=== PATIENT | female | born 1980 | race Caucasian/White ===

== ENCOUNTER 2019-08-21 19:01 | Inpatient (IN) | payer MEDICARE, MEDICAID, SELFPAY | END 2019-08-23 15:27 | disposition home or self-care (01) | DRG 682 | PROVIDERS: Admitting Provider Internal Medicine; Emergency Provider Emergency Medicine; Family Provider Family Medicine; Visit Provider Student in an Organized Health Care Education/Training Program | DX: I12.0 Hypertensive chronic kidney disease with stage 5 chronic kidney disease or end stage renal disease (principal); N18.6 End stage renal disease; E87.2 Acidosis; Q61.3 Polycystic kidney, unspecified; Z99.2 Dependence on renal dialysis; B19.20 Unspecified viral hepatitis C without hepatic coma; F41.8 Other specified anxiety disorders; Z91.15 Patient's noncompliance with renal dialysis; F17.210 Nicotine dependence, cigarettes, uncomplicated ==

== ENCOUNTER → 2019-08-28 10:57 | Outpatient (BNVA) | payer MEDICARE, MEDICAID, SELFPAY | PROVIDERS: Family Provider Family Medicine; PCP Family Medicine; Visit Provider Internal Medicine | DX: B18.2 Chronic viral hepatitis C (principal); N18.6 End stage renal disease; Z99.2 Dependence on renal dialysis | CPT/HCPCS: 82105 ==

== ENCOUNTER 2019-08-29 22:51 | Observation (INO) | payer MEDICARE, MEDICAID, SELFPAY ==
[2019-08-29 22:54] VITALS: BP 155/107; PULSE 88; RESP 16; TEMP 37; O2SAT 97; BMI 14.1
--- NOTE | 2019-08-29 23:06 | XRR_ITS ---
PROCEDURE INFORMATION: Exam: XR Chest, 1 View Exam date and time: 08/29/2019 11:08 PM Age: 39 years old Clinical indication: Cough and shortness of breath; Chest pain; Type not specified; Prior surgery; Surgery date: 6+ months; Surgery type: Dialysis port; Additional info: Cp TECHNIQUE: Imaging protocol: XR of the chest Views: 1 view. COMPARISON: CR Chest 1 [place] [id number] 08/21/2019 7:30 PM FINDINGS: Lungs: Unremarkable. No consolidation. Pleural space: Unremarkable. No pleural effusion. No pneumothorax. Heart/Mediastinum: The heart remains mildly enlarged. Vasculature: Chronic vascular stent in the left axilla. Bones/joints: No acute infiltrate or effusion. XR/XR chest 1V portable [id number] IMPRESSION: No acute findings
--- NOTE | 2019-08-29 23:07 | ECG_ITS ---
Measurements Intervals [place] Rate: 93 P: 56 WA: 144 QRS: 65 QRSD: 86 T: 77 QT: 377 QTc: 470 SINUS RHYTHM POSSIBLE LEFT ATRIAL ENLARGEMENT [-0.1mV P WAVE IN V1/V2] INDETERMINATE AXIS Compared to ECG 08/21/2019 20:22:46 Indeterminate axis now present Electronically Signed On 08-30-2019 14:57:51 RAIL CAR MAINTENANCE MECHANIC by Abby Durán M.D. [id number]
[2019-08-29 23:15] VITALS: BP 155/107; PULSE 95; RESP 18; O2SAT 96
[2019-08-29 23:16] LABS: Basophils % 0.6 %; Eosinophils # 0.2 10^3/uL (0.0-0.8); Eosinophils % 3.4 %; Hematocrit 27.5 % (37.0-47.0); Hemoglobin 8.5 g/dL (11.5-15.3); Lymphocytes # 1.2 10^3/uL (0.8-4.8); Lymphocytes % 23.7 %; Mean Corpuscular HGB Conc 30.9 g/dL (30.0-36.0); Mean Corpuscular Hemoglobin 30.4 pg (28.0-34.0); Mean Corpuscular Volume 98.2 fL (81-99); Mean Platelet Volume 13.1 fL (7.4-10.4); Monocytes # 0.4 10^3/uL (0.2-0.9); Monocytes % 8.3 %; Neutrophils # 3.1 10^3/uL (1.8-7.7); Neutrophils % 63.8 %; Nucleated Red Blood Cells % 0 %; Platelet Count 111 10^3/cmm (130-400); Red Cell Distribution Width 13.6 % (12.1-15.1); White Blood Count 4.9 10^3/uL (4.0-10.0)
--- NOTE | 2019-08-29 23:25 | ED_ITS ---
Entered by Carissa Hawley, acting as scribe for Aug 29, 2019 22:51 HPI - Chest Pain General: Chief Complaint: Chest Pain Stated Complaint: CHEST PRESSURE, SOB AND DIZZY Time Seen by Provider: 08/29/19 23:06 Source: patient Mode of arrival: ambulatory Limitations: no limitations History of Present Illness: HPI narrative: 39 yo f came to the er pov for chest pain, sob and dizzy. Onset was 5-6 hours ago. PT states that she was laying down when this started. Pt states that she also has been coughing and it is productive, she states that she is coughing up blood. Pt states that it hurts to breath most of the time. complaint: chest pain Onset (ago): hour(s) (5-6 hours ago) Timing of current episode: still present Prior episodes: No Onset: during rest Pain radiation: none Severity: mild Associated symptoms: Reports dyspnea; Deny abdominal pain or fever(s) Risk Factors: Thoracic aortic dissection risk factors: none Related Data: On Oral Contraceptives: No Review of Systems General: Reports: 10 or more systems reviewed and unremarkable except in HPI and below Const: Denies: fever Eyes: Denies: change in vision ENMT: Denies: throat pain Card: Reports: chest pain, shortness of breath on exertion and shortness of breath when lying down Resp: Reports: shortness of breath, productive cough and coughing up blood GI: Denies: abdominal pain : Reports: flank pain Musc: Denies: neck pain Skin/Breast: Reports: rash Neuro: Denies: headache Psych: Denies: anxiety Endo: Denies: excessive urination Kevan/Lymph: Denies: easy bruising All/Imm: Denies: hives PFSH ED PFSH: Statuses (acute, chronic, etc) shown below reflect problem list status as previously entered and may not be historically accurate Medical History (Updated 08/30/19 @ 02:35 by Acosta eB MD) Chronic hepatitis C (Acute) Depression (Acute) Hemodialysis access, AV graft (Acute) Hypertension (Acute) Methamphetamine use (Acute) Polycystic kidney disease (Acute) Polysubstance abuse (Acute) Staphylococcus aureus bacteremia (Acute) Family History (Updated 08/30/19 @ 02:32 by Acosta Be MD) Other Diabetes Hypertension Polycystic kidney disease Social History (Updated 08/30/19 @ 02:33 by Acosta Be MD) Smoking and tobacco status: current every day smoker Alcohol intake: never Substance/Drug Use: current Desire information about substance/drug rehabilitation?: No Counseling given: Yes Caregiver/support person: Yes Household members: family Marital status: Single Physical Exam Const: COMMON NORMALS: no apparent distress GENERAL APPEARANCE: cooperative and comfortable Eye: COMMON NORMALS: PERRL VISUAL ACUITY: Yes acuity normal PUPIL: Yes PERRL Neck/C-Spine: COMMON NORMALS: full ROM Resp: COMMON NORMALS: normal respiratory effort GI: INSPECTION: Yes normal to inspection : COMMON NORMALS: Yes no CVA tenderness BLADDER/KIDNEY EXAM: Yes no CVA tenderness Back/Pelvis: COMMON NORMALS: no CVA tenderness Extremity: COMMON NORMALS: normal to inspection Psych: COMMON NORMALS: mental status grossly normal Skin: COMMON NORMALS: no rashes or lesions noted GENERAL SKIN EXAM: no rashes or lesions noted Course Vital Signs: Vital signs: Vital Signs Temperature 98 F 08/30/19 03:32 Pulse Rate 75 08/30/19 03:32 Respiratory Rate 18 08/30/19 03:32 Blood Pressure 164/99 08/30/19 03:32 Pulse Oximetry 97 08/30/19 03:32 MDM - Chest Pain MDM Narrative: Medical decision making narrative: 39-year-old renal failure patient on dialysis. She presents with chest discomfort. Her troponin did not change. Her EKGs showed no acute ST changes. She rested comfortably in the room. Her d-dimer is elevated, but it was elevated much less than it was in April. Her potassium is elevated. Her creatinine is significant elevated. The patient maintains that she went to dialysis on Sunday, but I am not sure of this given these numbers. We will place the patient in observation, and try to ensure she gets dialyzed appropriately. Lab Data: Attestation: I reviewed the patient's lab results. Labs: Lab Results 08/29/19 08/29/19 08/29/19 Range/Units 22:26 22:26 22:26 WBC 4.9 (4.0-10.0) 10^3/ uL RBC 2.80 L (4.1-5.3) 10^6/u L Hgb 8.5 L (11.5-15.3) g/dL Hct 27.5 L (37.0-47.0) % MCV 98.2 (81-99) fL MCH 30.4 (28.0-34.0) pg MCHC 30.9 (30.0-36.0) g/dL RDW 13.6 (12.1-15.1) % Plt Count 111 L (130-400) 10^3/c mm MPV 13.1 H (7.4-10.4) fL Neut % (Auto) 63.8 % Lymph % (Auto) 23.7 % [place] % (Auto) 8.3 % Eos % (Auto) 3.4 % Baso % (Auto) 0.6 % Neut # (Auto) 3.1 (1.8-7.7) 10^3/u L Lymph # (Auto) 1.2 (0.8-4.8) 10^3/u L [place] # (Auto) 0.4 (0.2-0.9) 10^3/u L Eos # (Auto) 0.2 (0.0-0.8) 10^3/u L Baso # (Auto) 0.0 (0.0-0.1) 10^3/u L Nucleated RBC % (a uto) 0 % Nucleated RBCs # 0.0 /100WBC D-Dimer 1.99 H (0-0.59) ug/mIFE U Sodium 135 L (136-145) mmol/L Potassium 6.3 H (3.5-5.1) mmol/L Chloride 92 L (98-107) mmol/L Carbon Dioxide 18 L (22-29) mmol/L Anion Gap 31.3 H (5-19) BUN 87 H* (6-20) mg/dL Creatinine 15.8 H* (0.5-0.9) mg/dL GFR Calculation 2.6 L (90-130) mL/min Glucose 106 (74-109) mg/dL POC Glucose (70-110) mg/dL Calcium 8.5 L (8.6-10.0) mg/Dl Total Bilirubin 0.3 (0.15-1.2) mg/dL AST 25 (0-32) U/L ALT 18 (0-33) U/L Alkaline Phosphata se 41 (35-105) IU/L Troponin T Baselin e (0-10) ng/mL Troponin T 120 Min [place] (0-10) ng/mL Delta Troponin T (0-10) ABS# NT-Pro-B Natriuret Pep [id number] H (0-125) pg/mL Total Protein 7.9 (6.6-8.7) g/dL Albumin 4.7 (3.5-5.2) g/dL Globulin 3.2 (1.3-4.6) g/dL Urine Color (Yellow) Urine Appearance (CLEAR) Urine pH (5-7) Ur Specific Gravit y (1.005-1.030) Urine Protein (Negative) Urine Glucose (UA) (Normal) Urine Ketones (Negative) Urine Occult Blood (Negative) Urine Nitrate (Negative) Urine Bilirubin (NEGATIVE) Prot Sulfosalicyli c Acd Urine Urobilinogen (Negative) mg/dL Ur Leukocyte Stacy ase (Negative) Urine RBC (0-2) /hpf Urine WBC (0-5) /hpf Ur Squamous Epith Cells (0-5) Urine Bacteria (NONE) 08/29/19 08/29/19 08/29/19 Range/Units 22:26 23:24 23:25 WBC (4.0-10.0) 10^3/ uL RBC (4.1-5.3) 10^6/u L Hgb (11.5-15.3) g/dL Hct (37.0-47.0) % MCV (81-99) fL MCH (28.0-34.0) pg MCHC (30.0-36.0) g/dL RDW (12.1-15.1) % Plt Count (130-400) 10^3/c mm MPV (7.4-10.4) fL Neut % (Auto) % Lymph % (Auto) % [place] % (Auto) % Eos % (Auto) % Baso % (Auto) % Neut # (Auto) (1.8-7.7) 10^3/u L Lymph # (Auto) (0.8-4.8) 10^3/u L [place] # (Auto) (0.2-0.9) 10^3/u L Eos # (Auto) (0.0-0.8) 10^3/u L Baso # (Auto) (0.0-0.1) 10^3/u L Nucleated RBC % (a uto) % Nucleated RBCs # /100WBC D-Dimer (0-0.59) ug/mIFE U Sodium (136-145) mmol/L Potassium (3.5-5.1) mmol/L Chloride (98-107) mmol/L Carbon Dioxide (22-29) mmol/L Anion Gap (5-19) BUN (6-20) mg/dL Creatinine (0.5-0.9) mg/dL GFR Calculation (90-130) mL/min Glucose (74-109) mg/dL POC Glucose 100 (70-110) mg/dL Calcium (8.6-10.0) mg/Dl Total Bilirubin (0.15-1.2) mg/dL AST (0-32) U/L ALT (0-33) U/L Alkaline Phosphata se (35-105) IU/L Troponin T Baselin e 50 H (0-10) ng/mL Troponin T 120 Min [place] (0-10) ng/mL Delta Troponin T (0-10) ABS# NT-Pro-B Natriuret Pep (0-125) pg/mL Total Protein (6.6-8.7) g/dL Albumin (3.5-5.2) g/dL Globulin (1.3-4.6) g/dL Urine Color Yellow (Yellow) Urine Appearance Sl cloudy A (CLEAR) Urine pH 8 H (5-7) Ur Specific Gravit y 1.010 (1.005-1.030) Urine Protein 3+ H (Negative) Urine Glucose (UA) 1+ (Normal) Urine Ketones Negative (Negative) Urine Occult Blood 2+ H (Negative) Urine Nitrate Negative (Negative) Urine Bilirubin Neg (NEGATIVE) Prot Sulfosalicyli c Acd Negative Urine Urobilinogen Norm (Negative) mg/dL Ur Leukocyte Stacy ase 2+ H (Negative) Urine RBC 5-10 H (0-2) /hpf Urine WBC 25-40 H (0-5) /hpf Ur Squamous Epith Cells 0-4 H (0-5) Urine Bacteria 1+ H (NONE) 08/30/19 Range/Units 00:11 WBC (4.0-10.0) 10^3/ uL RBC (4.1-5.3) 10^6/u L Hgb (11.5-15.3) g/dL Hct (37.0-47.0) % MCV (81-99) fL MCH (28.0-34.0) pg MCHC (30.0-36.0) g/dL RDW (12.1-15.1) % Plt Count (130-400) 10^3/c mm MPV (7.4-10.4) fL Neut % (Auto) % Lymph % (Auto) % [place] % (Auto) % Eos % (Auto) % Baso % (Auto) % Neut # (Auto) (1.8-7.7) 10^3/u L Lymph # (Auto) (0.8-4.8) 10^3/u L [place] # (Auto) (0.2-0.9) 10^3/u L Eos # (Auto) (0.0-0.8) 10^3/u L Baso # (Auto) (0.0-0.1) 10^3/u L Nucleated RBC % (a uto) % Nucleated RBCs # /100WBC D-Dimer (0-0.59) ug/mIFE U Sodium (136-145) mmol/L Potassium (3.5-5.1) mmol/L Chloride (98-107) mmol/L Carbon Dioxide (22-29) mmol/L Anion Gap (5-19) BUN (6-20) mg/dL Creatinine (0.5-0.9) mg/dL GFR Calculation (90-130) mL/min Glucose (74-109) mg/dL POC Glucose (70-110) mg/dL Calcium (8.6-10.0) mg/Dl Total Bilirubin (0.15-1.2) mg/dL AST (0-32) U/L ALT (0-33) U/L Alkaline Phosphata se (35-105) IU/L Troponin T Baselin e (0-10) ng/mL Troponin T 120 Min [place] 51.63 H (0-10) ng/mL Delta Troponin T 1.63 (0-10) ABS# NT-Pro-B Natriuret Pep (0-125) pg/mL Total Protein (6.6-8.7) g/dL Albumin (3.5-5.2) g/dL Globulin (1.3-4.6) g/dL Urine Color (Yellow) Urine Appearance (CLEAR) Urine pH (5-7) Ur Specific Gravit y (1.005-1.030) Urine Protein (Negative) Urine Glucose (UA) (Normal) Urine Ketones (Negative) Urine Occult Blood (Negative) Urine Nitrate (Negative) Urine Bilirubin (NEGATIVE) Prot Sulfosalicyli c Acd Urine Urobilinogen (Negative) mg/dL Ur Leukocyte Stacy ase (Negative) Urine RBC (0-2) /hpf Urine WBC (0-5) /hpf Ur Squamous Epith Cells (0-5) Urine Bacteria (NONE) Discharge Plan Discharge Patient Disposition: Placed in Observation Admit Provider: Acosta Be Condition: Stable Interventions: ED Discharge Assessment Last Done: 08/30/19 03:06 Discharge Date/Time: 08/30/19 03:12 Coding Level of Care Code ED Balloon Seller for Chg Fwd Exam Problem Focused The documentation recorded by the Chandan martinez Stephanie Lyn, accurately reflects the service I personally performed and the decisions made by Darius michael Jeremy John, DO Aug 29, 2019 22:51
[2019-08-29 23:28] LABS: Glucose Point of Care 100 mg/dL (70-110)
[2019-08-29 23:35] LABS: Troponin(5th) Baseline 50 ng/mL (0-10)
[2019-08-29 23:42] LABS: D Dimer 1.99 ug/mIFEU (0-0.59)
[2019-08-29 23:59] LABS: Alanine Aminotransferase 18 U/L (0-33); Albumin Level 4.7 g/dL (3.5-5.2); Alkaline Phosphatase 41 IU/L (35-105); Anion Gap 31.3 (5-19); Aspartate Amino Transferase 25 U/L (0-32); Calcium 8.5 mg/Dl (8.6-10.0); Carbon Dioxide 18 mmol/L (22-29); Chloride 92 mmol/L (98-107); Globulin 3.2 g/dL (1.3-4.6); Glomerular Filtration Rate 2.6 mL/min (90-130); Glucose 106 mg/dL (74-109); Potassium 6.3 mmol/L (3.5-5.1); Sodium 135 mmol/L (136-145); Total Bilirubin 0.3 mg/dL (0.15-1.2); Total Protein 7.9 g/dL (6.6-8.7)
[2019-08-30] VITALS (17 sets, daily range): BP systolic 102–164; BP diastolic 68–109; PULSE 68–112; RESP 14–19; TEMP 36.6–36.8; O2SAT 80–100
[2019-08-30 00:05] LABS: Blood Urea Nitrogen 87 mg/dL (6-20)
[2019-08-30 00:36] LABS: Troponin 5 2HR 51.63 ng/mL (0-10)
[2019-08-30 00:37] LABS: Troponin 5 2HR Delta 1.63 ABS# (0-10)
[2019-08-30] MEDS: ondansetron 2 mg/ML SDV 2 mL 4 MG IVP (00:45)
[2019-08-30] MEDS: morphine 4 mg/mL SDV 1 mL 2 MG IVP (00:45)
[2019-08-30 00:57] LABS: Bilirubin Urine Neg (NEGATIVE); Blood Urine 2+ (Negative); Glucose Urine UA 1+ (Normal); Ketones Urine Negative (Negative); Nitrate Urine Negative (Negative); Protein Urine 3+ (Negative); Urine Color Yellow (Yellow); Urobilinogen Urine Norm (Negative); pH Urine 8 (5-7)
[2019-08-30 00:58] LABS: Add Urine Microscopic? YES; Leukocyte Esterase Urine 2+ (Negative); Sulfosalicylic Acid Urine Negative
[2019-08-30 00:59] LABS: Add Urine Culture? Yes; Bacteria Urine 1+; Squamous Epithelial Cell Urine 0-4 (0-5); WBC Urine 25-40 /hpf (0-5)
--- NOTE | 2019-08-30 02:29 | PM.HP ---
Providers/Chief Complaint Primary Care Provider: Carie Man Chief Complaint: CHEST PRESSURE History of Present Illness Ruby Cortés is a 39 year old female who is well-known to our hospitalist service for her noncompliance multiple admissions because of missing dialysis sessions, hyperkalemia polysubstance abuse came in after experiencing chest pressure. Patient is stating that she was watching television when she experienced pressure-like sensation substernally which lasted for 2 hours and got relieved on its own without any medications. She is endorsing that she has undergone dialysis Sunday and Sunday and they have taken 1 L out on Sunday. She is currently smoking 3 to 4 cigarettes a day she is denying methamphetamine or cocaine use. Currently she is living alone, she has multiple skin eruption secondary to high phosphate and she is not taking phosphate binders at home. She is saying that she forgets to take her medications. She is currently on IV cefazolin regimen she still has 10 more doses to be completed for MSSA bacteremia. In ER she is not endorsing such symptoms, systolic blood pressure is 200, diastolic 100 mmHg, high d-dimer was seen in ER, VQ scan has been requested, troponin reviewed, She did not have any clonidine patch on on my evaluation I have added calcium gluconate, dextrose, albuterol high-dose with insulin Repeat potassium Review of Systems Narrative: Patient is not endorsing any chest pain Denies shortness of breath Denies nausea Denies dizziness Denies extremity pain or myalgia Positive for skin eruptions, pruritic rash Anorexia positive Anxiety positive No dysuria No nausea or vomiting No orthopnea or PND, no shortness of breath No active chest pain Positive for recurrent sneezing and allergies Medications/Allergies Home Medications Medication Instructions Recorded Confirmed Last Taken Type clonidine 08/29/19 08/29/19 Unknown History ferric citrate [Auryxia] 2,000 mg PO TID 08/29/19 08/29/19 08/29/19 History nifedipine PO 08/29/19 Unknown History Allergies Allergy/AdvReac Type Severity Reaction Status Date / Time clindamycin Allergy Unknown Unknown Verified 08/28/19 11:12 codeine Allergy Unknown Unknown Verified 08/28/19 11:12 erythromycin base Allergy Unknown Unknown Verified 08/28/19 11:12 ketorolac [From Toradol] Allergy Unknown Unknown Verified 08/28/19 11:12 levofloxacin [From Levaquin] Allergy Unknown Unknown Verified 08/28/19 11:12 ondansetron [From Zofran] Allergy Unknown Unknown Verified 08/28/19 11:12 Penicillins Allergy Unknown Unknown Verified 08/28/19 11:12 tramadol [From Ultram] Allergy Unknown Unknown Verified 08/28/19 11:12 PFSH Acute PFSH: Statuses (acute, chronic, etc) shown below reflect problem list status as previously entered and may not be historically accurate Medical History (Updated 08/30/19 @ 02:35 by Acosta Be MD) Chronic hepatitis C (Acute) Depression (Acute) Hemodialysis access, AV graft (Acute) Hypertension (Acute) Methamphetamine use (Acute) Polycystic kidney disease (Acute) Polysubstance abuse (Acute) Staphylococcus aureus bacteremia (Acute) Family History (Updated 08/30/19 @ 02:32 by Acosta Be MD) Other Diabetes Hypertension Polycystic kidney disease Social History (Updated 08/30/19 @ 02:33 by Acosta Be MD) Smoking and tobacco status: current every day smoker Alcohol intake: never Substance/Drug Use: current Desire information about substance/drug rehabilitation?: No Counseling given: Yes Caregiver/support person: Yes Household members: family Marital status: Single Vitals/I&O/Wt Last Vital Signs Temp 98.6 F 08/29/19 22:54 Pulse 107 H 08/30/19 00:48 Resp 18 08/30/19 00:48 BP 128/88 08/30/19 00:48 Pulse Ox 98 08/30/19 00:48 Weight last 48 hrs Weight 36.287 kg Physical Exam Narrative: EXAM NARRATIVE: Appears more than stated age, frail and cachectic Has multiple papular skin eruptions, pruritic No signs of cellulitis Mild hyperemia of conjunctivo-bilaterally without any active discharge Lungs sound clear to auscultation no adventitial sounds Abdomen soft nontender nondistended bowel sounds present Neurologically nonfocal exam Anxiety positive Muscle wasting positive No signs of active fluid overload A&P Assessment and plan (1) Hyperkalemia: Status: Acute Code(s): E87.5 - Hyperkalemia (2) Metabolic acidosis: Status: Acute Code(s): E87.2 - Acidosis (3) ESRD (end stage renal disease): Status: Acute Code(s): N18.6 - End stage renal disease Additional A&P Information Additional A&P Information: Hyperkalemia with metabolic acidosis with underlying end-stage renal disease I will give her calcium gluconate, 10 units of insulin along D50 and 4 puffs of albuterol I would not use Kayexalate because of her end-stage renal disease for now Repeat potassium in the morning and if it stays consistently high will consult her studio operations engineer in charge for dialysis No active hyperkalemic EKG changes, currently patient is chest pain-free, no symptoms, I highly doubt if she is eating renal dialysis diet because of her noncompliance We will check drug screen End-stage renal disease: Dialysis Sunday via left-sided AV graft She is noncompliant with phosphate binders Has multiple skin eruptions Atypical chest pain with high d-dimer We will check VQ scan to rule out pulmonary embolism For now I will give her heparin DVT prophylaxis Currently chest pain-free, no EKG changes for ischemia, troponin 50, 2-hour delta less than 2 Patient is stating previously she had similar complaints when she was diagnosed with panic attack Refractory hypertension: I will give her nifedipine extended release 90 mg, clonidine patch 0.3 mg, hydralazine for as needed use and keep her on metoprolol tartrate 50 mg twice a day Full code DVT prophylaxis: Heparin Attestations Medical Necessity Statement*: Anticipating her stay to be less than 48 hours, currently giving medical treatment for hyperkalemia if needed will get dialyzed in the morning Time Spent in Patient Care: 16 - 35 minutes 45 Coding Level of Care Code 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
--- NOTE | 2019-08-30 03:32 | NMR_ITS ---
PROCEDURE INFORMATION: Exam: NV Lung Ventilation and Perfusion Imaging Exam date and time: 08/30/2019 10:07 AM Age: 39 years old Clinical indication: Chest pain; Type not specified; Additional info: High d dimer and chest pain TECHNIQUE: Imaging protocol: Nuclear pulmonary ventilation with aerosol or gas was performed followed by perfusion. Views: Ventilation acquired with multiple projections. Perfusion acquired with multiple projections. Radiopharmaceutical: 30.1 mCi of Tc-99m DTPA, inhaled. 4.8 mCi of Tc-99m MAA, IV. COMPARISON: CR (CHEST, ) 08/29/2019 11:35 PM FINDINGS: Ventilation: Normal. No ventilation defects. Perfusion: Normal. No perfusion defects. NV/NV pul vent and perfus* [id number] IMPRESSION: Normal perfusion. No evidence of pulmonary embolism.
[2019-08-30] MEDS: ceFAZolin 1,000 mg SDV 1000 MG IVP (04:35)
[2019-08-30] MEDS: NIFEdipine ER (24 hr) 30 mg Tablet 90 MG PO (04:36)
[2019-08-30] MEDS: insulin regular-human 10 UNIT in SYRINGE 1 EACH IVP (04:42)
[2019-08-30] MEDS: dextrose 50% syringe 50 mL 25 ML IVP (04:53)
[2019-08-30 04:56] LABS: Basophils % 0.6 %; Eosinophils # 0.2 10^3/uL (0.0-0.8); Eosinophils % 3.2 %; Hemoglobin 8.8 g/dL (11.5-15.3); Lymphocytes # 1.4 10^3/uL (0.8-4.8); Lymphocytes % 27.1 %; Mean Corpuscular HGB Conc 30.3 g/dL (30.0-36.0); Mean Corpuscular Hemoglobin 30.9 pg (28.0-34.0); Mean Corpuscular Volume 101.8 fL (81-99); Mean Platelet Volume 12.7 fL (7.4-10.4); Monocytes # 0.5 10^3/uL (0.2-0.9); Monocytes % 8.7 %; Neutrophils # 3.2 10^3/uL (1.8-7.7); Neutrophils % 60.2 %; Nucleated Red Blood Cells % 0 %; Platelet Count 117 10^3/cmm (130-400); Red Blood Count 2.85 10^6/uL (4.1-5.3); Red Cell Distribution Width 13.4 % (12.1-15.1); White Blood Count 5.3 10^3/uL (4.0-10.0)
--- NOTE | 2019-08-30 05:07 | ECG_ITS ---
Measurements Intervals [place] Rate: 80 P: 45 GA: 149 QRS: 57 QRSD: 93 T: 70 QT: 405 QTc: 470 SINUS RHYTHM POSSIBLE LEFT ATRIAL ENLARGEMENT [-0.1mV P WAVE IN V1/V2] Compared to ECG 08/21/2019 20:22:46 No significant changes Electronically Signed On 08-30-2019 15:02:08 BUILDING CARPENTER by Abby Durán M.D. [id number]
[2019-08-30] MEDS: calcium gluconate 0.1 gm/mL 10% SDV 10mL 1 GM IVP (05:12)
[2019-08-30] MEDS: cloNIDine 0.3 mg/24 hr Patch 1 PATCH TRANSDERMA (05:12)
[2019-08-30 05:16] LABS: Glucose Point of Care 94 mg/dL (70-110)
[2019-08-30 05:18] LABS: ABG PCO2 34.7 mmHg (35-45); ABG PH Result 7.34 (7.35-7.45); Arterial Blood Gas Hematocrit 27.3 % (37-47); Base Excess ABG -6.4 mmol/L (-2.0-2.0); Blood Gas Allen Test Pos; Blood Gas Sample Site Radial, right; Blood Gas Sample Type Arterial; HCO3 ABG 18.7 mmol/L (22-26); PO2 ABG 84.6 mmHg (80.0-100.0)
[2019-08-30 05:41] LABS: Anion Gap 29.2 (5-19); Blood Urea Nitrogen 78 mg/dL (6-20); Calcium 8.4 mg/Dl (8.6-10.0); Carbon Dioxide 18 mmol/L (22-29); Chloride 97 mmol/L (98-107); Glomerular Filtration Rate 2.4 mL/min (90-130); Glucose 90 mg/dL (74-109); Sodium 137 mmol/L (136-145); Troponin 5 6HR 47.89 ng/L (0-10)
[2019-08-30 05:42] LABS: Phosphorus 10.9 mg/dL (2.5-4.5)
[2019-08-30 05:56] LABS: Potassium 7.2 mmol/L (3.5-5.1)
[2019-08-30 05:59] LABS: Troponin 5 6HR Delta -2.11 ng/L (0-12)
[2019-08-30 06:52] LABS: Amphetamines Screen Urine Negative (Negative); Barbiturates Screen Urine Negative (Negative); Benzodiazepines Screen Urine Negative (Negative); Cocaine Screen Urine Negative (Negative); Opiate Screen Urine Negative (Negative); PCP Screen Urine Negative (Negative); THC Screen Urine Negative (Negative)
[2019-08-30 07:51] LABS: Glucose Point of Care 67 mg/dL (70-110)
[2019-08-30] MEDS: morphine 4 mg/mL SDV 1 mL IVP ×3 (09:12→20:09)
[2019-08-30] MEDS: sevelamer 800 mg Tablet PO ×3 (09:12→20:11)
[2019-08-30] MEDS: metoprolol tartrate 25 mg Tablet PO (09:12)
--- NOTE | 2019-08-30 09:39 | PM.CONSULT ---
Providers/Reason For Consult Consulting Physican/Specialty*: [place]/Telenephrology Reason for Consult*: ESRD Management and dialysis need Requesting Physcian: Hospitalist Attending Physician: Usama Bowser Primary Care Provider: Carie Man History of Present Illness History of Present Illness Ruby Cortés is a 39 year old female who presented with chest pain which started yesterday. Telenephrology was consulted for ESRD management and dialysis needs as potassium level was 7.2, last dialysis was on . No fever, chills ,nausea, vomiting or diarrhea. No shortness of breath. No pnd,orthopnea,cough,headache or dizziness Review of Systems Const: Denies: fever, chills, body aches or diaphoresis Card: Reports: chest pain; Denies: palpitations, irregular heart rhythm, edema, swelling of feet/ankles, syncope or shortness of breath on exertion Resp: Denies: shortness of breath or productive cough GI: Denies: abdominal pain, nausea, vomiting, vomiting blood, heartburn/indigestion, diarrhea or constipation Musc: Denies: back pain or extremity swelling Skin/Breast: Denies: rash Neuro: Denies: headache or weakness in extremities Psych: Denies: anxiety or depression Kevan/Lymph: Denies: easy bruising or easy bleeding All/Imm: Denies: hives Meds/Allergies Home Medications and Allergies Home Medications Medication Instructions Recorded Confirmed Type metoprolol succinate 25 mg 50 mg PO BID tab 08/21/19 08/29/19 History tablet,extended release 24 hr clonidine 08/29/19 08/29/19 History ferric citrate [Auryxia] 2,000 mg PO TID 08/29/19 08/29/19 History nifedipine PO 08/29/19 History Allergies Allergy/AdvReac Type Severity Reaction Status Date / Time clindamycin Allergy Unknown Unknown Verified 08/28/19 11:12 codeine Allergy Unknown Unknown Verified 08/28/19 11:12 erythromycin base Allergy Unknown Unknown Verified 08/28/19 11:12 ketorolac [From Toradol] Allergy Unknown Unknown Verified 08/28/19 11:12 levofloxacin [From Levaquin] Allergy Unknown Unknown Verified 08/28/19 11:12 ondansetron [From Zofran] Allergy Unknown Unknown Verified 08/28/19 11:12 Penicillins Allergy Unknown Unknown Verified 08/28/19 11:12 tramadol [From Ultram] Allergy Unknown Unknown Verified 08/28/19 11:12 Current Medications Current Medications Generic Name Dose Route Start Last Admin Trade Name Freq PRN Reason Stop Dose Admin Clonidine HCl 1 patch 08/30/19 06:00 08/30/19 05:12 Catapres-Tts 3 TRANSDERMA 1 patch Q7D LANDY Administration Heparin Sodium (Beef Lung) 5,000 unit 08/30/19 03:32 08/30/19 04:53 Heparin SUBCUT Not Given Q8H LANDY Metoprolol Tartrate 25 mg 08/30/19 09:00 08/30/19 09:12 Lopressor PO 25 mg BID LANDY Administration Morphine Sulfate 4 mg 08/30/19 03:32 08/30/19 09:12 Morphine IVP 4 mg Q4H PRN Administration SEVERE PAIN Sevelamer Carbonate 800 mg 08/30/19 09:00 08/30/19 09:12 Renvela PO 800 mg TID LANDY Administration PFSH Acute PFSH: Statuses (acute, chronic, etc) shown below reflect problem list status as previously entered and may not be historically accurate Medical History (Updated 08/30/19 @ 12:02 by [place]) Anemia (Acute) Anemia (Chronic) Chronic hepatitis C (Acute) Depression (Acute) ESRD (end stage renal disease) (Acute) Hemodialysis access, AV graft (Acute) Hypertension (Acute) Methamphetamine use (Acute) Polycystic kidney disease (Acute) Polysubstance abuse (Acute) Renal osteodystrophy (Acute) Staphylococcus aureus bacteremia (Acute) Family History Other Diabetes Hypertension Polycystic kidney disease Social History Smoking and tobacco status: current every day smoker Alcohol intake: never Substance/Drug Use: current Desire information about substance/drug rehabilitation?: No Counseling given: Yes Caregiver/support person: Yes Household members: family Marital status: Single Vitals/I&O/Wt Last Vital Signs Temp 98.1 F 08/30/19 07:31 Pulse 112 H 08/30/19 08:01 Resp 16 08/30/19 09:12 BP 143/87 01/04/20 07:31 Pulse Ox 98 08/30/19 08:01 Weight last 48 hrs Weight 36.287 kg Physical Exam Const: COMMON NORMALS: no apparent distress, oriented x3 and alert GENERAL APPEARANCE: cooperative Extremity: GENERAL: Yes AV fistula (AV graft present) OTHER: no pedal edema Neuro: COMMON NORMALS: oriented x3 SENSORIUM/ORIENTATION: Yes alert Skin: COMMON NORMALS: negative for no rashes or lesions noted GENERAL SKIN EXAM: rashes and/or lesions noted Data Labs: Other Labs: Labs Reviewed A&P Assessment and plan (1) ESRD (end stage renal disease): Will plan hemodialysis today for 3hrs, 2k, 2.5 Ca, Status: Acute Code(s): N18.6 - End stage renal disease (2) Hyperkalemia: Will correct with dialysis Status: Acute Code(s): E87.5 - Hyperkalemia (3) Hypertension: Will monitor BP closely Status: Acute Code(s): I10 - Essential (primary) hypertension (4) Metabolic acidosis: Will correct with dialysis Status: Acute Code(s): E87.2 - Acidosis (5) Anemia: Will consider erythropoietin as needed Status: Chronic Code(s): D64.9 - Anemia, unspecified Consult Attestations Medical Necessity Statement: high k Coding Level of Care Code Acute 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
--- NOTE | 2019-08-30 09:57 | P.PN_ITS ---
Subjective Subjective: Interval history: No further chest pain. When asked if she needs anything request for pain medication for her chronic kidney pain. States that at home she takes morphine for it. Says that it is given to her by Dr. Man. Says that she takes liquid formulation. Vitals/I&O/Wt Last Vital Signs Temp 98.1 F 08/30/19 07:31 Pulse 112 H 08/30/19 08:01 Resp 16 08/30/19 09:12 BP 143/87 08/30/19 07:31 Pulse Ox 98 08/30/19 08:01 Weight last 48 hrs Weight 36.287 kg Physical Exam Const: COMMON NORMALS: no apparent distress and oriented x3 HENMT: COMMON NORMALS: oropharynx normal Neck/C-Spine: COMMON NORMALS: no JVD Resp: COMMON NORMALS: normal respiratory effort and clear to auscultation bilaterally AUSCULTATION: clear to auscultation bilaterally Cardio: COMMON NORMALS: no JVD, regular rhythm, S1 normal heart sound, S2 normal heart sound and no murmurs RHYTHM: regular rhythm HEART SOUNDS: S1 normal and S2 normal GI: COMMON NORMALS: normal to inspection, nondistended, normoactive bowel sounds, soft to palpation and non-tender PALPATION: Yes soft Extremity: COMMON NORMALS: no joint enlargement and no pedal edema Neuro: COMMON NORMALS: oriented x3 and moves all extremities Skin: COMMON NORMALS: no rashes or lesions noted GENERAL SKIN EXAM: no rashes or lesions noted and excoriation(s) (Noted on lower extremities) A&P Assessment and plan (1) Hyperkalemia: Nephrology organizing HD Status: Acute Code(s): E87.5 - Hyperkalemia (2) Metabolic acidosis: Status: Acute Code(s): E87.2 - Acidosis (3) ESRD (end stage renal disease): Status: Acute Code(s): N18.6 - End stage renal disease (4) Chest pain: Resolved. Troponin with mild elevation, without significant delta. Even though she is denying chest pain, when I am about to leave the room she is request for pain medication. When asked where her pain is reports chronic pain in her kidneys. When asked what she takes at home states morphine which she says given to her by Dr. Man. Status: Acute Code(s): R07.9 - Chest pain, unspecified Additional A&P Information Additional A&P Information: Possible UTI: There is 25-40 WBC in urine. 5-10 RBC. Negative nitrite. She just had a renal CT 08/21/2019 without any finding of stone or hydronephrosis. She is polycystic kidneys. Back in August 2017 UTI with E. coli resistant to ampicillin, otherwise sensitive. She is on ceftezolin reportedly to bacteremia. Follow urine culture. Attestations Medical Necessity Statement*: Continue admission for assessment of management of severe hyperkalemia. Coding Level of Care Code Acute Transliterator for [facility] Fwd Diagnoses Hyperkalemia E87.5 Metabolic acidosis E87.2 ESRD (end stage renal disease) N18.6 Chest pain R07.9
--- NOTE | 2019-08-30 13:01 | PC.CHAP ---
The patient was asleep at this time, will revisit tomorrow. Marlee Gonzalez.
[2019-08-30] MEDS: ALPRAZolam 0.5 mg Tablet PO (18:10)
[2019-08-30 21:05] LABS: Potassium 3.6 mmol/L (3.5-5.1)
[2019-08-31] VITALS: BP 107/56; PULSE 99; RESP 16; TEMP 36.3; O2SAT 98
[2019-08-31 04:00] VITALS: BP 100/68; RESP 16; TEMP 36.8; O2SAT 98
[2019-08-31 05:28] LABS: Basophils % 0.6 %; Eosinophils # 0.1 10^3/uL (0.0-0.8); Eosinophils % 2.6 %; Hematocrit 27.1 % (37.0-47.0); Hemoglobin 8.2 g/dL (11.5-15.3); Lymphocytes # 1.1 10^3/uL (0.8-4.8); Mean Corpuscular HGB Conc 30.3 g/dL (30.0-36.0); Mean Corpuscular Hemoglobin 30.7 pg (28.0-34.0); Mean Corpuscular Volume 101.5 fL (81-99); Mean Platelet Volume 12.2 fL (7.4-10.4); Monocytes # 0.4 10^3/uL (0.2-0.9); Monocytes % 11.1 %; Neutrophils # 1.9 10^3/uL (1.8-7.7); Neutrophils % 53.4 %; Nucleated Red Blood Cells % 0 %; Platelet Count 110 10^3/cmm (130-400); Red Blood Count 2.67 10^6/uL (4.1-5.3); Red Cell Distribution Width 13.7 % (12.1-15.1); White Blood Count 3.5 10^3/uL (4.0-10.0)
[2019-08-31 05:52] LABS: Alanine Aminotransferase 14 U/L (0-33); Albumin Level 4.3 g/dL (3.5-5.2); Alkaline Phosphatase 37 IU/L (35-105); Anion Gap 16.7 (5-19); Aspartate Amino Transferase 25 U/L (0-32); Blood Urea Nitrogen 23 mg/dL (6-20); Calcium 8.9 mg/Dl (8.6-10.0); Carbon Dioxide 28 mmol/L (22-29); Chloride 100 mmol/L (98-107); Globulin 2.6 g/dL (1.3-4.6); Glomerular Filtration Rate 6.7 mL/min (90-130); Glucose 90 mg/dL (74-109); Potassium 5.7 mmol/L (3.5-5.1); Sodium 139 mmol/L (136-145); Total Bilirubin 0.2 mg/dL (0.15-1.2); Total Protein 6.9 g/dL (6.6-8.7)
[2019-08-31 08:00] VITALS: BP 130/92; PULSE 90; RESP 17
[2019-08-31] MEDS: metoprolol tartrate 25 mg Tablet PO (08:52)
[2019-08-31] MEDS: sevelamer 800 mg Tablet PO (08:52)
[2019-08-31 08:55] VITALS: RESP 14
[2019-08-31] MEDS: morphine 4 mg/mL SDV 1 mL IVP (08:55)
--- NOTE | 2019-08-31 10:03 | PM.DCS ---
Discharge Providers Date of Admission: 08/30/19 02:29 Date of Discharge: 08/31/19 Attending Provider at Admission: Acosta Be MD Attending Provider at Discharge: Usama Bowser Consults: Sim Mills MD Primary Care Provider: Carie Man Diagnoses at Discharge Discharge Diagnosis (1) ESRD (end stage renal disease): Status: Acute (2) Hyperkalemia: Status: Acute (3) Hypertension: Status: Acute (4) Metabolic acidosis: Status: Acute (5) Anemia: Status: Chronic Reason for Visit Reason for Visit: Reason For Visit: CHEST PRESSURE Hospital Course Discharge Summary: 39-year-old lady with history of ESRD, on hemodialysis MWF, HTN, polycystic kidney disease history of substance abuse, methamphetamine use, chronic otitis C, currently undergoing treatment for MSSA with ceftezole and. She presented to the hospital with complaint of chest pressure. Her last hemodialysis was on Sunday with reported 1 L taken out. On presentation she was found with hyperkalemia, acidosis, fluid overload. Her chest discomfort was atypical. D-dimer was abnormal, and VQ scan was ordered, and was without any defect suggestive of PE. Her chest discomfort resolved. EKG was not suggestive of acute ischemia. Troponin was mildly elevated, but in the setting of fluid overload, with ESRD, with insignificant delta. She has had a recent stress test in April as well which was not suggestive of ischemia. Blood pressure was elevated on presentation. She will need continued monitoring and optimization of medical therapy. Please continue to encourage compliance with medications. As blood pressure has normalized while not on nifedipine. For now dose will be decreased to 30mg, please adjust as appropriate. For hyperkalemia she initially received calcium gluconate, 10 units of insulin, D50, as well as albuterol nebulization. Her potassium was still elevated, as high as 7.2. Due to this she underwent extra hemodialysis on 08/30. She remains without any chest discomfort, saturating well on room air. Potassium has improved initially to 3.6, this morning at 5.7. She was cleared for discharge by nephrology with reinforcement of low potassium diet, and Kayexalate 30 mg twice daily for 2 days, with hemodialysis as regularly scheduled tomorrow. Physical Exam Const: COMMON NORMALS: no apparent distress and oriented x3 HENMT: COMMON NORMALS: oropharynx normal Neck/C-Spine: COMMON NORMALS: no JVD Resp: COMMON NORMALS: normal respiratory effort and clear to auscultation bilaterally AUSCULTATION: clear to auscultation bilaterally Cardio: COMMON NORMALS: no JVD, regular rhythm, S1 normal heart sound, S2 normal heart sound and no murmurs RHYTHM: regular rhythm HEART SOUNDS: S1 normal and S2 normal GI: COMMON NORMALS: normal to inspection, nondistended, normoactive bowel sounds, soft to palpation and non-tender PALPATION: Yes soft Extremity: COMMON NORMALS: no joint enlargement and no pedal edema Neuro: COMMON NORMALS: oriented x3 and moves all extremities Skin: COMMON NORMALS: no rashes or lesions noted GENERAL SKIN EXAM: no rashes or lesions noted Discharge Data Data Completed and Pending: Completed Studies During Hospitalization Category Date Time Status XR chest 1V kael ble [id number] Stat Exams 08/29/19 23:06 Completed NM pul vent and p erfus* [id number] Urgen t Nuc Med 08/30/19 03:32 Completed Pending at discharge Category Date Time Status ABG ONLY [Arteria l Blood Gas W/O Co ox] Routine Lab 08/30/19 05:07 Results Urine Culture Sta t Lab 08/29/19 23:25 Results Labs from last 24 hours 08/31/19 08/31/19 08/30/19 04:46 04:46 20:39 WBC 3.5 L RBC 2.67 L Hgb 8.2 L Hct 27.1 L MCV 101.5 H MCH 30.7 MCHC 30.3 RDW 13.7 Plt Count 110 L MPV 12.2 H Neut % (Auto) 53.4 Lymph % (Auto) 32.0 [place] % (Auto) 11.1 Eos % (Auto) 2.6 Baso % (Auto) 0.6 Neut # (Auto) 1.9 Lymph # (Auto) 1.1 [place] # (Auto) 0.4 Eos # (Auto) 0.1 Baso # (Auto) 0.0 Nucleated RBC % (a uto) 0 Nucleated RBCs # 0.0 Sodium 139 Potassium 5.7 H 3.6 Chloride 100 Carbon Dioxide 28 Anion Gap 16.7 BUN 23 H Creatinine 6.9 H* GFR Calculation 6.7 L Glucose 90 Calcium 8.9 Total Bilirubin 0.2 AST 25 ALT 14 Alkaline Phosphata se 37 Total Protein 6.9 Albumin 4.3 Globulin 2.6 Vitals: Last Vital Signs Temp 98.3 F 08/31/19 04:00 Pulse 90 08/31/19 08:00 Resp 14 08/31/19 08:55 BP 130/92 08/31/19 08:00 Pulse Ox 98 08/31/19 04:00 Discharge Plan Discharge Patient Disposition: Home, Self-Care Condition: Stable Prescriptions: New nifedipine 30 mg tablet extended release 30 mg PO DAILY Qty: 30 RF: 0 sodium polystyrene sulfonate 15 gram/60 mL suspension 120 ml PO BID 2 Days Qty: 480 RF: 0 Continued metoprolol succinate 25 mg tablet extended release 24 hr 50 mg PO BID RF: 0 Auryxia 210 mg iron tablet 2,000 mg PO TID RF: 0 clonidine 0.3 mg/24 hr patch weekly RF: 0 Discontinued nifedipine 60 mg tablet extended release 24hr PO RF: 0 Discharge Orders: Discharge Order (Routine); Ordered 08/31/19 Ordered By: Usama Bowser Referrals: Continue, hemodialysis [Other] (Tomorrow) 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 Please make sure to attend hemodialysis tomorrow. Please stop smoking. Please avoid any recreational drug use due to risk of severe reaction/life-threatening adverse effects. Please monitor your blood pressures 3 times daily. If your blood pressure is persistently high,/100, please seek medical attention. above 190 Discharge Attestations Time Spent in Discharge Care*: greater than 30 min Quality Metrics Clinical Quality Measures During this hospital stay, did patient experience: None Coding Level of Care Code Acute Chucking And Boring Machine Operator for [facility] Fwd Diagnoses ESRD (end stage renal disease) N18.6 Hyperkalemia E87.5 Hypertension I10 Metabolic acidosis E87.2 Anemia D64.9
[2019-08-31] MEDS: sodium polystyrene sulfonate 15 gm/60 mL Btl 30 GM PO (11:30)
--- NOTE | 2019-08-31 11:33 | PM.PN ---
Subjective Subjective: Interval history: Pt feeling fine. Got dialysis yesterday.Tolerated it well. No chest pain or shortness of breath Vitals/I&O/Wt Last Vital Signs Temp 98.3 F 08/31/19 04:00 Pulse 90 08/31/19 08:00 Resp 14 08/31/19 08:55 BP 130/92 08/31/19 08:00 Pulse Ox 98 08/31/19 04:00 08/30/19 08/31/19 08/31/19 22:59 06:59 14:59 Intake Total 360 / 360 Output Total 1660 / 1660 Balance -1300 / -1300 Weight last 48 hrs Weight 36.287 kg Physical Exam Const: COMMON NORMALS: no apparent distress, oriented x3 and alert GENERAL APPEARANCE: cooperative Chest: OTHER: No crackles Cardio: COMMON NORMALS: regular rate, S1 normal heart sound and S2 normal heart sound RATE: regular rate HEART SOUNDS: S1 normal and S2 normal GI: AUSCULTATION: Yes normoactive bowel sounds Extremity: GENERAL: Yes AV fistula (AV graft present) OTHER: no pedal edema Neuro: COMMON NORMALS: oriented x3 SENSORIUM/ORIENTATION: Yes alert Skin: COMMON NORMALS: negative for no rashes or lesions noted GENERAL SKIN EXAM: rashes and/or lesions noted Data Micro: Micro: Microbiology 08/29/19 23:25 Urine Culture - Pr eliminary Urine,Clean Catch A&P Assessment and plan (1) ESRD (end stage renal disease): Got hemodialysis yesterday. Pt was advised to be compliant with her dialysis treatments Status: Acute Code(s): N18.6 - End stage renal disease (2) Hyperkalemia: Corrected with dialysis. She needs to follow low k diet. ok to send her on kayexalate 30gm po bid for 2-3 days. D/w hospitalist Status: Acute Code(s): E87.5 - Hyperkalemia (3) Hypertension: BP under control Status: Acute Code(s): I10 - Essential (primary) hypertension (4) Metabolic acidosis: Corrected with dialysis Status: Acute Code(s): E87.2 - Acidosis (5) Anemia: Erythropoietin can be dosed in dialysis unit Status: Chronic Code(s): D64.9 - Anemia, unspecified Attestations Medical Necessity Statement*: chest pain Coding Level of Care Code Acute Backend Developer for [facility] Fwd Diagnoses ESRD (end stage renal disease) N18.6 Hyperkalemia E87.5 Hypertension I10 Metabolic acidosis E87.2 Anemia D64.9
[2019-08-31 11:38] VITALS: BP 130/92; PULSE 98; RESP 17; TEMP 36.6; O2SAT 94
[2019-09-03 08:33] LABS: Oxygen Device NC
== END 2019-08-31 11:55 | disposition home or self-care (01) ==
LOC: ER 23:14 → MEDSURG 08-30 03:05 → ICU 08-30 08:23
PROVIDERS: Internal Medicine; Admitting Provider Internal Medicine; Emergency Provider Emergency Medicine; Family Provider Family Medicine; PCP Family Medicine; Visit Provider Internal Medicine
DX: E87.5 Hyperkalemia (principal); E87.2 Acidosis; I12.0 Hypertensive chronic kidney disease with stage 5 chronic kidney disease or end stage renal disease; N18.6 End stage renal disease; R07.89 Other chest pain; D63.1 Anemia in chronic kidney disease; B18.2 Chronic viral hepatitis C; F32.9 Major depressive disorder, single episode, unspecified; Z82.49 Family history of ischemic heart disease and other diseases of the circulatory system; Z83.3 Family history of diabetes mellitus; Z84.1 Family history of disorders of kidney and ureter; F17.210 Nicotine dependence, cigarettes, uncomplicated; Z91.19 Patient's noncompliance with other medical treatment and regimen; F15.10 Other stimulant abuse, uncomplicated
CPT/HCPCS: 36415; 36416; 36600; 71045; 78014; 80048; 80053; 80307; 81003; 82803; 82962; 83880; 84100; 84132; 84484; 85025; 85378; 87086; 90935; 93005; 94640; 96374; 96375; 96376; 99282; 99285; A9540; A9567; G0378; J0610; J0690; J1815; J2270; J2405; J7611

== ENCOUNTER 2019-09-02 16:04 | Emergency (ER) | payer MEDICARE, MEDICAID, SELFPAY ==
[2019-09-02] VITALS (7 sets, daily range): BP systolic 135–157; BP diastolic 90–105; PULSE 91–102; RESP 14–18; TEMP 36.9; O2SAT 91–99; BMI 15.0
--- NOTE | 2019-09-02 16:23 | ED_ITS ---
Entered by Yolanda Hernandez, acting as scribe for HPI - SOB/Dyspnea General: Chief Complaint: Shortness of Breath/Dyspnea Stated Complaint: RESPIRATORY DISTRESS/ COUGHING UP BLOOD Time Seen by Provider: 09/02/19 16:17 Source: EMS Mode of arrival: EMS Limitations: no limitations History of Present Illness: HPI Narrative: 39 yo female presents with shortness of breath and cough. pt states she received dialysis and had increased shortness of breath. pt states she has cut back on smoking. pt has had fatigue and weakness. pt has had vomiting blood and productive cough with green sputum. pt denies any other symptoms at this time. MD elicited complaint: shortness of breath and cough (productive with green sputum) Pertinent past history: other (renal failure) Onset (ago): day(s) (today) Context: recent illness (pt was discharged Sunday for kidney issues) Timing: constant Severity: moderate Exacerbating factors: coughing Relieving factors: nothing Associated symptoms: Reports abdominal pain, cough, nausea and vomiting (blood); Deny chest pain, fever(s) or polyuria Treatment prior to arrival: none Review of Systems General: Reports: 10 or more systems reviewed and unremarkable except in HPI and below Const: Denies: fever or chills Eyes: Denies: change in vision ENMT: Denies: throat pain or mouth pain Card: Denies: chest pain Resp: Denies: shortness of breath GI: Reports: abdominal pain, nausea and vomiting (blood) : Denies: difficulty urinating Musc: Denies: back pain or joint pain Skin/Breast: Denies: rash Neuro: Denies: headache or behavioral changes Psych: Denies: sleeping more Endo: Denies: excessive urination [place]/Lymph: Denies: easy bruising All/Imm: Denies: hives PFSH ED PFSH: Statuses (acute, chronic, etc) shown below reflect problem list status as previously entered and may not be historically accurate Medical History Anemia (Acute) Anemia (Chronic) Chronic hepatitis C (Acute) Depression (Acute) ESRD (end stage renal disease) (Acute) Hemodialysis access, AV graft (Acute) Hypertension (Acute) Methamphetamine use (Acute) Polycystic kidney disease (Acute) Polysubstance abuse (Acute) Renal osteodystrophy (Acute) Staphylococcus aureus bacteremia (Acute) Family History Other Diabetes Hypertension Polycystic kidney disease Social History Smoking and tobacco status: current every day smoker Alcohol intake: never Desire information about substance/drug rehabilitation?: No Counseling given: Yes Caregiver/support person: Yes Household members: family Marital status: Single Physical Exam Const: COMMON NORMALS: no apparent distress and healthy appearing HENMT: COMMON NORMALS: normocephalic and external nose normal HEAD & SCALP: normocephalic NOSE: external nose normal and no nasal discharge (nasal dischage) Eye: COMMON NORMALS: PERRL PUPIL: Yes PERRL Neck/C-Spine: COMMON NORMALS: full ROM and no lymphadenopathy Chest: COMMONS NORMALS: inspection of chest normal Resp: COMMON NORMALS: normal respiratory effort and clear to auscultation bilaterally AUSCULTATION: clear to auscultation bilaterally Cardio: COMMON NORMALS: regular rate and regular rhythm RATE: regular rate RHYTHM: regular rhythm GI: COMMON NORMALS: soft to palpation PALPATION: Yes soft Extremity: COMMON NORMALS: normal to inspection, full ROM and normal capillary refill Psych: COMMON NORMALS: mental status grossly normal and cooperative Skin: COMMON NORMALS: no rashes or lesions noted GENERAL SKIN EXAM: no rashes or lesions noted Course Vital Signs: Vital signs: Vital Signs Temperature 98.5 F 09/02/19 16:14 Pulse Rate 104 H 09/03/19 02:46 Respiratory Rate 16 09/03/19 02:46 Blood Pressure 130/92 09/03/19 02:46 Pulse Oximetry 96 09/03/19 02:46 MDM - SOB/Dyspnea MDM Narrative: Medical decision making narrative: Original plan was to transfer to [facility] due to hyper kalemia and not having any bed availability. While patient was here after insulin her potassium is improved greatly and she is scheduled for dialysis in the morning and she would like to go home. I feel she is stable for discharge and does not need emergent dialysis and is to receive dialysis today at noon as scheduled. Lab Data: Labs: Lab Results 09/02/19 09/02/19 09/02/19 Range/Units 17:00 17:00 18:27 WBC 5.2 (4.0-10.0) 10^3/ uL RBC 2.70 L (4.1-5.3) 10^6/u L Hgb 8.4 L (11.5-15.3) g/dL Hct 28.1 L (37.0-47.0) % MCV 104.1 H (81-99) fL MCH 31.1 (28.0-34.0) pg MCHC 29.9 L (30.0-36.0) g/dL RDW 13.5 (12.1-15.1) % Plt Count 103 L (130-400) 10^3/c mm MPV 12.5 H (7.4-10.4) fL Neut % (Auto) 69.4 % Lymph % (Auto) 17.9 % [place] % (Auto) 8.8 % Eos % (Auto) 2.9 % Baso % (Auto) 0.4 % Neut # (Auto) 3.6 (1.8-7.7) 10^3/u L Lymph # (Auto) 0.9 (0.8-4.8) 10^3/u L [place] # (Auto) 0.5 (0.2-0.9) 10^3/u L Eos # (Auto) 0.2 (0.0-0.8) 10^3/u L Baso # (Auto) 0.0 (0.0-0.1) 10^3/u L Nucleated RBC % (a uto) 0 % Nucleated RBCs # 0.0 /100WBC Sodium (136-145) mmol/L Potassium (3.5-5.1) mmol/L Chloride (98-107) mmol/L Carbon Dioxide (22-29) mmol/L Anion Gap (5-19) BUN (6-20) mg/dL Creatinine (0.5-0.9) mg/dL GFR Calculation (90-130) mL/min Glucose (74-109) mg/dL Calcium (8.6-10.0) mg/Dl Urine Color Yellow (Yellow) Urine Appearance Sl hazy (CLEAR) Urine pH 9 H (5-7) Ur Specific Gravit y 1.010 (1.005-1.030) Urine Protein 2+ H (Negative) Urine Glucose (UA) 2+ (Normal) Urine Ketones Negative (Negative) Urine Occult Blood 2+ H (Negative) Urine Nitrate Negative (Negative) Urine Bilirubin Neg (NEGATIVE) Prot Sulfosalicyli c Acd Positive Urine Urobilinogen Norm (Negative) mg/dL Ur Leukocyte Stacy ase 2+ H (Negative) Urine RBC 5-10 H (0-2) /hpf Urine WBC Too numerous to c nt H (0-5) /hpf Ur Squamous Epith Cells 5-10 H (0-5) Urine Bacteria 3+ H (NONE) Urine Trichomonas 1+ H Influenza Type A A g Negative (Negative) POC Influenza B Ag Negative (Negative) 09/02/19 09/03/19 Range/Units 18:27 00:58 WBC (4.0-10.0) 10^3/ uL RBC (4.1-5.3) 10^6/u L Hgb (11.5-15.3) g/dL Hct (37.0-47.0) % MCV (81-99) fL MCH (28.0-34.0) pg MCHC (30.0-36.0) g/dL RDW (12.1-15.1) % Plt Count (130-400) 10^3/c mm MPV (7.4-10.4) fL Neut % (Auto) % Lymph % (Auto) % [place] % (Auto) % Eos % (Auto) % Baso % (Auto) % Neut # (Auto) (1.8-7.7) 10^3/u L Lymph # (Auto) (0.8-4.8) 10^3/u L [place] # (Auto) (0.2-0.9) 10^3/u L Eos # (Auto) (0.0-0.8) 10^3/u L Baso # (Auto) (0.0-0.1) 10^3/u L Nucleated RBC % (a uto) % Nucleated RBCs # /100WBC Sodium 134 L 137 (136-145) mmol/L Potassium 6.5 H 4.8 (3.5-5.1) mmol/L Chloride 92 L 95 L (98-107) mmol/L Carbon Dioxide 20 L 22 (22-29) mmol/L Anion Gap 28.5 H 24.8 H (5-19) BUN 41 H 44 H (6-20) mg/dL Creatinine 11.2 H* 12.1 H* (0.5-0.9) mg/dL GFR Calculation 3.8 L 3.5 L (90-130) mL/min Glucose 82 81 (74-109) mg/dL Calcium 8.0 L 8.2 L (8.6-10.0) mg/Dl Urine Color (Yellow) Urine Appearance (CLEAR) Urine pH (5-7) Ur Specific Gravit y (1.005-1.030) Urine Protein (Negative) Urine Glucose (UA) (Normal) Urine Ketones (Negative) Urine Occult Blood (Negative) Urine Nitrate (Negative) Urine Bilirubin (NEGATIVE) Prot Sulfosalicyli c Acd Urine Urobilinogen (Negative) mg/dL Ur Leukocyte Stacy ase (Negative) Urine RBC (0-2) /hpf Urine WBC (0-5) /hpf Ur Squamous Epith Cells (0-5) Urine Bacteria (NONE) Urine Trichomonas Influenza Type A A g (Negative) POC Influenza B Ag (Negative) EKG Data^: EKG 1: Attestation: I personally reviewed and interpreted this EKG as follows: EKG Interpretation Date: 09/02/19 EKG interpretation time: 19:15 Interpretation: sinus tach hr [address] or t wave abnormalities qrs 90 qtc 429 Discharge Plan Discharge Patient Disposition: Home, Self-Care Clinical Impression: ESRD (end stage renal disease), Acute dyspnea, Acute hyperkalemia Condition: Stable Prescriptions: No Action metoprolol succinate 25 mg tablet extended release 24 hr 50 mg PO BID PRN (Reason: Blood Pressure) RF: 0 Auryxia 210 mg iron tablet 2,000 mg PO TID RF: 0 clonidine 0.3 mg/24 hr patch weekly See Rx Instructions .ROUTE .COMPLEX RF: 0 nifedipine 30 mg tablet extended release 30 mg PO DAILY Qty: 30 RF: 0 metoprolol succinate 100 mg Tablet Extended Release 24 Hr 100 mg PO BEDTIME RF: 0 minoxidil 2.5 mg Tablet 2.5 mg PO DAILY RF: 0 losartan 100 mg Tablet 100 mg PO DAILY RF: 0 Epclusa 400-100 mg Tablet 1 tab PO DAILY RF: 0 RenaPlex 800 mcg- 12.5 mg Tablet 1 tab PO DAILY RF: 0 Discharge Orders: Discharge Order (Routine); Ordered 09/03/19 Ordered By: Karlee Jha Transfer Out of Facility (Order); Ordered 09/02/19 Ordered By: Karlee Jha Referrals: Carie Man DO [Primary Care Provider] - 1-3 days Discharge Diet: Advance as tolerated Discharge Activity: Resume usual activity Patient Instructions: Hyperkalemia (ED) Coding Level of Care Code ED Party Plan Demonstrator for [facility] Fwd Exam Problem Focused The documentation recorded by the David martinez Bridget Annette, accurately reflects the service I personally performed and the decisions made by Yudelka michael Korby, MD Sep 02, 2019 16:04
--- NOTE | 2019-09-02 16:30 | XR_ITS ---
WS: [id number] CHEST XRAY TECHNIQUE: Portable chest. CLINICAL INFORMATION: dysp adin COMPARISON: August 29, 2019 FINDINGS: Heart: Cardiomegaly. Lungs: Lungs are clear. No consolidation or pleural effusion. Bones: Normal visualized bony structures. Left axillary vascular stent. XR/XR chest 1V portable [id number] IMPRESSION: No acute chest findings
[2019-09-02] MEDS: diphenhydrAMINE 50 mg/mL SDV 1mL IM (18:09)
[2019-09-02] MEDS: metoclopramide 5 mg/mL SDV 2 mL IM (18:11)
[2019-09-02 18:44] LABS: Basophils % 0.4 %; Eosinophils # 0.2 10^3/uL (0.0-0.8); Eosinophils % 2.9 %; Hematocrit 28.1 % (37.0-47.0); Hemoglobin 8.4 g/dL (11.5-15.3); Lymphocytes # 0.9 10^3/uL (0.8-4.8); Lymphocytes % 17.9 %; Mean Corpuscular HGB Conc 29.9 g/dL (30.0-36.0); Mean Corpuscular Hemoglobin 31.1 pg (28.0-34.0); Mean Corpuscular Volume 104.1 fL (81-99); Mean Platelet Volume 12.5 fL (7.4-10.4); Monocytes # 0.5 10^3/uL (0.2-0.9); Monocytes % 8.8 %; Neutrophils # 3.6 10^3/uL (1.8-7.7); Neutrophils % 69.4 %; Nucleated Red Blood Cells % 0 %; Platelet Count 103 10^3/cmm (130-400); Red Cell Distribution Width 13.5 % (12.1-15.1); White Blood Count 5.2 10^3/uL (4.0-10.0)
[2019-09-02 18:54] LABS: Anion Gap 28.5 (5-19); Blood Urea Nitrogen 41 mg/dL (6-20); Carbon Dioxide 20 mmol/L (22-29); Chloride 92 mmol/L (98-107); Glomerular Filtration Rate 3.8 mL/min (90-130); Glucose 82 mg/dL (74-109); Potassium 6.5 mmol/L (3.5-5.1); Sodium 134 mmol/L (136-145)
--- NOTE | 2019-09-02 19:02 | ECG_ITS ---
Measurements Intervals [place] Rate: 105 P: 61 MT: 148 QRS: 104 QRSD: 90 T: 52 QT: 368 QTc: 487 SINUS TACHYCARDIA POSSIBLE LEFT ATRIAL ENLARGEMENT [-0.1mV P WAVE IN V1/V2] RIGHT AXIS DEVIATION [QRS AXIS > 100] Compared to ECG 08/30/2019 01:15:13 Right-axis deviation now present Sinus rhythm no longer present Electronically Signed On 09-03-2019 8:07:35 WAITER by Mukul Cardenas M.D. [email or web address]
[2019-09-02 19:07] LABS: Urine Appearance SL Hazy (CLEAR); Urine Color Yellow (Yellow); pH Urine 9 (5-7)
[2019-09-02 19:08] LABS: Blood Urine 2+ (Negative); Glucose Urine UA 2+ (Normal); Ketones Urine Negative (Negative); Nitrate Urine Negative (Negative); Protein Urine 2+ (Negative)
[2019-09-02 19:09] LABS: Add Urine Culture? Yes; Bacteria Urine 3+; Bilirubin Urine Neg (NEGATIVE); Leukocyte Esterase Urine 2+ (Negative); Sulfosalicylic Acid Urine Positive; Trichomonas Urine 1+; Urobilinogen Urine Norm (Negative); WBC Urine TOO NUMEROUS TO CNT /hpf (0-5)
--- NOTE | 2019-09-02 19:10 | PC.NURSE ---
REPORT RECEIVED FROM AMANDA BLAND AND CARE TRANSFERRED TO AMANDA SHARMA
[2019-09-02 19:12] LABS: Influenza A by IFA Negative (Negative); Influenza B by IFA Negative (Negative)
[2019-09-02] MEDS: insulin regular-human 100 units/1 mL 10 UNIT IVP (21:31)
[2019-09-02] MEDS: metoclopramide 5 mg/mL SDV 2 mL 10 MG IV (21:41)
[2019-09-03] VITALS (7 sets, daily range): BP systolic 130–160; BP diastolic 90–102; PULSE 95–116; RESP 14–16; O2SAT 92–96
[2019-09-03 01:37] LABS: Anion Gap 24.8 (5-19); Blood Urea Nitrogen 44 mg/dL (6-20); Calcium 8.2 mg/Dl (8.6-10.0); Carbon Dioxide 22 mmol/L (22-29); Chloride 95 mmol/L (98-107); Glomerular Filtration Rate 3.5 mL/min (90-130); Glucose 81 mg/dL (74-109); Potassium 4.8 mmol/L (3.5-5.1); Sodium 137 mmol/L (136-145)
== END 2019-09-03 07:26 | disposition home or self-care (01) ==
PROVIDERS: Family Medicine; Emergency Provider Emergency Medicine; Family Provider Family Medicine; PCP Family Medicine
DX: I12.0 Hypertensive chronic kidney disease with stage 5 chronic kidney disease or end stage renal disease (principal); N18.6 End stage renal disease; E87.5 Hyperkalemia; R06.00 Dyspnea, unspecified; Z86.19 Personal history of other infectious and parasitic diseases; F17.210 Nicotine dependence, cigarettes, uncomplicated
CPT/HCPCS: 36415; 71045; 80048; 81001; 85025; 87086; 87804; 93005; 96365; 96372; 96374; 99283; A9270; J0610; J1200; J1815; J2765; J7799

== ENCOUNTER 2019-09-03 22:22 | Observation (INO) | payer MEDICARE, MEDICAID, SELFPAY ==
--- NOTE | 2019-09-03 22:23 | XR_ITS ---
WS: [id number] CHEST XRAY TECHNIQUE: Portable chest. CLINICAL INFORMATION: sob COMPARISON: 020 FINDINGS: Left axillary vascular stent. Heart: Cardiomegaly. Lungs: Diffuse interstitial thickening within both lungs likely due to edema versus interstitial pneu monia. No focal consolidation. Bones: Normal visualized bony structures. XR/XR chest 1V portable [id number] IMPRESSION: 1. Cardiomegaly with diffuse interstitial thickening likely due to edema versu s interstitial pneumonitis. This is progressed from yesterday. 2. No pleural fluid or focal pneumonia.
--- NOTE | 2019-09-03 22:23 | ECG_ITS ---
Measurements Intervals [place] Rate: 101 P: 54 [place]: 137 QRS: 88 QRSD: 82 T: 66 QT: 382 QTc: 497 SINUS TACHYCARDIA POSSIBLE LEFT ATRIAL ENLARGEMENT [-0.1mV P WAVE IN V1/V2] ABNORMAL RHYTHM ECG WARNING: DATA QUALITY MAY AFFECT INTERPRETATION Compared to ECG 09/02/2019 19:15:43 Right-axis deviation no longer present Electronically Signed On 09-04-2019 13:51:33 SUBCONTRACTS MANAGER by Abby Durán M.D. [id number]
--- NOTE | 2019-09-03 22:27 | PC.NURSE ---
STATES SHE WENT TO DIALYSIS TODAY. PATIENT STATES SHE FEELS LIKE SHE CANNOT BREATHE AND THAT SHE IS DYING WITHOUT BEING ON OXYGEN.
[2019-09-03 22:31] VITALS: TEMP 36.7
[2019-09-03 22:32] VITALS: PULSE 103; RESP 19; O2SAT 98
--- NOTE | 2019-09-03 22:34 | ED_ITS ---
Entered by Estela Saldivar, acting as scribe for HPI - SOB/Dyspnea General: Chief Complaint: Shortness of Breath/Dyspnea Stated Complaint: SOB Time Seen by Provider: 09/03/19 22:24 Source: patient Mode of arrival: EMS History of Present Illness: HPI Narrative: 39 y/o female presents to the ED with complaint of SOB and chest pain. Pt was seen here yesterday for similar syptoms. She states she had dialysis today. This evening she had sudden onset of SOB and states she was satting at 89% when EMS arrived. MD elicited complaint: shortness of breath and chest pain Onset (ago): minute(s) Timing: intermittent Severity: mild Relieving factors: nothing Associated symptoms: Reports chest pain; Deny abdominal pain, fever(s), nausea, polyuria or vomiting Review of Systems Const: Denies: fever or chills Eyes: Denies: change in vision ENMT: Denies: throat pain or mouth pain Card: Reports: chest pain Resp: Reports: shortness of breath GI: Denies: abdominal pain, nausea, vomiting or diarrhea : Denies: difficulty urinating Musc: Denies: back pain or joint pain Skin/Breast: Denies: rash Neuro: Denies: headache or behavioral changes Psych: Denies: sleeping more Endo: Denies: excessive urination Kevan/Lymph: Denies: easy bruising All/Imm: Denies: hives PFSH ED PFSH: Statuses (acute, chronic, etc) shown below reflect problem list status as previously entered and may not be historically accurate Medical History (Updated 09/04/19 @ 00:58 by Janet Gutierrez MD) Anemia (Chronic) 2nd to CKD Chronic hepatitis C (Acute) sees Conte Depression (Acute) ESRD (end stage renal disease) on dialysis (Acute) MWF Hemodialysis access, AV graft (Acute) Hypertension (Acute) Can be difficult to control Polycystic kidney disease (Acute) Polysubstance abuse (Acute) meth Renal osteodystrophy (Acute) Staphylococcus aureus bacteremia (Acute) MSSA bacteremia 08/14-09/15 Surgical History (Updated 09/04/19 @ 00:48 by Janet Gutierrez MD) S/P dialysis catheter insertion (Acute Unknown) S/P tooth extraction (Acute) Family History Other Diabetes Hypertension Polycystic kidney disease Social History Smoking and tobacco status: current every day smoker Alcohol intake: never Desire information about substance/drug rehabilitation?: No Counseling given: Yes Caregiver/support person: Yes Household members: family Marital status: Single Physical Exam Const: COMMON NORMALS: no apparent distress, oriented x3 and healthy appearing HENMT: COMMON NORMALS: normocephalic and external nose normal HEAD & SCALP: normocephalic NOSE: external nose normal Eye: COMMON NORMALS: PERRL PUPIL: Yes PERRL Neck/C-Spine: COMMON NORMALS: full ROM and no lymphadenopathy Chest: COMMONS NORMALS: inspection of chest normal Resp: COMMON NORMALS: normal respiratory effort and no use of accessory muscles OTHER: rales bilaterall Cardio: COMMON NORMALS: regular rate and regular rhythm RATE: regular rate RHYTHM: regular rhythm GI: COMMON NORMALS: normal to inspection, nondistended, normoactive bowel sounds, soft to palpation, non-tender and no masses PALPATION: Yes soft Back/Pelvis: THORACIC SPINE/UPPER BACK: Yes normal to inspection Extremity: COMMON NORMALS: normal to inspection, full ROM and normal capillary refill Neuro: COMMON NORMALS: oriented x3 Psych: COMMON NORMALS: mental status grossly normal and cooperative Skin: COMMON NORMALS: no rashes or lesions noted GENERAL SKIN EXAM: no rashes or lesions noted Course Vital Signs: Vital signs: Vital Signs Temperature 98.0 F 09/03/19 22:36 Pulse Rate 106 H 09/04/19 01:05 Respiratory Rate 16 09/04/19 01:05 Blood Pressure 143/92 09/04/19 01:05 Pulse Oximetry 98 09/04/19 01:05 MDM - SOB/Dyspnea MDM Narrative: Medical decision making narrative: Patient presents here with shortness of breath and has a long history of end-stage renal disease. Patient is requiring oxygen here and does have pulmonary edema on x-ray. Patient is not hyperkalemic and has no EKG changes. I spoke to hospitalist and will admit to the cardiac stepdown. Lab Data: Labs: Lab Results 09/03/19 09/03/19 09/04/19 Range/Units 22:50 22:50 00:29 WBC 5.3 (4.0-10.0) 10^3/ uL RBC 2.41 L (4.1-5.3) 10^6/u L Hgb 7.2 L (11.5-15.3) g/dL Hct 23.6 L (37.0-47.0) % MCV 97.9 (81-99) fL MCH 29.9 (28.0-34.0) pg MCHC 30.5 (30.0-36.0) g/dL RDW 13.4 (12.1-15.1) % Plt Count 95 L (130-400) 10^3/c mm MPV 12.6 H (7.4-10.4) fL Neut % (Auto) 71.5 % Lymph % (Auto) 16.4 % Lynn % (Auto) 9.2 % Eos % (Auto) 2.3 % Baso % (Auto) 0.4 % Neut # (Auto) 3.8 (1.8-7.7) 10^3/u L Lymph # (Auto) 0.9 (0.8-4.8) 10^3/u L Lynn # (Auto) 0.5 (0.2-0.9) 10^3/u L Eos # (Auto) 0.1 (0.0-0.8) 10^3/u L Baso # (Auto) 0.0 (0.0-0.1) 10^3/u L Nucleated RBC % (a uto) 0 % Nucleated RBCs # 0.0 /100WBC Sodium 135 L (136-145) mmol/L Potassium 6.1 H (3.5-5.1) mmol/L Chloride 93 L (98-107) mmol/L Carbon Dioxide 19 L (22-29) mmol/L Anion Gap 29.1 H (5-19) BUN 51 H (6-20) mg/dL Creatinine 13.4 H* (0.5-0.9) mg/dL GFR Calculation 3.1 L (90-130) mL/min Glucose 96 (74-109) mg/dL Calcium 7.6 L (8.6-10.0) mg/Dl Urine Color Yellow (Yellow) Urine Appearance Cloudy (CLEAR) Urine pH 8 H (5-7) Ur Specific Gravit y 1.015 (1.005-1.030) Urine Protein 1+ H (Negative) Urine Glucose (UA) 4+ H (Normal) Urine Ketones Negative (Negative) Urine Occult Blood 2+ H (Negative) Urine Nitrate Negative (Negative) Urine Bilirubin Neg (NEGATIVE) Prot Sulfosalicyli c Acd Positive Urine Urobilinogen Norm (Negative) mg/dL Ur Leukocyte Stacy ase 2+ H (Negative) Urine RBC 10-15 H (0-2) /hpf Urine WBC 55-80 H (0-5) /hpf Ur Squamous Epith Cells 10-15 H (0-5) Urine Bacteria 1+ H (NONE) Imaging Data^: CXR: Attestation: I personally reviewed and interpreted this imaging study as follows: My impression: pulmonary edema EKG Data^: EKG 1: Attestation: I personally reviewed and interpreted this EKG as follows: EKG Interpretation Date: 09/03/19 EKG interpretation time: 22:32 Interpretation: sinus tach hr [address] or t wave abnormalities qrs 82 qtc 440 EKG 2: Attestation: I personally reviewed and interpreted this EKG as follows: EKG Interpretation Date: 09/04/19 EKG interpretation time: 00:21 Interpretation: Sinus tachycardia heart rate [address] or T wave abnormalities. Discharge Plan Discharge Admit Provider: Janet Gutierrez Coding Level of Care Code ED Rough Rounder for Chg Fwd Exam Problem Focused The documentation recorded by the Yariel martinez Ashley, accurately reflects the service I personally performed and the decisions made by me, Karlee Jha MD Sep 03, 2019 22:22
[2019-09-03 22:36] VITALS: BP 142/97; PULSE 111; RESP 18; TEMP 36.7; O2SAT 91; BMI 14.8
[2019-09-03] MEDS: LORazepam 1 mg Tablet PO (22:51)
[2019-09-03 22:52] VITALS: BP 155/101; PULSE 105; PULSE 108; RESP 18; O2SAT 94
--- NOTE | 2019-09-03 22:57 | PC.NURSE ---
PATIENT STATES THEY HAVE HEP C AND ARE IN TREATMENT FOR IT
[2019-09-03 22:59] LABS: Basophils % 0.4 %; Eosinophils # 0.1 10^3/uL (0.0-0.8); Eosinophils % 2.3 %; Hematocrit 23.6 % (37.0-47.0); Hemoglobin 7.2 g/dL (11.5-15.3); Lymphocytes # 0.9 10^3/uL (0.8-4.8); Lymphocytes % 16.4 %; Mean Corpuscular HGB Conc 30.5 g/dL (30.0-36.0); Mean Corpuscular Hemoglobin 29.9 pg (28.0-34.0); Mean Corpuscular Volume 97.9 fL (81-99); Mean Platelet Volume 12.6 fL (7.4-10.4); Monocytes # 0.5 10^3/uL (0.2-0.9); Monocytes % 9.2 %; Neutrophils # 3.8 10^3/uL (1.8-7.7); Neutrophils % 71.5 %; Nucleated Red Blood Cells % 0 %; Platelet Count 95 10^3/cmm (130-400); Red Blood Count 2.41 10^6/uL (4.1-5.3); Red Cell Distribution Width 13.4 % (12.1-15.1); White Blood Count 5.3 10^3/uL (4.0-10.0)
[2019-09-04] VITALS (33 sets, daily range): BP systolic 85–158; BP diastolic 60–113; PULSE 81–111; RESP 14–29; TEMP 36.2–37.1; O2SAT 88–99; BMI 17.4
[2019-09-04 00:15] LABS: Anion Gap 29.1 (5-19); Blood Urea Nitrogen 51 mg/dL (6-20); Calcium 7.6 mg/Dl (8.6-10.0); Carbon Dioxide 19 mmol/L (22-29); Chloride 93 mmol/L (98-107); Glomerular Filtration Rate 3.1 mL/min (90-130); Glucose 96 mg/dL (74-109); Potassium 6.1 mmol/L (3.5-5.1); Sodium 135 mmol/L (136-145)
[2019-09-04] MEDS: ipratropium-albuterol 3 mL Neb INHALATION (00:33)
--- NOTE | 2019-09-04 00:52 | PM.HP ---
Providers/Chief Complaint Admitting Physician: Janet Gutierrez Primary Care Provider: Carie Man Chief Complaint: SOB History of Present Illness Ruby Cortés is a 39 year old female with a history of polycystic kidney disease on hemodialysis Wednesdays and Fridays. She reports that she had dialysis yesterday but began to get short of breath this evening and came into the emergency room. She was also complaining of chest pain. Oxygen saturations were 89% when EMS arrived. She was put on some oxygen and brought in. On arrival here attempts to wean oxygen were unsuccessful. Chest x-ray showed bilateral pulmonary edema. Potassium was 6.1. Patient received a breathing treatment in the emergency room as well as some Ativan due to distress associated with respiratory difficulties. At the time of my evaluation she is quite sleepy and I am not able to get much in the way of any kind of history from her. Review of Systems General: Reports: ROS unobtainable due to mental status (Sedated from medications administered in the emergency room) Narrative: ED reported no nausea, vomiting, diarrhea, fevers. Reportedly does not make urine. Medications/Allergies Allergies Allergy/AdvReac Type Severity Reaction Status Date / Time clindamycin Allergy Unknown Unknown Verified 09/02/19 16:17 codeine Allergy Unknown Unknown Verified 09/02/19 16:17 erythromycin base Allergy Unknown Unknown Verified 09/02/19 16:17 ketorolac [From Toradol] Allergy Unknown Unknown Verified 09/02/19 16:17 levofloxacin [From Levaquin] Allergy Unknown Unknown Verified 09/02/19 16:17 ondansetron [From Zofran] Allergy Unknown Unknown Verified 09/02/19 16:17 Penicillins Allergy Unknown Unknown Verified 09/02/19 16:17 tramadol [From Ultram] Allergy Unknown Unknown Verified 09/02/19 16:17 Additional Medication Information Additional Medication Information: Reviewed recent discharge medications but I am not able to confirm what she is or is not taking with her currently. PFSH Acute PFSH: Statuses (acute, chronic, etc) shown below reflect problem list status as previously entered and may not be historically accurate Medical History (Updated 09/04/19 @ 02:06 by Janet Gutierrez MD) Anemia (Chronic) Chronic hepatitis C (Acute) sees Dg Depression (Acute) ESRD (end stage renal disease) on dialysis (Acute) MWF Hemodialysis access, AV graft (Acute) Left upper extremity Hypertension (Acute) Can be difficult to control Polycystic kidney disease (Acute) Polysubstance abuse (Acute) Renal osteodystrophy (Acute) Staphylococcus aureus bacteremia (Acute) MSSA bacteremia 08/14-09/15 Thrombocytopenia (Acute) Surgical History S/P dialysis catheter insertion (Acute Unknown) S/P tooth extraction (Acute) Family History Other Diabetes Hypertension Polycystic kidney disease Social History Smoking and tobacco status: current every day smoker Alcohol intake: never Desire information about substance/drug rehabilitation?: No Counseling given: Yes Caregiver/support person: Yes Household members: family Marital status: Single Vitals/I&O/Wt Last Vital Signs Temp 98.0 F 09/03/19 22:36 Pulse 106 H 09/04/19 00:36 Resp 21 H 09/04/19 00:36 BP 158/113 09/04/19 00:00 Pulse Ox 91 09/04/19 00:36 Weight last 48 hrs Weight 38.102 kg Physical Exam Const: EXAM LIMITATIONS: other limitations (Sedated from medications) NUTRITIONAL APPEARANCE: thin HENMT: COMMON NORMALS: normocephalic, head/scalp atraumatic and moist oral mucous membranes TEETH & GINGIVA: Yes fair dentition Eye: COMMON NORMALS: PERRL (Not pinpoint), EOMs intact bilaterally and no scleral icterus Neck/C-Spine: COMMON NORMALS: supple Resp: COMMON NORMALS: clear to auscultation bilaterally AUSCULTATION: diminished lung sounds bilateral in the lower lung neal Cardio: COMMON NORMALS: no JVD and no murmurs RATE: tachycardic RHYTHM: regular rhythm OTHER: Positive thrill to left upper extremity AV fistula GI: COMMON NORMALS: normal to inspection, nondistended, normoactive bowel sounds and soft to palpation : COMMON NORMALS: Yes external appearance normal Extremity: COMMON NORMALS: normal to inspection and no pedal edema GENERAL: Yes other findings (Muscle wasting) Neuro: OTHER: Not able to adequately assess at present but no gross abnormalities Skin: NARRATIVE SKIN EXAM: Multiple sores in different stages of healing noted. A few tattoos noted. Data Labs: Other Labs: Short CBC 09/03/19 Range/Units 22:50 WBC 5.3 (4.0-10.0) 10^3/ uL Hgb 7.2 L (11.5-15.3) g/dL Hct 23.6 L (37.0-47.0) % Plt Count 95 L (130-400) 10^3/c mm BMP 09/03/19 22:50 Sodium 135 L Potassium 6.1 H Chloride 93 L Carbon Dioxide 19 L BUN 51 H Creatinine 13.4 H* Glucose 96 Calcium 7.6 L Urine 09/04/19 Range/Units 00:29 Urine Color Yellow (Yellow) Urine Appearance Cloudy (CLEAR) Urine pH 8 H (5-7) Ur Specific Gravit y 1.015 (1.005-1.030) Urine Protein 1+ H (Negative) Urine Glucose (UA) 4+ H (Normal) LE +, WBC + but 10-15 epithelial cells >> contaminated A&P Assessment and plan (1) Acute dyspnea: Due to volume overload/pulmonary edema. Currently requiring oxygen therapy Status: Acute Code(s): R06.00 - Dyspnea, unspecified (2) Acute hyperkalemia: No acute EKG changes associated with this currently Status: Acute Code(s): E87.5 - Hyperkalemia (3) ESRD (end stage renal disease) on dialysis: Reported compliance with dialysis yesterday to the ED Status: Acute Code(s): N18.6 - End stage renal disease; Z99.2 - Dependence on renal dialysis (4) Anemia: Suspect patient may have some dilutional effect now given edema. Last iron was 34 with percent saturation of around 17% in June. Status: Chronic Qualifiers: Anemia type: due to chronic kidney disease Chronic kidney disease stage: on chronic dialysis Qualified Code(s): N18.6 - End stage renal disease; D63.1 - Anemia in chronic kidney disease; Z99.2 - Dependence on renal dialysis Code(s): D64.9 - Anemia, unspecified Additional A&P Information Additional A&P Information: Additional diagnoses: Currently sedated from Ativan received in the emergency room to help when she was having significant difficulty breathing Chronic diagnosis as noted above Plan: Observation admission Nephrology consultation later this morning, anticipate she will need dialysis We will give 1 dose of IV Lasix Wean oxygen as able Try to avoid any further Ativan Need to fully clarify her medications when she is awake and alert but for now I am going to continue at least some beta-blockade, minoxidil, nifedipine and ensure she has clonidine patch on Will need outpatient follow-up for her anemia as per nephrology. No evidence of gross bleeding. Reviewing old records it looks like she has had a steady trend downward since April. Supportive care otherwise IPCs for DVT prophylaxis; no pharm due to low plts Full code Attestations Medical Necessity Statement*: Anticipate stay less than 2 midnights in patient with shortness of breath and volume overload who is a dialysis patient. Currently requiring oxygen. Coding Level of Care Code Acute Public Transportation Inspector for Rosalio Kaur Diagnoses Acute dyspnea R06.00 Acute hyperkalemia E87.5 ESRD (end stage renal disease) on dialysis N18.6; Z99.2 Anemia N18.6; D63.1; Z99.2 Anemia type: due to chronic kidney disease Chronic kidney disease stage: on chronic dialysis
[2019-09-04 00:54] LABS: Glucose Urine UA 4+ (Normal); Protein Urine 1+ (Negative); Specific Gravity, Urine 1.015 (1.005-1.030); Urine Appearance Cloudy (CLEAR); Urine Color Yellow (Yellow); pH Urine 8 (5-7)
[2019-09-04 00:55] LABS: Add Urine Microscopic? YES; Bilirubin Urine Neg (NEGATIVE); Blood Urine 2+ (Negative); Ketones Urine Negative (Negative); Leukocyte Esterase Urine 2+ (Negative); Nitrate Urine Negative (Negative); Sulfosalicylic Acid Urine Positive; Urobilinogen Urine Norm (Negative)
[2019-09-04 00:57] LABS: WBC Urine 55-80 /hpf (0-5)
[2019-09-04 00:58] LABS: Add Urine Culture? No; Bacteria Urine 1+
[2019-09-04 01:51] LABS: NT Pro B Type Natriuretic Pept 35000 pg/mL (0-125)
[2019-09-04] MEDS: FUROsemide 10 mg/mL SDV 10mL 80 MG IVP (02:54)
[2019-09-04 05:25] LABS: Basophils % 0.3 %; Eosinophils # 0.2 10^3/uL (0.0-0.8); Hematocrit 26.1 % (37.0-47.0); Hemoglobin 8.1 g/dL (11.5-15.3); Lymphocytes # 1.5 10^3/uL (0.8-4.8); Lymphocytes % 23.5 %; Mean Corpuscular Hemoglobin 31.2 pg (28.0-34.0); Mean Corpuscular Volume 100.4 fL (81-99); Mean Platelet Volume 12.9 fL (7.4-10.4); Monocytes # 0.6 10^3/uL (0.2-0.9); Monocytes % 9.4 %; Neutrophils % 63.5 %; Nucleated Red Blood Cells % 0 %; Platelet Count 113 10^3/cmm (130-400); Red Cell Distribution Width 13.6 % (12.1-15.1); White Blood Count 6.3 10^3/uL (4.0-10.0)
[2019-09-04 05:39] LABS: Anion Gap 27.3 (5-19); Blood Urea Nitrogen 53 mg/dL (6-20); Calcium 7.9 mg/Dl (8.6-10.0); Carbon Dioxide 21 mmol/L (22-29); Chloride 94 mmol/L (98-107); Glomerular Filtration Rate 3.1 mL/min (90-130); Glucose 95 mg/dL (74-109); Iron 65 ug/dL (37-145); Magnesium 2.4 mg/dL (1.7-2.3); Percent Saturation 40.3 % (20-50); Phosphorus 10.2 mg/dL (2.5-4.5); Potassium 6.3 mmol/L (3.5-5.1); Sodium 136 mmol/L (136-145); Total Iron Binding Capacity 161 mg/dL; Unsaturated Iron Binding 96 ug/dL (112-347)
--- NOTE | 2019-09-04 06:13 | PC.NURSE ---
Patient pulled all telemetry leads off. Patient refusing to wear telemetry at this time.
--- NOTE | 2019-09-04 06:59 | ECG_ITS ---
Measurements Intervals [place] Rate: 106 P: 68 AL: 153 QRS: 99 QRSD: 85 T: 68 QT: 358 QTc: 477 SINUS TACHYCARDIA POSSIBLE LEFT ATRIAL ENLARGEMENT [-0.1mV P WAVE IN V1/V2] BORDERLINE RIGHT AXIS DEVIATION [QRS AXIS > 90] ABNORMAL RHYTHM ECG Compared to ECG 09/02/2019 19:15:43 No significant changes Electronically Signed On 09-04-2019 14:00:15 [employer] ADMINISTRATOR by Abby Durán M.D. [email or web address]
[2019-09-04] MEDS: promethazine 25 mg Tablet PO ×3 (07:12→21:44)
--- NOTE | 2019-09-04 08:18 | P.PN_ITS ---
Subjective Subjective: Interval history: Patient known to me from previous admission, chart reviewed. UA indicative of infection and patient has hx of recurrent UTIs. Given altered mental status, will start on empric Ceftriaxone. Patient seen and examined, resting in bed, easily arousable, significant other at bedside, has already been seen by Dr. Pelayo and has declined HD today as it makes me sicker than a dog. She states that her last HD session was yesterday and she admits to missing session about a week ago due to the holidays when she was out of town. Mental status is at baseline. Will be getting HD tomorrow, likely longer than usual session. She declined to take kayexelate this AM. Medications: Reviewed: Yes Medication Review Details: Active Medications Generic Name Dose Route Start Last Admin Trade Name Freq PRN Reason Stop Dose Admin Acetaminophen 650 mg 09/04/19 02:06 Tylenol PO Q6H PRN Mild/Mod Pain Or Temp >/= 101 Clonidine HCl 1 patch 09/04/19 09:00 Catapres-Tts 3 TRANSDERMA Q7D [facility] Ceftriaxone Sodium 1,000 mg/ 50 mls @ 100 mls/ hr 09/04/19 08:30 Sodium Chloride IV Q24H [facility] Protocol Metoprolol Succina te 50 mg 09/04/19 09:00 Toprol Xl PO BID [facility] Minoxidil 2.5 mg 09/04/19 09:00 Minoxidil PO DAILY [facility] Nifedipine 30 mg 09/04/19 09:00 Procardia Xl PO DAILY [facility] Non-Formulary Medi cation 15 gram 09/04/19 08:16 Kayexylate PO 09/04/19 08:17 ONCE STA Promethazine HCl 25 mg 09/04/19 03:23 09/04/19 07:12 Phenergan PO 25 mg Q6H PRN Administration NAUSEA clindamycin Allergy (Unknown, Verified 09/02/19 16:17) Unknown codeine Allergy (Unknown, Verified 09/02/19 16:17) Unknown erythromycin base Allergy (Unknown, Verified 09/02/19 16:17) Unknown ketorolac [From Toradol] Allergy (Unknown, Verified 09/02/19 16:17) Unknown levofloxacin [From Levaquin] Allergy (Unknown, Verified 09/02/19 16:17) Unknown ondansetron [From Zofran] Allergy (Unknown, Verified 09/02/19 16:17) Unknown Penicillins Allergy (Unknown, Verified 09/02/19 16:17) Unknown tramadol [From Ultram] Allergy (Unknown, Verified 09/02/19 16:17) Unknown Vitals/I&O/Wt Last Vital Signs Temp 98.6 F 09/04/19 07:29 Pulse 97 09/04/19 07:29 Resp 21 H 09/04/19 07:29 BP 128/87 09/04/19 07:29 Pulse Ox 91 09/04/19 07:29 Weight last 48 hrs Weight 44.633 kg Weight 44.588 kg Weight 38.102 kg Physical Exam Const: COMMON NORMALS: no apparent distress and oriented x3 GENERAL APPEARANCE: cooperative and comfortable NUTRITIONAL APPEARANCE: cachectic ORIENTATION/CONSCIOUSNESS: Yes awake HENMT: COMMON NORMALS: normocephalic, head/scalp atraumatic, hearing grossly normal bilaterally and moist oral mucous membranes HEAD & SCALP: normocephalic and atraumatic Eye: COMMON NORMALS: PERRL, EOMs intact bilaterally and conjunctivae normal CONJUNCTIVA: Yes conjunctivae normal PUPIL: Yes PERRL Neck/C-Spine: COMMON NORMALS: full ROM GENERAL: Yes normal visual inspection and Yes trachea midline Resp: COMMON NORMALS: normal respiratory effort, no retractions, no use of accessory muscles and clear to auscultation bilaterally EFFORT & INSPECTION: Yes able to speak in complete sentences, Yes symmetric chest movement and No tachypneic AUSCULTATION: clear to auscultation bilaterally Cardio: COMMON NORMALS: regular rate, regular rhythm, S1 normal heart sound, S2 normal heart sound and no murmurs RATE: regular rate RHYTHM: regular rhythm HEART SOUNDS: S1 normal and S2 normal GI: COMMON NORMALS: normal to inspection, nondistended, normoactive bowel sounds, soft to palpation and non-tender PALPATION: Yes soft Extremity: COMMON NORMALS: normal to inspection, full ROM and no clubbing, cyanosis or edema; negative for no pedal edema NARRATIVE EXTREMITY EXAM: -patient has AV fistula access GENERAL: Yes AV fistula (on L; palpable thrum, +bruit) Neuro: COMMON NORMALS: oriented x3, moves all extremities, no focal motor deficits, no sensory deficits noted and gait normal Psych: COMMON NORMALS: mental status grossly normal, thought process normal, cooperative, affect normal and speech normal SPEECH: Yes normal speech THOUGHT PROCESS: normal thought process Skin: COMMON NORMALS: no rashes or lesions noted, no jaundice, no petechiae and no mottling GENERAL SKIN EXAM: no rashes or lesions noted A&P Assessment and plan (1) ESRD (end stage renal disease) on dialysis: -patient has hx of ESRD secondary to PCKD, is dialysis-dependent (HD on MWF); access is AV fistula -has hx of non-compliance with dialysis sessions -Nephrology consulted as will likely need HD due to noted hyperkalemia, evidence of fluid overload on imaging, dyspnea, higher than baseline oxygen requirement. Patient declined HD today, will be scheduled for tomorrow. -continue to monitor renal function and electrolytes -avoid nephrotoxins and renally dose meds -renal diet as tolerated Status: Acute Code(s): N18.6 - End stage renal disease; Z99.2 - Dependence on renal dialysis (2) Acute hyperkalemia: -noted K this AM 6.3 -telemetry monitoring -no noted ECG changes; received kayexelate as well as Neb treatment in ED Status: Acute Code(s): E87.5 - Hyperkalemia (3) Acute dyspnea: -likely secondary to fluid overload as evidenced by imaging findings, BNP- 35,000 -received 80 mg dose of IV Lasix in ED -seems to be anuric at baseline -continue to monitor respiratory status -supplemental oxygen as needed, not oxygen dependent at baseline -will likely need HD Status: Acute Code(s): R06.00 - Dyspnea, unspecified (4) Hypertension: -had hypertensive urgency in ED; BP now improved -continue to monitor vital signs Status: Acute Qualifiers: Hypertension type: essential hypertension Qualified Code(s): I10 - Essential (primary) hypertension Code(s): I10 - Essential (primary) hypertension Additional A&P Information Additional A&P Information: -Underweight: BMI-17 kg/m2 -Acute metabolic encephalopathy: noted increased anion gap metabolic acidosis, abnormal UA with hx of recurrent UTIs. Will start on empiric Ceftriaxone, continue to monitor mental status, fall precautions, has multiple prior urine cx which were contaminated. -Chronic normocytic anemia; baseline Hg is around 9; iron panel noted; Hg slightly below baseline -Chronic smoker; hx of substance abuse (methamphetamines) -Chronic hepatitis C -Chronic thrombocytopenia; baseline platelet count 80-120 -DVT ppx with SCDs, no AC due to anemia and bleeding risk -Dispo: home -Code status: FULL code Attestations Medical Necessity Statement*: Patient requires hospitalization for continued management of acute dyspnea, hyperkalemia, pending HD. Time Spent in Patient Care: 16 - 35 minutes Coding Level of Care Code Acute Shop Firer/Fireman for Chg Fwd Exam Problem Focused Diagnoses ESRD (end stage renal disease) on dialysis N18.6; Z99.2 Acute hyperkalemia E87.5 Acute dyspnea R06.00 Hypertension I10 Hypertension type: essential hypertension
--- NOTE | 2019-09-04 09:30 | PC.NURSE ---
patient refusing to take medications to lower potassium levels at this time despite expressing verbal understanding of purpose for medications patient educated and continue to refuse stating it makes me sick.
[2019-09-04] MEDS: metoprolol succinate ER (24 HR) 50 mg Tablet PO ×2 (09:34→18:26)
[2019-09-04] MEDS: NIFEdipine ER (24 hr) 30 mg Tablet PO (09:34)
[2019-09-04] MEDS: cefTRIAXone 1,000 MG in sodium chloride 0.9% (plus) 50 ML 100 MG IV (09:35)
[2019-09-04] MEDS: insulin regular-human 10 UNIT in SYRINGE 1 EACH IVP (11:27)
[2019-09-04] MEDS: dextrose 50% syringe 50 mL IVP (11:27)
[2019-09-04] MEDS: calcium gluconate 0.1 gm/mL 10% SDV 10mL 1 GM IVP (11:28)
--- NOTE | 2019-09-04 13:00 | PC.NURSE ---
reproached patient about taking some iv medications to help with potassium levels patient is agreeable and tolerated well could only get patient patient to wear rn cardiac cath for a couple hours.
[2019-09-04] MEDS: cloNIDine 0.3 mg/24 hr Patch 1 PATCH TRANSDERMA (13:16)
--- NOTE | 2019-09-04 13:45 | P.CONIM_ITS ---
Providers/Reason For Consult Consulting Physican/Specialty*: Danyelle Pelayo DO, telenephrology Reason for Consult*: ESRD Attending Physician: Allyson Mak MD Primary Care Provider: Carie Man History of Present Illness History of Present Illness Ruby Cortés is a 39 year old female who reports having dialysis yesterday. At home after she became short of breath and called 911. HD sessions are only 2.5 hours. Review of Systems General: Reports: other (weakness) Card: Denies: chest pain Resp: Reports: shortness of breath Meds/Allergies Home Medications and Allergies Home Medications Medication Instructions Recorded Confirmed Type metoprolol succinate 25 mg 50 mg PO BID PRN tab 08/21/19 09/03/19 History tablet,extended release 24 hr Auryxia 2,000 mg PO TID 08/29/19 09/03/19 History clonidine 0.3 mg TRANSDERMAL Q7D 08/29/19 09/04/19 History losartan 100 mg PO DAILY 09/02/19 09/03/19 History metoprolol succinate 100 mg PO BEDTIME 09/02/19 09/03/19 History minoxidil 2.5 mg PO DAILY 09/02/19 09/03/19 History sofosbuvir-velpatasvir [Epclusa] 1 tab PO DAILY 09/02/19 09/03/19 History vit B drkwfmz-H-curbl ac-zinc 1 tab PO DAILY 09/02/19 09/02/19 History [RenaPlex] Allergies Allergy/AdvReac Type Severity Reaction Status Date / Time clindamycin Allergy Unknown Unknown Verified 09/02/19 16:17 codeine Allergy Unknown Unknown Verified 09/02/19 16:17 erythromycin base Allergy Unknown Unknown Verified 09/02/19 16:17 ketorolac [From Toradol] Allergy Unknown Unknown Verified 09/02/19 16:17 levofloxacin [From Levaquin] Allergy Unknown Unknown Verified 09/02/19 16:17 ondansetron [From Zofran] Allergy Unknown Unknown Verified 09/02/19 16:17 Penicillins Allergy Unknown Unknown Verified 09/02/19 16:17 tramadol [From Ultram] Allergy Unknown Unknown Verified 09/02/19 16:17 Current Medications Current Medications Generic Name Dose Route Start Last Admin Trade Name Freq PRN Reason Stop Dose Admin Clonidine HCl 1 patch 09/04/19 09:00 09/04/19 13:16 Catapres-Tts 3 TRANSDERMA 1 patch Q7D LANDY Administration Ceftriaxone Sodium 1,000 mg/ 50 mls @ 100 mls/hr 09/04/19 08:30 09/04/19 10:07 Sodium Chloride IV Infused Q24H LANDY Infusion Protocol Metoprolol Succinate 50 mg 09/04/19 09:00 09/04/19 09:34 Toprol Xl PO 50 mg BID LANDY Administration Nifedipine 30 mg 09/04/19 09:00 09/04/19 09:34 Procardia Xl PO 30 mg DAILY LANDY Administration Promethazine HCl 25 mg 09/04/19 03:23 09/04/19 07:12 Phenergan PO 25 mg Q6H PRN Administration NAUSEA PFSH Acute PFSH: Statuses (acute, chronic, etc) shown below reflect problem list status as previously entered and may not be historically accurate Medical History Anemia (Chronic) Chronic hepatitis C (Acute) sees Dg Depression (Acute) ESRD (end stage renal disease) on dialysis (Acute) MWF Hemodialysis access, AV graft (Acute) Left upper extremity Hypertension (Acute) Can be difficult to control Polycystic kidney disease (Acute) Polysubstance abuse (Acute) Renal osteodystrophy (Acute) Staphylococcus aureus bacteremia (Acute) MSSA bacteremia 08/14-09/15 Thrombocytopenia (Acute) Surgical History S/P dialysis catheter insertion (Acute Unknown) S/P tooth extraction (Acute) Family History Other Diabetes Hypertension Polycystic kidney disease Social History Smoking and tobacco status: current every day smoker Alcohol intake: never Desire information about substance/drug rehabilitation?: No Counseling given: Yes Caregiver/support person: Yes Household members: family Marital status: Single Vitals/I&O/Wt Last Vital Signs Temp 97.8 F 09/04/19 11:51 Pulse 97 09/04/19 11:51 Resp 17 09/04/19 11:51 BP 118/84 09/04/19 13:16 Pulse Ox 97 09/04/19 11:51 09/03/19 09/04/19 09/04/19 22:59 06:59 14:59 Intake Total 410.1 / 410.1 Balance 410.1 / 410.1 Weight last 48 hrs Weight 44.633 kg Weight 44.588 kg Weight 38.102 kg Physical Exam Const: COMMON NORMALS: no apparent distress GENERAL APPEARANCE: anxious Resp: COMMON NORMALS: normal respiratory effort and clear to auscultation bilaterally AUSCULTATION: clear to auscultation bilaterally Cardio: COMMON NORMALS: regular rate RATE: regular rate OTHER: LUE AVG + bruit No edema A&P Additional A&P Information Additional A&P Information: 1. ESRD on hemodialysis MWF. 2. Hyperkalemia 3. Anemia 4. Dyspnea I spoke with Ruby about the need for dialysis today to treat hyperkalemia and remove fluid. She refused, states she does not tolerate dialysis two days in a row. Agreed to take kayexylate. Plan for dialysis tomorrow. The length of her outpatient dialysis treatments should be increased. Coding Level of Care Code Acute Engineer Rf Deployment for Rosalio Kaur
[2019-09-04 14:46] LABS: Blood Urea Nitrogen 57 mg/dL (6-20); Carbon Dioxide 20 mmol/L (22-29); Chloride 94 mmol/L (98-107); Glomerular Filtration Rate 2.9 mL/min (90-130); Glucose 125 mg/dL (74-109); Sodium 136 mmol/L (136-145)
--- NOTE | 2019-09-04 15:45 | PC.CHAP ---
Pastoral Care Encounter/Spiritual Assessment Type of Contact [] Declined santa's helper visit [] Patient/Family/Request visit [] Outpatient visit [] Follow-up visit [] Physician referral [] Code/Alert [x] Routine visit [] Staff referral [] Actively dying [] Patient sleeping [] Family support [] [] Out of room [] Palliative care [] [] Receiving care in room [] Pre-surgical visit [] Trauma [] Long length of stay [] ICU visit [] Other: Relational/Emotional Strength [] Patient feels connected with others/family/visitors/staff [] Distress [] Loneliness/isolation [] Abandonment Spirituality of Patient [x] Person of Trupti [] Attends Christianity of their Trupti [] Believes in Prayer [] Reads Bible or Taoism materials [] There are Spiritual issues to be addressed Dethistler Operator Interventions [x] Prayer [x] Active listening [x] Non-anxious presence [x] Spiritual/emotional support [] Crisis/trauma care [x] Spiritual counseling [] Bereavement support [] Provided bereavement packet [] Provided Bible/devotional materials [] Provided toy/stuffed animal, coloring book to patient or family member [x] Completed spiritual assessment [] Provided Communion [] Anointing/Russell [] Salvation [] Other: Impact on Illness or Injury [] Angry [] Fearful [] Anxious [] Often cries [] Exhaustion [] Unable to work [] Unable to attend jain [] Unable to walk/stand [] Unable to read [] Unable to drive [] Unable to eat/drink [] Unable to sleep [] Unable to be with family [] Other: Summary Patient not going to yarsanism at this time. Time spent with patient
--- NOTE | 2019-09-04 19:30 | PC.NURSE ---
This nurse answered patient's call light. Patient requesting something for nausea and pain. States, The Tylenol doesn't work...I've already tried that. This nurse explained to patient that she couldn't have the Phenergan until 2200. Voices understanding. Extra blanket given per patient request. Will monitor.
[2019-09-04] MEDS: acetaminophen 325 mg Tablet 650 MG PO (20:22)
--- NOTE | 2019-09-04 20:29 | PC.NURSE ---
Patient agreed to take Tylenol after being informed that the physician environmental protection geologist didn't feel comfortable giving her something stronger for pain. Complaining of headache, lower back and flank pain. Patient states, they gave me Morphine in the ER....I can't understand why I can't get it now. This nurse explained to patient to speak with her physician in regard to something stronger for pain. Stated that she would. Will monitor.
--- NOTE | 2019-09-04 21:56 | PC.NURSE ---
Phenergan PO given as requested by patient. Will monitor. Did state, headache is a little better.
[2019-09-05 03:30] LABS: Basophils % 0.2 %; Eosinophils # 0.2 10^3/uL (0.0-0.8); Hematocrit 24.9 % (37.0-47.0); Hemoglobin 7.7 g/dL (11.5-15.3); Lymphocytes # 0.8 10^3/uL (0.8-4.8); Lymphocytes % 18.5 %; Mean Corpuscular HGB Conc 30.9 g/dL (30.0-36.0); Mean Corpuscular Volume 100.4 fL (81-99); Monocytes # 0.4 10^3/uL (0.2-0.9); Monocytes % 9.5 %; Neutrophils # 2.9 10^3/uL (1.8-7.7); Neutrophils % 67.6 %; Nucleated Red Blood Cells % 0 %; Platelet Count 107 10^3/cmm (130-400); Red Blood Count 2.48 10^6/uL (4.1-5.3); Red Cell Distribution Width 13.6 % (12.1-15.1); White Blood Count 4.2 10^3/uL (4.0-10.0)
[2019-09-05 04:00] VITALS: BP 99/65; PULSE 68; RESP 16; TEMP 36.6; O2SAT 96
[2019-09-05 04:07] LABS: Iron 85 ug/dL (37-145); Percent Saturation 45.4 % (20-50); Total Iron Binding Capacity 187 mg/dL; Unsaturated Iron Binding 102 ug/dL (112-347)
[2019-09-05 08:00] VITALS: BP 92/56; PULSE 75; RESP 18; TEMP 36.6; O2SAT 91
[2019-09-05] MEDS: cefTRIAXone 1,000 MG in sodium chloride 0.9% (plus) 50 ML 100 MG IV (08:21)
[2019-09-05] MEDS: promethazine 25 mg Tablet PO (08:22)
--- NOTE | 2019-09-05 08:30 | PC.NURSE ---
Refusing dialysis Patient refusing dialysis. States that she feels horrible. Pt educated regarding risk of not having dialysis, pt states that she understands that not having dialysis is detrimental to her care. Pt continues to refuse in spite of danger to her life.
--- NOTE | 2019-09-05 11:10 | PM.DCS ---
Discharge Providers Date of Admission: 09/04/19 00:42 Date of Discharge: 09/05/19 Attending Provider at Admission: Janet Gutierrez MD Attending Provider at Discharge: Allyson Mak MD Primary Care Provider: Carie Man Diagnoses at Discharge Discharge Diagnosis (1) ESRD (end stage renal disease) on dialysis: Status: Acute Problem details: -patient has hx of ESRD secondary to PCKD, is dialysis-dependent (HD on MWF); access is AV fistula (LUE) -has hx of non-compliance with dialysis sessions -Nephrology consulted as will likely need HD due to noted hyperkalemia, evidence of fluid overload on imaging, dyspnea, higher than baseline oxygen requirement. Patient declined HD yesterday, scheduled for today which she has again declined. -continue to monitor renal function and electrolytes -avoid nephrotoxins and renally dose meds -renal diet as tolerated -Anuric at baseline (2) Acute hyperkalemia: Status: Acute Problem details: -noted K this AM 6.3 -telemetry monitoring -no noted ECG changes; received kayexelate as well as Neb treatment in ED (3) Acute dyspnea: Status: Acute Problem details: -likely secondary to fluid overload as evidenced by imaging findings, BNP-35,000 -received 80 mg dose of IV Lasix in ED -seems to be anuric at baseline -continue to monitor respiratory status -supplemental oxygen as needed, not oxygen dependent at baseline -will likely need HD (4) Hypertension: Status: Acute Problem details: -had hypertensive urgency in ED; BP now improved -continue to monitor vital signs Qualifiers: Hypertension type: essential hypertension Qualified Code(s): I10 - Essential (primary) hypertension Other Information Additional DC diagnoses/information: -Underweight: BMI-17 kg/m2 -Acute metabolic encephalopathy: noted increased anion gap metabolic acidosis, abnormal UA with hx of recurrent UTIs. Will start on empiric Ceftriaxone, continue to monitor mental status, fall precautions, has multiple prior urine cx which were contaminated. -Chronic normocytic anemia; baseline Hg is around 9; iron panel noted; Hg slightly below baseline -Chronic smoker; hx of substance abuse (methamphetamines) -Chronic hepatitis C -Chronic thrombocytopenia; baseline platelet count 80-120 Reason for Visit Reason for Visit: Reason For Visit: SOB Hospital Course Hospital Course: Patient was admitted to the cardiac stepdown unit and Nephrology consulted due to need for hemodialysis given clinical findings of fluid overload, altered mental status and electrolyte impairments. Patient has a history of noncompliance with hemodialysis. Per dialysis center ([facility]) she has not received dialysis there since 08/03/2019. Last dialysis was at our facility on 08/30 prior to this admission. Multiple discussions were had with the patient about need for hemodialysis which she continuously declined. We then discussed option of hospice if she is declining her life saving treatment of dialysis at which point patient opted to leave AGAINST MEDICAL ADVICE. She is very high risk for readmission particularly given that she has now declined her scheduled dialysis for today. Patient is very nonchalant about her decision. Patient does have a history of difficult to control hypertension which may also be related to noncompliance with her medications. She was quite hypertensive on her admission to the hospital but blood pressure has since improved. Physical Exam Const: COMMON NORMALS: no apparent distress and oriented x3 GENERAL APPEARANCE: cooperative and comfortable NUTRITIONAL APPEARANCE: cachectic ORIENTATION/CONSCIOUSNESS: Yes awake HENMT: COMMON NORMALS: normocephalic, head/scalp atraumatic, hearing grossly normal bilaterally and moist oral mucous membranes HEAD & SCALP: normocephalic and atraumatic Eye: COMMON NORMALS: PERRL, EOMs intact bilaterally and conjunctivae normal CONJUNCTIVA: Yes conjunctivae normal PUPIL: Yes PERRL Neck/C-Spine: COMMON NORMALS: full ROM GENERAL: Yes normal visual inspection and Yes trachea midline Resp: COMMON NORMALS: normal respiratory effort, no retractions, no use of accessory muscles and clear to auscultation bilaterally EFFORT & INSPECTION: Yes able to speak in complete sentences, Yes symmetric chest movement and No tachypneic AUSCULTATION: clear to auscultation bilaterally Cardio: COMMON NORMALS: regular rate, regular rhythm, S1 normal heart sound, S2 normal heart sound and no murmurs RATE: regular rate RHYTHM: regular rhythm HEART SOUNDS: S1 normal and S2 normal GI: COMMON NORMALS: normal to inspection, nondistended, normoactive bowel sounds, soft to palpation and non-tender PALPATION: Yes soft Extremity: COMMON NORMALS: normal to inspection, full ROM and no clubbing, cyanosis or edema; negative for no pedal edema NARRATIVE EXTREMITY EXAM: -patient has AV fistula access GENERAL: Yes AV fistula (on L; palpable thrum, +bruit) Neuro: COMMON NORMALS: oriented x3, moves all extremities, no focal motor deficits, no sensory deficits noted and gait normal Psych: COMMON NORMALS: mental status grossly normal, thought process normal, cooperative, affect normal and speech normal SPEECH: Yes normal speech THOUGHT PROCESS: normal thought process Skin: COMMON NORMALS: no rashes or lesions noted, no jaundice, no petechiae and no mottling GENERAL SKIN EXAM: no rashes or lesions noted Discharge Data Data Completed and Pending: Completed Studies During Hospitalization Category Date Time Status XR chest 1V kael ble [id number] Urgent Exams 09/03/19 22:23 Completed Labs from last 24 hours 09/05/19 09/05/19 09/04/19 02:35 02:35 14:15 WBC 4.2 RBC 2.48 L Hgb 7.7 L Hct 24.9 L MCV 100.4 H MCH 31.0 MCHC 30.9 RDW 13.6 Plt Count 107 L MPV 13.0 H Neut % (Auto) 67.6 Lymph % (Auto) 18.5 [place] % (Auto) 9.5 Eos % (Auto) 4.0 Baso % (Auto) 0.2 Neut # (Auto) 2.9 Lymph # (Auto) 0.8 [place] # (Auto) 0.4 Eos # (Auto) 0.2 Baso # (Auto) 0.0 Nucleated RBC % (a uto) 0 Nucleated RBCs # 0.0 Sodium 136 Potassium 6.0 H Chloride 94 L Carbon Dioxide 20 L Anion Gap 28.0 H BUN 57 H Creatinine 14.3 H* GFR Calculation 2.9 L Glucose 125 H Calcium 8.0 L Iron 85 TIBC 187 % Saturation 45.4 Unsat Iron Binding 102 L Vitals: Last Vital Signs Temp 97.8 F 09/05/19 08:00 Pulse 75 09/05/19 08:00 Resp 18 09/05/19 08:00 BP 92/56 09/05/19 08:00 Pulse Ox 91 09/05/19 08:00 Discharge Plan Discharge Patient Disposition: Left Against Medical Advice Condition: Stable Prescriptions: Continued metoprolol succinate 25 mg tablet extended release 24 hr 50 mg PO BID PRN (Reason: Blood Pressure) RF: 0 Auryxia 210 mg iron tablet 2,000 mg PO TID RF: 0 clonidine 0.3 mg/24 hr patch weekly 0.3 mg transdermal Q7D RF: 0 nifedipine 30 mg tablet extended release 30 mg PO DAILY Qty: 30 RF: 0 metoprolol succinate 100 mg Tablet Extended Release 24 Hr 100 mg PO BEDTIME RF: 0 minoxidil 2.5 mg Tablet 2.5 mg PO DAILY RF: 0 losartan 100 mg Tablet 100 mg PO DAILY RF: 0 sofosbuvir-velpatasvir [Epclusa] 400-100 mg Tablet 1 tab PO DAILY RF: 0 RenaPlex 800 mcg- 12.5 mg Tablet 1 tab PO DAILY RF: 0 Discharge Orders: Discharge Order (Routine); Ordered 09/05/19 Ordered By: Allyson Mak Referrals: Carie Man DO [Primary Care Provider] - 4-7 days Discharge Diet: renal diet as tolerated Discharge Activity: Resume usual activity Discharge Attestations Time Spent in Discharge Care*: greater than 30 min Specific Discharge Activities: Specific discharge activities: educating patient, discussing with pcp/other providers, discussing with case management social worker/social workers/dc planners and evaluating patient/reviewing data Quality Metrics Clinical Quality Measures During this hospital stay, did patient experience: None Coding Level of Care Code Acute Network Operations Lead for Chg Fwd Diagnoses ESRD (end stage renal disease) on dialysis N18.6; Z99.2 Acute hyperkalemia E87.5 Acute dyspnea R06.00 Hypertension I10 Hypertension type: essential hypertension
[2019-09-05 11:44] VITALS: BP 100/68; PULSE 75; RESP 17; TEMP 36.9; O2SAT 90
--- NOTE | 2019-09-05 12:24 | PM.PN ---
Subjective Subjective: Interval history: Ruby is seen at bedside. She refused dialysis today, my arm hurts . She also told our medical technologist chemistry that she had dialysis on Sun but we know this is not true. No overt uremic Sx. No edema or resp distress Medications: Reviewed: Yes Medication Review Details: Active Medications Generic Name Dose Route Start Last Admin Trade Name Freq PRN Reason Stop Dose Admin Acetaminophen 650 mg 09/04/19 02:06 Tylenol PO Q6H PRN Mild/Mod Pain Or Temp >/= 101 Clonidine HCl 1 patch 09/04/19 09:00 Catapres-Tts 3 TRANSDERMA Q7D LANDY Ceftriaxone Sodium 1,000 mg/ 50 mls @ 100 mls/ hr 09/04/19 08:30 Sodium Chloride IV Q24H [facility] Protocol Metoprolol Succina te 50 mg 09/04/19 09:00 Toprol Xl PO BID [facility] Minoxidil 2.5 mg 09/04/19 09:00 Minoxidil PO DAILY [facility] Nifedipine 30 mg 09/04/19 09:00 Procardia Xl PO DAILY [facility] Non-Formulary Medi cation 15 gram 09/04/19 08:16 Kayexylate PO 09/04/19 08:17 ONCE STA Promethazine HCl 25 mg 09/04/19 03:23 09/04/19 07:12 Phenergan PO 25 mg Q6H PRN Administration NAUSEA clindamycin Allergy (Unknown, Verified 09/02/19 16:17) Unknown codeine Allergy (Unknown, Verified 09/02/19 16:17) Unknown erythromycin base Allergy (Unknown, Verified 09/02/19 16:17) Unknown ketorolac [From Toradol] Allergy (Unknown, Verified 09/02/19 16:17) Unknown levofloxacin [From Levaquin] Allergy (Unknown, Verified 09/02/19 16:17) Unknown ondansetron [From Zofran] Allergy (Unknown, Verified 09/02/19 16:17) Unknown Penicillins Allergy (Unknown, Verified 09/02/19 16:17) Unknown tramadol [From Ultram] Allergy (Unknown, Verified 09/02/19 16:17) Unknown Vitals/I&O/Wt Last Vital Signs Temp 98.4 F 09/05/19 11:44 Pulse 75 09/05/19 11:44 Resp 17 09/05/19 11:44 BP 100/68 09/05/19 11:44 Pulse Ox 90 09/05/19 11:44 09/04/19 09/05/19 09/05/19 22:59 06:59 14:59 Intake Total 240 / 650.1 240 / 240 Balance 240 / 650.1 240 / 240 Weight last 48 hrs Weight 40.551 kg Weight 44.633 kg Weight 44.588 kg Weight 38.102 kg Physical Exam Const: COMMON NORMALS: no apparent distress HENMT: COMMON NORMALS: normocephalic and head/scalp atraumatic HEAD & SCALP: normocephalic and atraumatic Eye: COMMON NORMALS: PERRL and EOMs intact bilaterally PUPIL: Yes PERRL Neck/C-Spine: COMMON NORMALS: no JVD Lymph: LYMPHATIC: no lymphadenopathy noted and no lymphedema noted Chest: COMMONS NORMALS: inspection of chest normal and palpation of chest normal Resp: COMMON NORMALS: normal respiratory effort and no retractions Cardio: COMMON NORMALS: no JVD and regular rate RATE: regular rate GI: COMMON NORMALS: normal to inspection, nondistended, normoactive bowel sounds A&P Additional A&P Information Additional A&P Information: ESRD, hyperkalemia and refusal of care - I had a heart to heart with Ruby; She is now refusing life saving, essential therapy. She fully understands the elevation in potassium can stop her heart from beating. I have asked to consider hospice/palliative care at this time and she is agreeable to an interview. I also mentioned to her that she is able to change her mind she wants to pursue dialysis therapy. She fully understands the gravity of the situation and appreciates that as a team we need clarity in our goals of care. - I will evaluate her in the morning to see if she wants to have the haemodialysis. She is currently refusing therapy for her elevation potassium including medical therapy. I'm available to prescribe this for her if she does change her mind. Attestations Medical Necessity Statement*: Management of end-stage kidney disease Coding Level of Care Code Acute Line Supply for Rosalio Kaur
[2019-09-05 13:18] VITALS: BP 100/68; PULSE 75; RESP 17; TEMP 36.9; O2SAT 90
[2019-09-05 13:35] VITALS: PULSE 98; O2SAT 91
--- NOTE | 2019-09-05 13:35 | PC.NURSE ---
Left AMA Pt left against medical advice. Encouraged pt to wait until home 02 could be arranged and hospice if that was her choice and she stated My uncle is here. I am leaving. Pt unwilling to wait in room - ambulated to main entrance per her request. Dr. Mak and Zoe Michaud RN notified.
== END 2019-09-05 13:39 | disposition left against medical advice (07) ==
LOC: ER 23:08 → CSU 09-04 01:04
PROVIDERS: Internal Medicine; Admitting Provider Hospitalist; Emergency Provider Emergency Medicine; Family Provider Family Medicine; PCP Family Medicine; Visit Provider Family Medicine
DX: I12.0 Hypertensive chronic kidney disease with stage 5 chronic kidney disease or end stage renal disease (principal); N18.6 End stage renal disease; R06.00 Dyspnea, unspecified; E87.5 Hyperkalemia; Z99.2 Dependence on renal dialysis; D63.1 Anemia in chronic kidney disease; F32.9 Major depressive disorder, single episode, unspecified; Z86.14 Personal history of Methicillin resistant Staphylococcus aureus infection; F17.210 Nicotine dependence, cigarettes, uncomplicated; Z91.19 Patient's noncompliance with other medical treatment and regimen; R63.6 Underweight; Z68.1 Body mass index [BMI] 19.9 or less, adult; G93.41 Metabolic encephalopathy; Z81.4 Family history of other substance abuse and dependence; B18.2 Chronic viral hepatitis C; D69.6 Thrombocytopenia, unspecified; Z82.49 Family history of ischemic heart disease and other diseases of the circulatory system; Z83.3 Family history of diabetes mellitus; R00.0 Tachycardia, unspecified; J81.1 Chronic pulmonary edema; B19.20 Unspecified viral hepatitis C without hepatic coma
CPT/HCPCS: 36415; 71045; 80048; 81003; 83540; 83550; 83735; 83880; 84100; 85025; 93005; 94640; 96365; 96375; 99283; 99285; A9270; G0378; J0610; J0696; J1815; J1940; Q0169; Q3014

== ENCOUNTER 2019-09-09 10:10 | Outpatient (CLI) | payer OTHER, SELFPAY ==
--- NOTE | 2019-09-09 10:15 | US_ITS ---
WS: [id number] ULTRASOUND ABDOMEN CLINICAL INFORMATION: B18.2 Chronic viral hepatitis C COMPARISON: CT August 21, 2019 FINDINGS: Liver Size: Normal. Craniocaudal length: 13.9 cm. Echogenicity: Coarse Surface nodularity: None. Mass (size and location): None. Bile ducts Intrahepatic ducts: Normal. Common bile duct diameter: 2.7 mm. Gallbladder Normal. Gallstones: None. Gallbladder sludge: None. Gallbladder wall thickening: None. Pericholecystic fluid: None. Sonographic Limon sign: Absent. Pancreas Normal as visualized. Right kidney: Polycystic Hydronephrosis: None. Size: 14.5 cm x 8.3 cm x 9.4 cm Abdominal aorta and IVC Visualized portions are normal. Ascites: None. US/US liver [id number] IMPRESSION: 1. Coarse hepatic echogenicity likely due to hepatocellular disease. No hepato megaly. 2. Gallbladder is normal 3. Polycystic right kidney is unchanged. 4. Normal common bile duct.
== END 2019-09-09 10:11 | disposition home or self-care (01) ==
LOC: RAD 10:10
PROVIDERS: Family Provider Family Medicine; PCP Family Medicine; Visit Provider Internal Medicine
DX: B18.2 Chronic viral hepatitis C (principal); Q61.3 Polycystic kidney, unspecified
CPT/HCPCS: 76705

== ENCOUNTER 2019-09-11 04:41 | Emergency (ER) | payer OTHER, SELFPAY ==
[2019-09-11 04:41] VITALS: BP 150/108; PULSE 95; RESP 18; TEMP 36.4; O2SAT 94; BMI 14.5
--- NOTE | 2019-09-11 04:46 | ECG_ITS ---
Measurements Intervals [place] Rate: 92 P: 48 MT: 188 QRS: 108 QRSD: 102 T: 65 QT: 418 QTc: 517 SINUS RHYTHM POSSIBLE LEFT ATRIAL ENLARGEMENT [-0.1mV P WAVE IN V1/V2] RIGHT AXIS DEVIATION [QRS AXIS > 100] Compared to ECG 09/04/2019 00:21:53 Sinus tachycardia no longer present Electronically Signed On 09-11-2019 17:32:27 ON AWAKE COUNSELOR by Abby Durán M.D. [email or web address]
--- NOTE | 2019-09-11 04:46 | ED_ITS ---
Documented by User: Karlee Jha MD 09/11/19 04:59 HPI - SOB/Dyspnea General: Chief Complaint: Nausea/Vomiting/Diarrhea Stated Complaint: N/V Time Seen by Provider: 09/11/19 04:45 Source: patient and EMS Mode of arrival: EMS Limitations: no limitations History of Present Illness: HPI Narrative: Patient is a 39-year-old female with a history of end-stage renal disease states she is been having some shortness of breath. Patient recently placed on hospice a week ago and her last dialysis was a week ago. She states to me that she just wants to have her potassium checked and to have insulin given and is high but does not want dialysis and does not want to be admitted. Patient is on oxygen at home. She denies any chest pain at this time. MD elicited complaint: shortness of breath Associated symptoms: Deny abdominal pain, chest pain, fever(s), nausea, polyuria or vomiting Review of Systems Const: Denies: fever or chills Eyes: Denies: change in vision ENMT: Denies: throat pain or mouth pain Card: Denies: chest pain Resp: Reports: shortness of breath GI: Denies: abdominal pain, nausea, vomiting or diarrhea : Denies: difficulty urinating Musc: Denies: back pain or joint pain Skin/Breast: Denies: rash Neuro: Denies: headache or behavioral changes Psych: Denies: depression Endo: Denies: excessive urination Kevan/Lymph: Denies: easy bruising All/Imm: Denies: hives PFSH ED PFSH: Statuses (acute, chronic, etc) shown below reflect problem list status as previously entered and may not be historically accurate Medical History Anemia (Chronic) Chronic hepatitis C (Resolved) sees Dg Depression (Resolved) ESRD (end stage renal disease) on dialysis (Acute) -patient has hx of ESRD secondary to PCKD, is dialysis-dependent (HD on MWF); access is AV fistula (LUE) -has hx of non-compliance with dialysis sessions -Nephrology consulted as will likely need HD due to noted hyperkalemia, evidence of fluid overload on imaging, dyspnea, higher than baseline oxygen requirement. Patient declined HD yesterday, scheduled for today which she has again declined. -continue to monitor renal function and electrolytes -avoid nephrotoxins and renally dose meds -renal diet as tolerated -Anuric at baseline Hemodialysis access, AV graft (Acute) Left upper extremity Hypertension (Acute) -had hypertensive urgency in ED; BP now improved -continue to monitor vital signs Polycystic kidney disease (Acute) Polysubstance abuse (Resolved) Renal osteodystrophy (Acute) Staphylococcus aureus bacteremia (Acute) MSSA bacteremia 08/14-09/15 Thrombocytopenia (Acute) Surgical History S/P dialysis catheter insertion (Acute Unknown) S/P tooth extraction (Acute) Family History Other Diabetes Hypertension Polycystic kidney disease Social History Smoking and tobacco status: current every day smoker Alcohol intake: never Desire information about substance/drug rehabilitation?: No Counseling given: Yes Caregiver/support person: Yes Household members: family Marital status: Single Physical Exam Const: GENERAL APPEARANCE: in distress and frail appearing HENMT: COMMON NORMALS: normocephalic and external nose normal HEAD & SCALP: normocephalic NOSE: external nose normal and no nasal discharge (nasal dischage) Eye: COMMON NORMALS: PERRL PUPIL: Yes PERRL Neck/C-Spine: COMMON NORMALS: full ROM and no lymphadenopathy Chest: COMMONS NORMALS: inspection of chest normal Resp: EFFORT & INSPECTION: Yes tachypneic and Yes respiratory distress AUSCULTATION: rales Cardio: COMMON NORMALS: regular rate and regular rhythm RATE: regular rate RHYTHM: regular rhythm GI: COMMON NORMALS: soft to palpation PALPATION: Yes soft Extremity: COMMON NORMALS: normal to inspection, full ROM and normal capillary refill Psych: COMMON NORMALS: mental status grossly normal and cooperative Skin: COMMON NORMALS: no rashes or lesions noted GENERAL SKIN EXAM: no rashes or lesions noted Course Vital Signs: Vital signs: Vital Signs Temperature 97.6 F 09/11/19 04:41 Pulse Rate 93 09/11/19 07:19 Respiratory Rate 16 09/11/19 07:19 Blood Pressure 150/108 09/11/19 04:41 Pulse Oximetry 95 01/16/20 07:19 MDM - SOB/Dyspnea Lab Data: Labs: Lab Results 09/11/19 Range/Units 04:58 Sodium 137 (136-145) mmol/L Potassium 7.5 H* (3.5-5.1) mmol/L Chloride 96 L (98-107) mmol/L Carbon Dioxide 13 L (22-29) mmol/L Anion Gap 35.5 H (5-19) BUN 103 H* D (6-20) mg/dL Creatinine 19.7 H* (0.5-0.9) mg/dL GFR Calculation 2.0 L (90-130) mL/min Glucose 89 (74-109) mg/dL Calcium 6.4 L (8.6-10.0) mg/Dl EKG Data^: EKG 1: Attestation: I personally reviewed and interpreted this EKG as follows: EKG Interpretation Date: 09/11/19 EKG interpretation time: 04:56 Interpretation: nsr hr [address] or t wave abnormalities qrs 102 qtc 467 Discharge Plan Discharge Patient Disposition: Hospice - Home Clinical Impression: End of life care, ESRD (end stage renal disease) on dialysis, Acute hyperkal emia, Uremia Condition: Stable Prescriptions: No Action metoprolol succinate 25 mg tablet extended release 24 hr 50 mg PO BID PRN (Reason: Blood Pressure) RF: 0 Auryxia 210 mg iron tablet 2,000 mg PO TID RF: 0 clonidine 0.3 mg/24 hr patch weekly 0.3 mg transdermal Q7D RF: 0 nifedipine 30 mg tablet extended release 30 mg PO DAILY Qty: 30 RF: 0 metoprolol succinate 100 mg Tablet Extended Release 24 Hr 100 mg PO BEDTIME RF: 0 minoxidil 2.5 mg Tablet 2.5 mg PO DAILY RF: 0 losartan 100 mg Tablet 100 mg PO DAILY RF: 0 sofosbuvir-velpatasvir [Epclusa] 400-100 mg Tablet 1 tab PO DAILY RF: 0 RenaPlex 800 mcg- 12.5 mg Tablet 1 tab PO DAILY RF: 0 Xanax RF: 0 Discharge Orders: Discharge Order (Routine); Ordered 09/11/19 Ordered By: Keith Giles Referrals: Carie Man DO [Primary Care Provider] - Discharge Diet: Advance as tolerated Discharge Activity: Increase activity as tolerated Discharge Date/Time: 09/11/19 07:20 Sign Out Sign Out Data: Patient Sign Out occurred on 09/11/19 at 05:53. Patient's care was discussed, and care was transferred from to Keith Giles DO. Coding Level of Care Code ED Feller Seam Operator for Chg Fwd Documented by User: Keith Giles DO 09/11/19 07:32 HPI - SOB/Dyspnea General: Chief Complaint: Nausea/Vomiting/Diarrhea Stated Complaint: N/V Time Seen by Provider: 09/11/19 04:45 PFSH ED PFSH: Statuses (acute, chronic, etc) shown below reflect problem list status as previously entered and may not be historically accurate Medical History Anemia (Chronic) Chronic hepatitis C (Resolved) sees Conte Depression (Resolved) ESRD (end stage renal disease) on dialysis (Acute) -patient has hx of ESRD secondary to PCKD, is dialysis-dependent (HD on MWF); access is AV fistula (LUE) -has hx of non-compliance with dialysis sessions -Nephrology consulted as will likely need HD due to noted hyperkalemia, evidence of fluid overload on imaging, dyspnea, higher than baseline oxygen requirement. Patient declined HD yesterday, scheduled for today which she has again declined. -continue to monitor renal function and electrolytes -avoid nephrotoxins and renally dose meds -renal diet as tolerated -Anuric at baseline Hemodialysis access, AV graft (Acute) Left upper extremity Hypertension (Acute) -had hypertensive urgency in ED; BP now improved -continue to monitor vital signs Polycystic kidney disease (Acute) Polysubstance abuse (Resolved) Renal osteodystrophy (Acute) Staphylococcus aureus bacteremia (Acute) MSSA bacteremia 08/14-09/15 Thrombocytopenia (Acute) Surgical History S/P dialysis catheter insertion (Acute Unknown) S/P tooth extraction (Acute) Family History Other Diabetes Hypertension Polycystic kidney disease Social History Smoking and tobacco status: current every day smoker Alcohol intake: never Desire information about substance/drug rehabilitation?: No Counseling given: Yes Caregiver/support person: Yes Household members: family Marital status: Single Course ED course: Reviewed labs with the patient. She is lethargic difficult to keep awake and aroused. Her potassium is 7.5 BUN 103 and creatinine 19.7. She had previously chosen to stop dialysis and is currently on hospice. N sign off from Dr. Jha note was related that she wanted to have her potassium treated. I discussed with the patient that we can certainly do that if she wishes however is not likely to be significantly lowered just using insulin we do not have IV access and it would take some difficulty to attain it given her current status. Patient instead prefers to return home with hospice. She [facility]. We will contact that nurse make them aware additionally will make arrangements for transportation home for her. Vital Signs: Vital signs: Vital Signs Temperature 97.6 F 09/11/19 04:41 Pulse Rate 93 09/11/19 07:19 Respiratory Rate 16 09/11/19 07:19 Blood Pressure 150/108 09/11/19 04:41 Pulse Oximetry 95 09/11/19 07:19 MDM - SOB/Dyspnea Lab Data: Labs: Lab Results 09/11/19 Range/Units 04:58 Sodium 137 (136-145) mmol/L Potassium 7.5 H* (3.5-5.1) mmol/L Chloride 96 L (98-107) mmol/L Carbon Dioxide 13 L (22-29) mmol/L Anion Gap 35.5 H (5-19) BUN 103 H* D (6-20) mg/dL Creatinine 19.7 H* (0.5-0.9) mg/dL GFR Calculation 2.0 L (90-130) mL/min Glucose 89 (74-109) mg/dL Calcium 6.4 L (8.6-10.0) mg/Dl Discharge Plan Discharge Patient Disposition: Hospice - Home Clinical Impression: End of life care, ESRD (end stage renal disease) on dialysis, Acute hyperkalemia, Uremia Condition: Stable Prescriptions: No Action metoprolol succinate 25 mg tablet extended release 24 hr 50 mg PO BID PRN (Reason: Blood Pressure) RF: 0 Auryxia 210 mg iron tablet 2,000 mg PO TID RF: 0 clonidine 0.3 mg/24 hr patch weekly 0.3 mg transdermal Q7D RF: 0 nifedipine 30 mg tablet extended release 30 mg PO DAILY Qty: 30 RF: 0 metoprolol succinate 100 mg Tablet Extended Release 24 Hr 100 mg PO BEDTIME RF: 0 minoxidil 2.5 mg Tablet 2.5 mg PO DAILY RF: 0 losartan 100 mg Tablet 100 mg PO DAILY RF: 0 sofosbuvir-velpatasvir [Epclusa] 400-100 mg Tablet 1 tab PO DAILY RF: 0 RenaPlex 800 mcg- 12.5 mg Tablet 1 tab PO DAILY RF: 0 Xanax RF: 0 Discharge Orders: Discharge Order (Routine); Ordered 09/11/19 Ordered By: Keith Giles Referrals: Carie Man DO [Primary Care Provider] - Discharge Diet: Advance as tolerated Discharge Activity: Increase activity as tolerated Discharge Date/Time: 09/11/19 07:20 Sign Out Sign Out Data: Patient Sign Out occurred on 09/11/19 at 05:53. Patient's care was discussed, and care was transferred from to Keith Giles DO. Coding Level of Care Code ED Feller Seam Operator for Rosalio Kaur
[2019-09-11 05:23] LABS: Anion Gap 35.5 (5-19); Calcium 6.4 mg/Dl (8.6-10.0); Carbon Dioxide 13 mmol/L (22-29); Chloride 96 mmol/L (98-107); Glucose 89 mg/dL (74-109); Sodium 137 mmol/L (136-145)
[2019-09-11 05:33] LABS: Blood Urea Nitrogen 103 mg/dL (6-20); Potassium 7.5 mmol/L (3.5-5.1)
--- NOTE | 2019-09-11 05:56 | PC.NURSE ---
Patient presents to ED with nausea and vomiting. Patient wants to have her potassium checked as she is no longer taking dialysis since going to hospice care.
[2019-09-11] MEDS: LORazepam 2 mg/mL INJ 1 mL 1 MG IM (06:55)
[2019-09-11 07:08] VITALS: PULSE 95; RESP 15; O2SAT 95
--- NOTE | 2019-09-11 07:15 | PC.NURSE ---
Blankets brought to pt. No other needs at this time.
[2019-09-11 07:19] VITALS: PULSE 93; RESP 16; O2SAT 95
[2019-09-16 10:19] LABS: Heparin XA Low Molecular <0.20 IU/mL
== END 2019-09-11 07:20 | disposition hospice, home (50) ==
PROVIDERS: Emergency Medicine; Emergency Provider Family Medicine; Family Provider Family Medicine; PCP Family Medicine
DX: I12.0 Hypertensive chronic kidney disease with stage 5 chronic kidney disease or end stage renal disease (principal); N18.6 End stage renal disease; Z99.2 Dependence on renal dialysis; E87.5 Hyperkalemia; Z86.19 Personal history of other infectious and parasitic diseases; F17.210 Nicotine dependence, cigarettes, uncomplicated
CPT/HCPCS: 36415; 80048; 85520; 93005; 96372; 99282; J2060

== ENCOUNTER 2019-09-16 13:24 | Emergency (ER) | payer OTHER, MEDICAID, SELFPAY ==
[2019-09-16 12:59] VITALS: BP 126/86; PULSE 67; RESP 16; TEMP 36.9; O2SAT 96; BMI 14.5
--- NOTE | 2019-09-16 13:11 | ED_ITS ---
Entered by Sudhakar Arambula, acting as scribe for Scottie Burden DO HPI - General Adult General: Chief complaint: General Medical Stated complaint: MULTI COMPLAINTS/HOSPICE History of Present Illness: HPI narrative: 39 yo female presents with nausea and vomiting. Pt states that she feels a little better after EMS gave her some phenergan enroute. Pt states that she has fallen 2 times today. pt states that she drinks water all the time. Pt states that she is on hospice now. Pt states that she feels dizzy. Pt states that she hasn't been to dialysis in 2 weeks. Pt states that her mid back hurts from falling. Onset (ago): day(s) Severity: mild and moderate Associated symptoms: Reports headache(s), nausea and vomiting; Deny chest pain, dyspnea, malaise, rash or palpitations Review of Systems General: Reports: 10 or more systems reviewed and unremarkable except in HPI and below Const: Denies: fever, chills, body aches, change in appetite, change in w eight, fatigue or malaise Eyes: Denies: change in vision, blurry vision, blind spots, photophobia, eye discomfort or eye discharge ENMT: Denies: throat pain, uvular edema, enlarged tonsils, painful swallowing or hoarseness Card: Denies: chest pain, palpitations, irregular heart rhythm, edema or swelling of feet/ankles Resp: Denies: shortness of breath, productive cough, non-productive cough, wheezing or stridor GI: Reports: nausea and vomiting : Denies: urinary urgency, urinary hesitancy, urinary dribbling or nighttime urination Musc: Denies: neck pain, back pain, extremity pain, extremity swelling or joint pain Skin/Breast: Denies: rash, itching, redness, sensitivity to light, skin pain or skin tenderness Neuro: Reports: headache, frequent falls and dizziness; Denies: numbness in extremities, weakness in extremities or changes in sensation Psych: Reports: sleeping more Endo: Denies: excessive urination, excessive thirst or tired all the time PFSH ED PFSH: Statuses (acute, chronic, etc) shown below reflect problem list status as previously entered and may not be historically accurate Medical History Anemia (Chronic) Chronic hepatitis C (Resolved) sees Dg Depression (Resolved) ESRD (end stage renal disease) on dialysis (Acute) -patient has hx of ESRD secondary to PCKD, is dialysis-dependent (HD on MWF); access is AV fistula (LUE) -has hx of non-compliance with dialysis sessions -Nephrology consulted as will likely need HD due to noted hyperkalemia, evidence of fluid overload on imaging, dyspnea, higher than baseline oxygen requirement. Patient declined HD yesterday, scheduled for today which she has again declined. -continue to monitor renal function and electrolytes -avoid nephrotoxins and renally dose meds -renal diet as tolerated -Anuric at baseline Hemodialysis access, AV graft (Acute) Left upper extremity Hypertension (Acute) -had hypertensive urgency in ED; BP now improved -continue to monitor vital signs Polycystic kidney disease (Acute) Polysubstance abuse (Resolved) Renal osteodystrophy (Acute) Staphylococcus aureus bacteremia (Acute) MSSA bacteremia 08/14-09/15 Thrombocytopenia (Acute) Surgical History S/P dialysis catheter insertion (Acute Unknown) S/P tooth extraction (Acute) Family History Other Diabetes Hypertension Polycystic kidney disease Social History Smoking and tobacco status: current every day smoker Alcohol intake: never Desire information about substance/drug rehabilitation?: No Counseling given: Yes Caregiver/support person: Yes Household members: family Marital status: Single Physical Exam Const: COMMON NORMALS: no apparent distress, average body habitus, oriented x3, no limitations, healthy appearing, alert and well nourished HENMT: COMMON NORMALS: normocephalic, head/scalp atraumatic, hearing grossly normal bilaterally, external ears normal, EAC's normal, TM's normal bilaterally, external nose normal, nasal mucous membranes and turbinates normal, moist oral mucous membranes, oropharynx normal, dentition normal and gingiva normal HEAD & SCALP: normocephalic and atraumatic NOSE: external nose normal and nasal mucous membranes and turbinates normal EXTERNAL EAR: Yes external ears normal EXTERNAL AUDITORY CANAL: EAC's normal TYMPANIC MEMBRANE: TM's normal bilaterally THROAT: no uvular edema Eye: COMMON NORMALS: PERRL, EOMs intact bilaterally, conjunctivae normal, no scleral icterus, no papilledema, normal visual neal by confrontation and fundi normal bilaterally CONJUNCTIVA: Yes conjunctivae normal PUPIL: Yes PERRL DIRECT OPHTHALMOSCOPY: Yes no papilledema and Yes fundi normal bilaterally Neck/C-Spine: COMMON NORMALS: full ROM, no lymphadenopathy, supple, no meningeal signs, no JVD, thyroid normal and no carotid bruits THYROID: thyroid normal Chest: COMMONS NORMALS: inspection of chest normal and palpation of chest normal Resp: COMMON NORMALS: normal respiratory effort, no retractions, no use of accessory muscles, clear to auscultation bilaterally and percussion normal AUSCULTATION: clear to auscultation bilaterally PERCUSSION: percussion normal Cardio: COMMON NORMALS: no JVD, regular rate, regular rhythm, S1 normal heart sound, S2 normal heart sound, no gallops, no clicks, no murmurs, no rub and peripheral pulses 2+ throughout RATE: regular rate RHYTHM: regular rhythm HEART SOUNDS: S1 normal and S2 normal PERIPHERAL PULSES: pulses 2+ throughout GI: COMMON NORMALS: normal to inspection, nondistended, normoactive bowel sounds, soft to palpation, non-tender, no hepatosplenomegaly, no masses and no bruits PALPATION: Yes soft and Yes no hepatosplenomegaly : COMMON NORMALS: Yes no CVA tenderness and Yes external appearance normal BLADDER/KIDNEY EXAM: Yes no CVA tenderness Back/Pelvis: COMMON NORMALS: no CVA tenderness, thoracic and lumbar spine normal to inspection, no thoracic nor lumbar tenderness, thoraco-lumbar ROM normal and straight leg raise negative bilaterally Extremity: COMMON NORMALS: normal to inspection, full ROM, normal capillary refill, no joint enlargement, no clubbing, cyanosis or edema, no calf tenderness and no pedal edema Neuro: COMMON NORMALS: oriented x3 SENSORIUM/ORIENTATION: Yes alert MENINGEAL SIGNS: Yes no meningeal signs Skin: COMMON NORMALS: no rashes or lesions noted, no wounds, skin turgor normal, no jaundice, no petechiae and no mottling GENERAL SKIN EXAM: no rashes or lesions noted and turgor normal Course Vital Signs: Vital signs: Vital Signs Temperature 98.4 F 09/16/19 12:59 Pulse Rate 67 01/21/20 12:59 Respiratory Rate 16 09/16/19 12:59 Blood Pressure 126/86 09/16/19 12:59 Pulse Oximetry 96 09/16/19 12:59 [facility] - General Adult Lab Data: Labs: Lab Results 09/16/19 09/16/19 Range/Units 13:39 13:39 WBC 4.2 (4.0-10.0) 10^3/ uL RBC 2.44 L (4.1-5.3) 10^6/u L Hgb 7.4 L (11.5-15.3) g/dL Hct 24.1 L (37.0-47.0) % MCV 98.8 (81-99) fL MCH 30.3 (28.0-34.0) pg MCHC 30.7 (30.0-36.0) g/dL RDW 13.9 (12.1-15.1) % Plt Count 146 (130-400) 10^3/c mm MPV 12.1 H (7.4-10.4) fL Neut % (Auto) 70.5 % Lymph % (Auto) 17.2 % Dawes % (Auto) 6.1 % Eos % (Auto) 5.0 % Baso % (Auto) 0.7 % Neut # (Auto) 3.0 (1.8-7.7) 10^3/u L Lymph # (Auto) 0.7 L (0.8-4.8) 10^3/u L Dawes # (Auto) 0.3 (0.2-0.9) 10^3/u L Eos # (Auto) 0.2 (0.0-0.8) 10^3/u L Baso # (Auto) 0.0 (0.0-0.1) 10^3/u L Nucleated RBC % (a uto) 0 % Nucleated RBCs # 0.0 /100WBC Sodium 134 L (136-145) mmol/L Potassium 8.6 H* (3.5-5.1) mmol/L Chloride 94 L (98-107) mmol/L Carbon Dioxide 12 L (22-29) mmol/L Anion Gap 36.6 H (5-19) BUN 121 H* (6-20) mg/dL Creatinine 20.1 H* (0.5-0.9) mg/dL GFR Calculation 1.9 L (90-130) mL/min Glucose 103 (74-109) mg/dL Calcium 6.3 L (8.6-10.0) mg/Dl Total Bilirubin 0.3 (0.15-1.2) mg/dL AST 19 (0-32) U/L ALT 15 (0-33) U/L Alkaline Phosphata se 30 L (35-105) IU/L Total Protein 7.4 (6.6-8.7) g/dL Albumin 4.0 (3.5-5.2) g/dL Globulin 3.4 (1.3-4.6) g/dL Discharge Plan Discharge Patient Disposition: Home, Self-Care Clinical Impression: ESRD (end stage renal disease) on dialysis, Acute hyperkalemia Falls Qualifiers: Encounter type: initial encounter Qualified Code(s): W19.XXXA - Unspecified fall, initial encounter Condition: Stable Prescriptions: New hydrocodone-acetaminophen 5-325 mg tablet 1 tab PO Q6H PRN (Reason: pain) Qty: 14 RF: 0 No Action metoprolol succinate 25 mg tablet extended release 24 hr 50 mg PO BID PRN (Reason: Blood Pressure) RF: 0 Auryxia 210 mg iron tablet 2,000 mg PO TID RF: 0 clonidine 0.3 mg/24 hr patch weekly 0.3 mg transdermal Q7D RF: 0 nifedipine 30 mg tablet extended release 30 mg PO DAILY Qty: 30 RF: 0 metoprolol succinate 100 mg Tablet Extended Release 24 Hr 100 mg PO BEDTIME RF: 0 minoxidil 2.5 mg Tablet 2.5 mg PO DAILY RF: 0 losartan 100 mg Tablet 100 mg PO DAILY RF: 0 sofosbuvir-velpatasvir [Epclusa] 400-100 mg Tablet 1 tab PO DAILY RF: 0 RenaPlex 800 mcg- 12.5 mg Tablet 1 tab PO DAILY RF: 0 Xanax RF: 0 Referrals: Carie Man DO [Primary Care Provider] - Coding Level of Care Code ED Call Center Nurse for Chg Fwd Exam Problem Focused The documentation recorded by the Ralf martinez Kialy, accurately reflects the service I personally performed and the decisions made by , Scottie Burden DO Sep 16, 2019 13:24
[2019-09-16 13:44] LABS: Basophils % 0.7 %; Eosinophils # 0.2 10^3/uL (0.0-0.8); Hematocrit 24.1 % (37.0-47.0); Hemoglobin 7.4 g/dL (11.5-15.3); Lymphocytes # 0.7 10^3/uL (0.8-4.8); Lymphocytes % 17.2 %; Mean Corpuscular HGB Conc 30.7 g/dL (30.0-36.0); Mean Corpuscular Hemoglobin 30.3 pg (28.0-34.0); Mean Corpuscular Volume 98.8 fL (81-99); Mean Platelet Volume 12.1 fL (7.4-10.4); Monocytes # 0.3 10^3/uL (0.2-0.9); Monocytes % 6.1 %; Neutrophils % 70.5 %; Nucleated Red Blood Cells % 0 %; Platelet Count 146 10^3/cmm (130-400); Red Blood Count 2.44 10^6/uL (4.1-5.3); Red Cell Distribution Width 13.9 % (12.1-15.1); White Blood Count 4.2 10^3/uL (4.0-10.0)
[2019-09-16 14:03] LABS: Alanine Aminotransferase 15 U/L (0-33); Alkaline Phosphatase 30 IU/L (35-105); Anion Gap 36.6 (5-19); Aspartate Amino Transferase 19 U/L (0-32); Calcium 6.3 mg/Dl (8.6-10.0); Carbon Dioxide 12 mmol/L (22-29); Chloride 94 mmol/L (98-107); Globulin 3.4 g/dL (1.3-4.6); Glomerular Filtration Rate 1.9 mL/min (90-130); Glucose 103 mg/dL (74-109); Sodium 134 mmol/L (136-145); Total Bilirubin 0.3 mg/dL (0.15-1.2); Total Protein 7.4 g/dL (6.6-8.7)
[2019-09-16 14:18] LABS: Blood Urea Nitrogen 121 mg/dL (6-20); Potassium 8.6 mmol/L (3.5-5.1)
--- NOTE | 2019-09-16 14:19 | PC.NURSE ---
S[place]rick in lab reported critical labs for Potassium 8.6, BUN 121, Equity Director 20.1
--- NOTE | 2019-09-16 14:30 | XRR_ITS ---
PROCEDURE INFORMATION: Exam: XR Thoracic Spine, 3 Views Exam date and time: 09/16/2019 3:02 PM Age: 39 years old Clinical indication: Pain and injury or trauma; Fall; Initial encounter; Blunt trauma (contusions or hematomas); Pain in thoracic spine; Other: Not specified; Injury date: 09/16/19; Additional info: Falls TECHNIQUE: Imaging protocol: XR of the thoracic spine, 3 views. COMPARISON: No relevant prior studies available. FINDINGS: Vertebrae: Normal. No acute fracture. Normal alignment. Soft tissues: Metallic vascular stent is in place in the arm XR/XR thoracic spine 3V* [id number] IMPRESSION: Negative for acute dorsal spine bony abnormality
--- NOTE | 2019-09-16 14:30 | XRR_ITS ---
PROCEDURE INFORMATION: Exam: XR Lumbosacral Spine, 2 or 3 Views Exam date and time: 09/16/2019 3:02 PM Age: 39 years old Clinical indication: Pain and injury or trauma; Initial encounter; Blunt trauma (contusions or hematomas); Low back pain; Injury date: 09/16/19; Injury details: Fall today, mid back pain; Additional info: Falls TECHNIQUE: Imaging protocol: XR of the lumbosacral spine, 2 or 3 views. COMPARISON: CT Abdomen/Pelvis Renal [id number] 08/21/2019 8:38 PM FINDINGS: Vertebrae: Normal. No acute fracture. Normal alignment. Soft tissues: Scattered bilateral renal calcifications seen stable since prior XR/XR lumbar spine 2-3V* [id number] IMPRESSION: negative for acute lumbar spine bony abnormality
[2019-09-16 16:50] VITALS: BP 138/78; PULSE 63; RESP 14; O2SAT 98
== END 2019-09-16 16:55 | disposition home or self-care (01) ==
PROVIDERS: Emergency Provider Family Medicine; Family Provider Family Medicine; PCP Family Medicine
DX: I12.0 Hypertensive chronic kidney disease with stage 5 chronic kidney disease or end stage renal disease (principal); N18.6 End stage renal disease; Z99.2 Dependence on renal dialysis; E87.5 Hyperkalemia; Z86.19 Personal history of other infectious and parasitic diseases; F17.210 Nicotine dependence, cigarettes, uncomplicated
CPT/HCPCS: 36415; 72072; 72100; 80053; 85025; 99281

== ENCOUNTER 2019-10-04 22:37 | Emergency (ER) | payer OTHER, SELFPAY ==
[2019-10-04] VITALS (7 sets, daily range): BP systolic 133; BP diastolic 82; PULSE 78–80; RESP 12–18; TEMP 37.1; O2SAT 97–100; BMI 13.1
--- NOTE | 2019-10-04 22:41 | ED_ITS ---
Entered by Carissa Hawley, acting as scribe for Ismael Mccoy DO HPI - Nausea/Vomiting/Diarrhea General: Chief complaint: Nausea/Vomiting/Diarrhea Stated complaint: n/v Time Seen by Provider: 10/04/19 22:40 Source: EMS Mode of arrival: EMS Limitations: no limitations History of Present Illness: HPI Narrative: 39 yo f came to the er by [facility] for nausea and vomiting. Onset was today. Pt states that she is having pain all over her body but is chronic. Pt is on hospice. PT has not been able to eat or drink since last sunday. Pt states that she has also had diarrhea, chills and blood in urine. MD elicited complaint: nausea, vomiting and abdominal pain Onset (ago): day(s) (4 days ago) Associated nausea: Yes Associated abdominal pain: No Severity: mild Exacerbating factors: none Relieving factors: none Associated symtoms: Reports fevers/chills and nausea Review of Systems Const: Reports: fever, chills and body aches Eyes: Denies: blurry vision ENMT: Denies: throat pain or dental pain GI: Reports: nausea, vomiting and diarrhea : Reports: blood in urine PFSH ED PFSH: Statuses (acute, chronic, etc) shown below reflect problem list status as previously entered and may not be historically accurate Medical History Anemia (Chronic) Chronic hepatitis C (Resolved) sees Dg Depression (Resolved) ESRD (end stage renal disease) on dialysis (Acute) -patient has hx of ESRD secondary to PCKD, is dialysis-dependent (HD on MWF); access is AV fistula (LUE) -has hx of non-compliance with dialysis sessions -Nephrology consulted as will likely need HD due to noted hyperkalemia, evidence of fluid overload on imaging, dyspnea, higher than baseline oxygen requirement. Patient declined HD yesterday, scheduled for today which she has again declined. -continue to monitor renal function and electrolytes -avoid nephrotoxins and renally dose meds -renal diet as tolerated -Anuric at baseline Hemodialysis access, AV graft (Acute) Left upper extremity Hypertension (Acute) -had hypertensive urgency in ED; BP now improved -continue to monitor vital signs Polycystic kidney disease (Acute) Polysubstance abuse (Resolved) Renal osteodystrophy (Acute) Staphylococcus aureus bacteremia (Acute) MSSA bacteremia 08/14-09/15 Thrombocytopenia (Acute) Surgical History S/P dialysis catheter insertion (Acute Unknown) S/P tooth extraction (Acute) Family History Other Diabetes Hypertension Polycystic kidney disease Social History Smoking and tobacco status: current every day smoker Alcohol intake: never Desire information about substance/drug rehabilitation?: No Counseling given: Yes Caregiver/support person: Yes Household members: family Marital status: Single Physical Exam Const: GENERAL APPEARANCE: well developed ORIENTATION/CONSCIOUSNESS: Yes oriented to person, Yes oriented to place and Yes oriented to time HENMT: COMMON NORMALS: normocephalic, external ears normal and external nose normal HEAD & SCALP: normocephalic; no scalp tenderness FACE & SINUS: normal facial exam NOSE: external nose normal and no nasal discharge EXTERNAL EAR: Yes external ears normal THROAT: posterior oropharynx normal Eye: COMMON NORMALS: PERRL, EOMs intact bilaterally and conjunctivae normal EYELID: eyelids normal CONJUNCTIVA: Yes conjunctivae normal PUPIL: Yes PERRL Chest: COMMONS NORMALS: inspection of chest normal CHEST: No tenderness Resp: COMMON NORMALS: clear to auscultation bilaterally EFFORT & INSPECTIO N: No tachypneic, No respiratory distress, No retractions, No uses accessory muscles and No tracheal deviation AUSCULTATION: clear to auscultation bilaterally, no rhonchi, no wheezes and lung sounds not diminished Cardio: COMMON NORMALS: regular rate and regular rhythm RATE: regular rate RHYTHM: regular rhythm HEART SOUNDS: no murmurs PERIPHERAL PULSES: radial pulses present GI: INSPECTION: Yes normal to inspection and No abdominal distension AUSCULTATION: No hyperactive bowel sounds and No hypoactive bowel sounds PALPATION: Yes tender Details: LUQ, No guarding and No rigid PERCUSSION: no dullness to percussion and no tympanic to percussion : COMMON NORMALS: Yes no CVA tenderness BLADDER/KIDNEY EXAM: Yes no CVA tenderness Back/Pelvis: COMMON NORMALS: no CVA tenderness Neuro: SENSORIUM/ORIENTATION: Yes oriented to person, Yes oriented to place and Yes oriented to time Psych: COMMON NORMALS: mental status grossly normal Skin: COMMON NORMALS: no rashes or lesions noted GENERAL SKIN EXAM: no rashes or lesions noted Course Vital Signs: Vital signs: Vital Signs Temperature 98.8 F 10/04/19 22:38 Pulse Rate 76 10/05/19 04:26 Respiratory Rate 17 10/05/19 04:26 Blood Pressure 134/86 10/05/19 04:26 Pulse Oximetry 99 10/05/19 04:26 MDM - Nausea/Vomiting/Diarrhea MDM Narrative: Medical decision making narrative: 39-year-old patient with end-stage renal disease, who had stopped dialysis and is on hospice currently. She presents with body aches, chills, and not holding food down for the past few days. She says she is only been able to hold down sips of water. She improved with 1.5 L of fluid. Her hemoglobin is 7. Her potassium is only 5.3. Her BUN and creatinine however are very high. She was given the option of admission. She would like to go home. She goes home on her home medications of morphine 15 mg, which she had run out of, and some promethazine. Lab Data: Labs: Lab Results 10/04/19 10/04/19 Range/Units 22:54 23:46 WBC 4.1 (4.0-10.0) 10^3/ uL RBC 2.50 L (4.1-5.3) 10^6/u L Hgb 7.3 L (11.5-15.3) g/dL Hct 23.7 L (37.0-47.0) % MCV 94.8 (81-99) fL MCH 29.2 (28.0-34.0) pg MCHC 30.8 (30.0-36.0) g/dL RDW 13.3 (12.1-15.1) % Plt Count 82 L (130-400) 10^3/c mm MPV 13.6 H (7.4-10.4) fL Neut % (Auto) 71.2 % Lymph % (Auto) 15.8 % [place] % (Auto) 8.5 % Eos % (Auto) 4.1 % Baso % (Auto) 0.2 % Neut # (Auto) 2.9 (1.8-7.7) 10^3/u L Lymph # (Auto) 0.7 L (0.8-4.8) 10^3/u L [place] # (Auto) 0.4 (0.2-0.9) 10^3/u L Eos # (Auto) 0.2 (0.0-0.8) 10^3/u L Baso # (Auto) 0.0 (0.0-0.1) 10^3/u L Nucleated RBC % (a uto) 0 % Nucleated RBCs # 0.0 /100WBC Sodium 136 (136-145) mmol/L Potassium 5.3 H (3.5-5.1) mmol/L Chloride 95 L (98-107) mmol/L Carbon Dioxide 14 L (22-29) mmol/L Anion Gap 32.3 H (5-19) BUN 145 H* (6-20) mg/dL Creatinine 23.4 H* (0.5-0.9) mg/dL GFR Calculation 1.6 L (90-130) mL/min Glucose 108 (65-115) mg/dL Calcium 4.1 L* (8.5-10.5) mg/dL Phosphorus 13.3 H* (2.5-4.5) mg/dL Magnesium 2.5 H (1.7-2.3) mg/dL Total Bilirubin 0.2 (0.15-1.2) mg/dL AST 25 (0-32) U/L ALT 13 (0-33) U/L Alkaline Phosphata se 33 L (35-105) IU/L C-Reactive Protein 1.3 (0.0-4.9) mg/L Total Protein 6.8 (6.6-8.7) g/dL Albumin 3.8 (3.5-5.2) g/dL Globulin 3.0 (1.3-4.6) g/dL Discharge Plan Discharge Patient Disposition: Hospice - Home Clinical Impression: ESRD (end stage renal disease) on dialysis Condition: Stable Prescriptions: New morphine 15 mg tablet 15 mg PO Q6H Qty: 7 RF: 0 promethazine 25 mg tablet 25 mg PO Q6H Qty: 7 RF: 0 No Action metoprolol succinate 25 mg tablet extended release 24 hr 50 mg PO BID PRN (Reason: Blood Pressure) RF: 0 Auryxia 210 mg iron tablet 2,000 mg PO TID RF: 0 clonidine 0.3 mg/24 hr patch weekly 0.3 mg transdermal Q7D RF: 0 nifedipine 30 mg tablet extended release 30 mg PO DAILY Qty: 30 RF: 0 metoprolol succinate 100 mg Tablet Extended Release 24 Hr 100 mg PO BEDTIME RF: 0 minoxidil 2.5 mg Tablet 2.5 mg PO DAILY RF: 0 losartan 100 mg Tablet 100 mg PO DAILY RF: 0 sofosbuvir-velpatasvir [Epclusa] 400-100 mg Tablet 1 tab PO DAILY RF: 0 RenaPlex 800 mcg- 12.5 mg Tablet 1 tab PO DAILY RF: 0 Xanax RF: 0 hydrocodone-acetaminophen 5-325 mg tablet 1 tab PO Q6H PRN (Reason: pain) Qty: 14 RF: 0 Discharge Orders: Discharge Order (Routine); Ordered 10/05/19 Ordered By: Ismael Mccoy Referrals: Carie Man DO [Primary Care Provider] - 1-3 days Discharge Diet: Advance as tolerated and Clear Liquid Activity Restrictions/Additional Instructions: Return for fever greater than 100, any other problems or concerns. Coding Level of Care Code ED Transporter Radiology for Chg Fwd The documentation recorded by the Chandan martinez Stephanie Lyn, accurately reflects the service I personally performed and the decisions made by Darius michael Jeremy John, DO Oct 04, 2019 22:37
--- NOTE | 2019-10-04 22:50 | XR_ITS ---
WS: [id number] ONE VIEW CHEST HISTORY: 39 years old Female with vomiting AP upright chest comparison 09/03/2019 FINDINGS: No pneumothorax, pleural effusion, consolidation/atelectasis. Cardiomegaly and/or pericardial effusio n appear increased. No subdiaphragmatic free air. Osseous structures intact. Incompletely visualized left upper extremity endovascular graft. XR/XR chest 1V portable [id number] IMPRESSION: 1. Apparent mild increased cardiomegaly and/or pericardial effusion. May be paul hnical. No evidence of interval pulmonary edema or effusion to suggest acute CH F and/or fluid overload. Echocardiogram correlation needed. 2. No definite acute cardiopulmonary findings.
[2019-10-04] MEDS: sodium chloride 0.9% 1,000 ML 999 ML IV (23:07)
[2019-10-04 23:11] LABS: Basophils % 0.2 %; Eosinophils # 0.2 10^3/uL (0.0-0.8); Eosinophils % 4.1 %; Hematocrit 23.7 % (37.0-47.0); Hemoglobin 7.3 g/dL (11.5-15.3); Lymphocytes # 0.7 10^3/uL (0.8-4.8); Lymphocytes % 15.8 %; Mean Corpuscular HGB Conc 30.8 g/dL (30.0-36.0); Mean Corpuscular Hemoglobin 29.2 pg (28.0-34.0); Mean Corpuscular Volume 94.8 fL (81-99); Mean Platelet Volume 13.6 fL (7.4-10.4); Monocytes # 0.4 10^3/uL (0.2-0.9); Monocytes % 8.5 %; Neutrophils # 2.9 10^3/uL (1.8-7.7); Neutrophils % 71.2 %; Nucleated Red Blood Cells % 0 %; Platelet Count 82 10^3/cmm (130-400); Red Cell Distribution Width 13.3 % (12.1-15.1); White Blood Count 4.1 10^3/uL (4.0-10.0)
[2019-10-05] VITALS (27 sets, daily range): BP systolic 106–134; BP diastolic 73–92; PULSE 76–86; RESP 10–18; O2SAT 92–99
[2019-10-05 00:15] LABS: Alanine Aminotransferase 13 U/L (0-33); Albumin Level 3.8 g/dL (3.5-5.2); Alkaline Phosphatase 33 IU/L (35-105); Anion Gap 32.3 (5-19); Aspartate Amino Transferase 25 U/L (0-32); C Reactive Protein 1.3 mg/L (0.0-4.9); Carbon Dioxide 14 mmol/L (22-29); Chloride 95 mmol/L (98-107); Creatinine Clr Calc Pharmacy 1.7273; Glomerular Filtration Rate 1.6 mL/min (90-130); Glucose 108 mg/dL (65-115); Magnesium 2.5 mg/dL (1.7-2.3); Potassium 5.3 mmol/L (3.5-5.1); Sodium 136 mmol/L (136-145); Total Bilirubin 0.2 mg/dL (0.15-1.2); Total Protein 6.8 g/dL (6.6-8.7)
[2019-10-05 00:22] LABS: Blood Urea Nitrogen 145 mg/dL (6-20)
[2019-10-05 00:23] LABS: Calcium 4.1 mg/dL (8.5-10.5); Phosphorus 13.3 mg/dL (2.5-4.5)
[2019-10-05] MEDS: morphine 4 mg/mL SDV 1 mL IVP (00:28)
[2019-10-05] MEDS: sodium chloride 0.9% 500 ML IV (01:18)
[2019-10-05] MEDS: promethazine 25 mg Tablet PO (04:24)
[2019-10-05] MEDS: morphine IR 15 mg Tablet PO (04:24)
--- NOTE | 2019-10-05 04:30 | PC.NURSE ---
confirmation number [id number]
--- NOTE | 2019-10-05 07:03 | PC.NURSE ---
Report from [place] PATEL. Care transferred to Carie PATEL. Pt waiting for ride back home.
== END 2019-10-05 07:38 | disposition hospice, home (50) ==
PROVIDERS: Emergency Provider Emergency Medicine; Family Provider Family Medicine; PCP Family Medicine
DX: I12.0 Hypertensive chronic kidney disease with stage 5 chronic kidney disease or end stage renal disease (principal); N18.6 End stage renal disease; Q61.3 Polycystic kidney, unspecified; F17.200 Nicotine dependence, unspecified, uncomplicated; Z91.15 Patient's noncompliance with renal dialysis; E87.5 Hyperkalemia; I16.0 Hypertensive urgency; Z86.14 Personal history of Methicillin resistant Staphylococcus aureus infection; N25.0 Renal osteodystrophy; Z99.2 Dependence on renal dialysis
CPT/HCPCS: 71045; 80053; 83735; 84100; 85025; 86140; 96360; 96361; 96374; 96375; 99284; J2270; J7030; J7040; Q0169

== ENCOUNTER 2019-10-11 08:10 | Emergency (ER) | payer OTHER, SELFPAY ==
[2019-10-11 08:11] VITALS: BMI 14.7
[2019-10-11 08:14] VITALS: BP 134/90; PULSE 78; RESP 16; TEMP 36.6; O2SAT 100
--- NOTE | 2019-10-11 08:25 | W.ED.GENADLT ---
Documented by User: MIRYAM Parra 10/11/19 14:59 HPI - General Adult General: Chief complaint: General Medical Stated complaint: WEAKNESS; NOSE BLEED Time Seen by Provider: 10/11/19 08:14 History of Present Illness: HPI narrative: Patient is a 39-year-old female comes the ED with nausea, vomiting generalized weakness and recurrent nosebleeds. Patient is currently on hospice and has end-stage renal disease and stopped dialysis treatment. Last dialysis treatment was around mid July 2019. She also has a past medical history of hypertension and hepatitis. Patient states her nausea and vomiting have occurred for the last 2 weeks. She states she can't keep any food down, but she is usually keep down a little bit of liquids by mouth. Patient states she hurts all over and is actually on morphine at home due to being on hospice. She also is complaining that she's had multiple nosebleeds daily for the past several days. She denies any trauma or scratching at her nose to cause a bleed. Nosebleeds just occur out of nowhere and are not provoked. They then stop on their own and reoccur several hours later. Denies fever, chest pain, bladder or bowel symptoms. Associated symptoms: Reports dyspnea, nausea and vomiting; Deny chest pain, headache(s), rash or palpitations Review of Systems General: Reports: 10 or more systems reviewed and unremarkable except in HPI and below Const: Denies: fever, chills or fatigue Eyes: Denies: change in vision or eye discomfort ENMT: Reports: nose bleeds; Denies: throat pain, painful swallowing, nasal discharge or nasal congestion Card: Denies: chest pain, palpitations, edema, swelling of feet/ankles, shortness of breath on exertion or shortness of breath when lying down Resp: Reports: shortness of breath; Denies: productive cough or non-productive cough GI: Reports: abdominal pain, nausea and vomiting; Denies: diarrhea, constipation or blood in stool : Denies: flank pain, painful urination or blood in urine Musc: Denies: neck pain, back pain or extremity swelling Skin/Breast: Denies: rash or new lesion Neuro: Denies: headache, numbness in extremities or weakness in extremities [facility] PFSH: Medical History Anemia Chronic hepatitis C sees Conte Depression ESRD (end stage renal disease) on dialysis -patient has hx of ESRD secondary to PCKD, is dialysis-dependent (HD on MWF); access is AV fistula (LUE) -has hx of non-compliance with dialysis sessions -Nephrology consulted as will likely need HD due to noted hyperkalemia, evidence of fluid overload on imaging, dyspnea, higher than baseline oxygen requirement. Patient declined HD yesterday, scheduled for today which she has again declined. -continue to monitor renal function and electrolytes -avoid nephrotoxins and renally dose meds -renal diet as tolerated -Anuric at baseline Hemodialysis access, AV graft Left upper extremity Hypertension -had hypertensive urgency in ED; BP now improved -continue to monitor vital signs Polycystic kidney disease Polysubstance abuse Renal osteodystrophy Staphylococcus aureus bacteremia MSSA bacteremia 08/14-09/15 Thrombocytopenia Surgical History S/P dialysis catheter insertion (Unknown) S/P tooth extraction Family History Other Diabetes Hypertension Polycystic kidney disease Social History Smoking and tobacco status: current every day smoker Alcohol intake: never Desire information about substance/drug rehabilitation?: No Counseling given: Yes Caregiver/support person: Yes Household members: family Marital status: Single Physical Exam Narrative: EXAM NARRATIVE: Patient is a 31-year-old female who looks on well while here in the ED. She had trouble keeping her eyes open during history and physical exam. Const: COMMON NORMALS: oriented x3 HENMT: COMMON NORMALS: normocephalic and external nose normal HEAD & SCALP: normocephalic NOSE: external nose normal, mucous membranes and turbinates abnormal (dry) and epistaxis (dried blood-no active bleeding) on the right MOUTH: moist mucous membranes abnormal Details: parched THROAT: posterior oropharynx normal and uvula midline Eye: COMMON NORMALS: PERRL and EOMs intact bilaterally PUPIL: Yes PERRL Neck/C-Spine: COMMON NORMALS: supple GENERAL: Yes normal visual inspection Resp: COMMON NORMALS: normal respiratory effort, no retractions and no use of accessory muscles AUSCULTATION: diminished lung sounds (mid lung to base) bilateral Cardio: COMMON NORMALS: regular rate, regular rhythm, S1 normal heart sound, S2 normal heart sound, no gallops, no clicks, no murmurs and peripheral pulses 2+ throughout RATE: regular rate RHYTHM: regular rhythm HEART SOUNDS: S1 normal, S2 normal and murmur systolic Intensity: III/ PERIPHERAL PULSES: pulses 2+ throughout GI: COMMON NORMALS: normal to inspection, nondistended, normoactive bowel sounds, soft to palpation, non-tender and no masses PALPATION: Yes soft : COMMON NORMALS: Yes no CVA tenderness BLADDER/KIDNEY EXAM: Yes no CVA tenderness Back/Pelvis: COMMON NORMALS: no CVA tenderness Extremity: COMMON NORMALS: normal to inspection and no pedal edema Neuro: COMMON NORMALS: oriented x3 and moves all extremities Course Reevaluation(s): Reevaluation #1: Patient said her pain was doing better, but she was still having nausea. She also had a nosebleed and the nurse had put a nasal clamp on her nose to stop the bleeding. Time: 10:00 Vital Signs: Vital signs: Vital Signs Temperature 97.8 F 10/11/19 08:14 Pulse Rate 79 10/11/19 11:28 Respiratory Rate 16 10/11/19 11:28 Blood Pressure 134/91 10/11/19 11:28 Pulse Oximetry 98 10/11/19 11:28 MDM - General Adult Lab Data: Attestation: I reviewed the patient's lab results. Labs: Lab Results 10/11/19 10/11/19 10/11/19 Range/Units 08:25 08:25 08:25 WBC 5.1 (4.0-10.0) 10^3/ uL RBC 2.58 L (4.1-5.3) 10^6/u L Hgb 7.4 L (11.5-15.3) g/dL Hct 23.6 L (37.0-47.0) % MCV 91.5 (81-99) fL MCH 28.7 (28.0-34.0) pg MCHC 31.4 (30.0-36.0) g/dL RDW 13.2 (12.1-15.1) % Plt Count 90 L (130-400) 10^3/c mm MPV 12.5 H (7.4-10.4) fL Neut % (Auto) 67.5 % Lymph % (Auto) 17.3 % Tripp % (Auto) 11.9 % Eos % (Auto) 2.9 % Baso % (Auto) 0.2 % Neut # (Auto) 3.5 (1.8-7.7) 10^3/u L Lymph # (Auto) 0.9 (0.8-4.8) 10^3/u L Tripp # (Auto) 0.6 (0.2-0.9) 10^3/u L Eos # (Auto) 0.2 (0.0-0.8) 10^3/u L Baso # (Auto) 0.0 (0.0-0.1) 10^3/u L Nucleated RBC % (a uto) 0 % Nucleated RBCs # 0.0 /100WBC PT 15.60 H (10.5-13.3) SECO NDS INR 1.20 (0.8-1.2) APTT 38.3 H (23.9-36.7) SECO NDS Sodium 136 (136-145) mmol/L Potassium 5.1 (3.5-5.1) mmol/L Chloride 92 L (98-107) mmol/L Carbon Dioxide 16 L (22-29) mmol/L Anion Gap 33.1 H (5-19) BUN 141 H* (6-20) mg/dL Creatinine 21.9 H* (0.5-0.9) mg/dL GFR Calculation 1.8 L (90-130) mL/min Glucose 109 (65-115) mg/dL Calcium 4.2 L* (8.5-10.5) mg/dL Total Bilirubin 0.3 (0.15-1.2) mg/dL AST 29 (0-32) U/L ALT 15 (0-33) U/L Alkaline Phosphata se 36 (35-105) IU/L Total Protein 7.7 (6.6-8.7) g/dL Albumin 4.5 (3.5-5.2) g/dL Globulin 3.2 (1.3-4.6) g/dL Urine Color (Yellow) Urine Appearance (CLEAR) Urine pH (5-7) Ur Specific Gravit y (1.005-1.030) Urine Protein (Negative) Urine Glucose (UA) (Normal) Urine Ketones (Negative) Urine Occult Blood (Negative) Urine Nitrate (Negative) Urine Bilirubin (NEGATIVE) Urine Urobilinogen (Negative) mg/dL Ur Leukocyte Stacy ase (Negative) Urine RBC (0-2) /hpf Urine WBC (0-5) /hpf Ur Squamous Epith Cells (0-5) Ur Transition Epit h Cell /hpf Urine Bacteria (NONE) 10/11/19 Range/Units 09:04 WBC (4.0-10.0) 10^3/ uL RBC (4.1-5.3) 10^6/u L Hgb (11.5-15.3) g/dL Hct (37.0-47.0) % MCV (81-99) fL MCH (28.0-34.0) pg MCHC (30.0-36.0) g/dL RDW (12.1-15.1) % Plt Count (130-400) 10^3/c mm MPV (7.4-10.4) fL Neut % (Auto) % Lymph % (Auto) % Tripp % (Auto) % Eos % (Auto) % Baso % (Auto) % Neut # (Auto) (1.8-7.7) 10^3/u L Lymph # (Auto) (0.8-4.8) 10^3/u L Tripp # (Auto) (0.2-0.9) 10^3/u L Eos # (Auto) (0.0-0.8) 10^3/u L Baso # (Auto) (0.0-0.1) 10^3/u L Nucleated RBC % (a uto) % Nucleated RBCs # /100WBC PT (10.5-13.3) SECO NDS INR (0.8-1.2) APTT (23.9-36.7) SECO NDS Sodium (136-145) mmol/L Potassium (3.5-5.1) mmol/L Chloride (98-107) mmol/L Carbon Dioxide (22-29) mmol/L Anion Gap (5-19) BUN (6-20) mg/dL Creatinine (0.5-0.9) mg/dL GFR Calculation (90-130) mL/min Glucose (65-115) mg/dL Calcium (8.5-10.5) mg/dL Total Bilirubin (0.15-1.2) mg/dL AST (0-32) U/L ALT (0-33) U/L Alkaline Phosphata se (35-105) IU/L Total Protein (6.6-8.7) g/dL Albumin (3.5-5.2) g/dL Globulin (1.3-4.6) g/dL Urine Color Yellow (Yellow) Urine Appearance Hazy A (CLEAR) Urine pH 6 (5-7) Ur Specific Gravit y 1.010 (1.005-1.030) Urine Protein 3+ H (Negative) Urine Glucose (UA) 1+ (Normal) Urine Ketones Negative (Negative) Urine Occult Blood 3+ H (Negative) Urine Nitrate Negative (Negative) Urine Bilirubin Neg (NEGATIVE) Urine Urobilinogen Norm (Negative) mg/dL Ur Leukocyte Stacy ase 2+ H (Negative) Urine RBC 40-50 H (0-2) /hpf Urine WBC >100 H (0-5) /hpf Ur Squamous Epith Cells 25-40 H (0-5) Ur Transition Epit h Cell 5-10 /hpf Urine Bacteria 2+ H (NONE) Discharge Plan Discharge Patient Disposition: Home, Self-Care Clinical Impression: End-stage renal disease (ESRD), Hospice care patient Condition: Stable Prescriptions: No Action Auryxia 210 mg iron tablet See Rx Instructions .ROUTE .COMPLEX RF: 0 clonidine 0.3 mg/24 hr patch weekly 0.3 mg transdermal Q7D RF: 0 nifedipine 30 mg tablet extended release 30 mg PO DAILY Qty: 30 RF: 0 metoprolol succinate 100 mg Tablet Extended Release 24 Hr 100 mg PO BEDTIME RF: 0 losartan 100 mg Tablet 100 mg PO DAILY RF: 0 sofosbuvir-velpatasvir [Epclusa] 400-100 mg Tablet 1 tab PO DAILY RF: 0 Xanax 0.25 mg PO TID PRN (Reason: unknown) RF: 0 Excedrin Migraine 250-250-65 mg Tablet 1 tab PO PRN RF: 0 promethazine 25 mg tablet 25 mg PO Q6H RF: 0 morphine 15 mg tablet 15 - 30 mg PO Q4H PRN (Reason: Pain) RF: 0 minoxidil 2.5 mg tablet See Rx Instructions .ROUTE .COMPLEX RF: 0 metoprolol tartrate 25 mg tablet See Rx Instructions .ROUTE .COMPLEX RF: 0 Discharge Orders: Discharge Order (Routine); Ordered 10/11/19 Ordered By: Nickolas Jamison Referrals: Carie Man DO [Primary Care Provider] - Discharge Diet: Regular Discharge Activity: Resume usual activity Patient Instructions: End-Stage Kidney Disease (ED) Activity Restrictions/Additional Instructions: Follow-up with your PCP and hospice intensive care nurse to discuss possible changes in care and going to a facility. Continue taking home meds as prescribed. Discharge Date/Time: 10/11/19 11:28 Coding Level of Care Code ED Emergency Room Physician Assistant for Chg Fwd Exam Comprehensive Documented by User: Keith Giles DO 10/11/19 15:21 HPI - General Adult General: Chief complaint: General Medical Stated complaint: WEAKNESS; NOSE BLEED Time Seen by Provider: 10/11/19 08:14 PFSH ED PFSH: Medical History Anemia Chronic hepatitis C sees Conte Depression ESRD (end stage renal disease) on dialysis -patient has hx of ESRD secondary to PCKD, is dialysis-dependent (HD on MWF); access is AV fistula (LUE) -has hx of non-compliance with dialysis sessions -Nephrology consulted as will likely need HD due to noted hyperkalemia, evidence of fluid overload on imaging, dyspnea, higher than baseline oxygen requirement. Patient declined HD yesterday, scheduled for today which she has again declined. -continue to monitor renal function and electrolytes -avoid nephrotoxins and renally dose meds -renal diet as tolerated -Anuric at baseline Hemodialysis access, AV graft Left upper extremity Hypertension -had hypertensive urgency in ED; BP now improved -continue to monitor vital signs Polycystic kidney disease Polysubstance abuse Renal osteodystrophy Staphylococcus aureus bacteremia MSSA bacteremia 08/14-09/15 Thrombocytopenia Surgical History S/P dialysis catheter insertion (Unknown) S/P tooth extraction Family History Other Diabetes Hypertension Polycystic kidney disease Social History Smoking and tobacco status: current every day smoker Alcohol intake: never Desire information about substance/drug rehabilitation?: No Counseling given: Yes Caregiver/support person: Yes Household members: family Marital status: Single Course ED course: I supervised care provided to Ruby Cortés by the PURIFICATION OPERATOR/PA. Vital Signs: Vital signs: Vital Signs Temperature 97.8 F 10/11/19 08:14 Pulse Rate 79 10/11/19 11:28 Respiratory Rate 16 10/11/19 11:28 Blood Pressure 134/91 10/11/19 11:28 Pulse Oximetry 98 10/11/19 11:28 MDM - General Adult Lab Data: Labs: Lab Results 10/11/19 10/11/19 10/11/19 Range/Units 08:25 08:25 08:25 WBC 5.1 (4.0-10.0) 10^3/ uL RBC 2.58 L (4.1-5.3) 10^6/u L Hgb 7.4 L (11.5-15.3) g/dL Hct 23.6 L (37.0-47.0) % MCV 91.5 (81-99) fL MCH 28.7 (28.0-34.0) pg MCHC 31.4 (30.0-36.0) g/dL RDW 13.2 (12.1-15.1) % Plt Count 90 L (130-400) 10^3/c mm MPV 12.5 H (7.4-10.4) fL Neut % (Auto) 67.5 % Lymph % (Auto) 17.3 % Tripp % (Auto) 11.9 % Eos % (Auto) 2.9 % Baso % (Auto) 0.2 % Neut # (Auto) 3.5 (1.8-7.7) 10^3/u L Lymph # (Auto) 0.9 (0.8-4.8) 10^3/u L Tripp # (Auto) 0.6 (0.2-0.9) 10^3/u L Eos # (Auto) 0.2 (0.0-0.8) 10^3/u L Baso # (Auto) 0.0 (0.0-0.1) 10^3/u L Nucleated RBC % (a uto) 0 % Nucleated RBCs # 0.0 /100WBC PT 15.60 H (10.5-13.3) SECO NDS INR 1.20 (0.8-1.2) APTT 38.3 H (23.9-36.7) SECO NDS Sodium 136 (136-145) mmol/L Potassium 5.1 (3.5-5.1) mmol/L Chloride 92 L (98-107) mmol/L Carbon Dioxide 16 L (22-29) mmol/L Anion Gap 33.1 H (5-19) BUN 141 H* (6-20) mg/dL Creatinine 21.9 H* (0.5-0.9) mg/dL GFR Calculation 1.8 L (90-130) mL/min Glucose 109 (65-115) mg/dL Calcium 4.2 L* (8.5-10.5) mg/dL Total Bilirubin 0.3 (0.15-1.2) mg/dL AST 29 (0-32) U/L ALT 15 (0-33) U/L Alkaline Phosphata se 36 (35-105) IU/L Total Protein 7.7 (6.6-8.7) g/dL Albumin 4.5 (3.5-5.2) g/dL Globulin 3.2 (1.3-4.6) g/dL Urine Color (Yellow) Urine Appearance (CLEAR) Urine pH (5-7) Ur Specific Gravit y (1.005-1.030) Urine Protein (Negative) Urine Glucose (UA) (Normal) Urine Ketones (Negative) Urine Occult Blood (Negative) Urine Nitrate (Negative) Urine Bilirubin (NEGATIVE) Urine Urobilinogen (Negative) mg/dL Ur Leukocyte Stacy ase (Negative) Urine RBC (0-2) /hpf Urine WBC (0-5) /hpf Ur Squamous Epith Cells (0-5) Ur Transition Epit h Cell /hpf Urine Bacteria (NONE) 10/11/19 Range/Units 09:04 WBC (4.0-10.0) 10^3/ uL RBC (4.1-5.3) 10^6/u L Hgb (11.5-15.3) g/dL Hct (37.0-47.0) % MCV (81-99) fL MCH (28.0-34.0) pg MCHC (30.0-36.0) g/dL RDW (12.1-15.1) % Plt Count (130-400) 10^3/c mm MPV (7.4-10.4) fL Neut % (Auto) % Lymph % (Auto) % Tripp % (Auto) % Eos % (Auto) % Baso % (Auto) % Neut # (Auto) (1.8-7.7) 10^3/u L Lymph # (Auto) (0.8-4.8) 10^3/u L Tripp # (Auto) (0.2-0.9) 10^3/u L Eos # (Auto) (0.0-0.8) 10^3/u L Baso # (Auto) (0.0-0.1) 10^3/u L Nucleated RBC % (a uto) % Nucleated RBCs # /100WBC PT (10.5-13.3) SECO NDS INR (0.8-1.2) APTT (23.9-36.7) SECO NDS Sodium (136-145) mmol/L Potassium (3.5-5.1) mmol/L Chloride (98-107) mmol/L Carbon Dioxide (22-29) mmol/L Anion Gap (5-19) BUN (6-20) mg/dL Creatinine (0.5-0.9) mg/dL GFR Calculation (90-130) mL/min Glucose (65-115) mg/dL Calcium (8.5-10.5) mg/dL Total Bilirubin (0.15-1.2) mg/dL AST (0-32) U/L ALT (0-33) U/L Alkaline Phosphata se (35-105) IU/L Total Protein (6.6-8.7) g/dL Albumin (3.5-5.2) g/dL Globulin (1.3-4.6) g/dL Urine Color Yellow (Yellow) Urine Appearance Hazy A (CLEAR) Urine pH 6 (5-7) Ur Specific Gravit y 1.010 (1.005-1.030) Urine Protein 3+ H (Negative) Urine Glucose (UA) 1+ (Normal) Urine Ketones Negative (Negative) Urine Occult Blood 3+ H (Negative) Urine Nitrate Negative (Negative) Urine Bilirubin Neg (NEGATIVE) Urine Urobilinogen Norm (Negative) mg/dL Ur Leukocyte Stacy ase 2+ H (Negative) Urine RBC 40-50 H (0-2) /hpf Urine WBC >100 H (0-5) /hpf Ur Squamous Epith Cells 25-40 H (0-5) Ur Transition Epit h Cell 5-10 /hpf Urine Bacteria 2+ H (NONE) Discharge Plan Discharge Patient Disposition: Home, Self-Care Clinical Impression: End-stage renal disease (ESRD), Hospice care patient Condition: Stable Prescriptions: No Action Auryxia 210 mg iron tablet See Rx Instructions .ROUTE .COMPLEX RF: 0 clonidine 0.3 mg/24 hr patch weekly 0.3 mg transdermal Q7D RF: 0 nifedipine 30 mg tablet extended release 30 mg PO DAILY Qty: 30 RF: 0 metoprolol succinate 100 mg Tablet Extended Release 24 Hr 100 mg PO BEDTIME RF: 0 losartan 100 mg Tablet 100 mg PO DAILY RF: 0 sofosbuvir-velpatasvir [Epclusa] 400-100 mg Tablet 1 tab PO DAILY RF: 0 Xanax 0.25 mg PO TID PRN (Reason: unknown) RF: 0 Excedrin Migraine 250-250-65 mg Tablet 1 tab PO PRN RF: 0 promethazine 25 mg tablet 25 mg PO Q6H RF: 0 morphine 15 mg tablet 15 - 30 mg PO Q4H PRN (Reason: Pain) RF: 0 minoxidil 2.5 mg tablet See Rx Instructions .ROUTE .COMPLEX RF: 0 metoprolol tartrate 25 mg tablet See Rx Instructions .ROUTE .COMPLEX RF: 0 Discharge Orders: Discharge Order (Routine); Ordered 10/11/19 Ordered By: Nickolas Jamison Referrals: Carie Man DO [Primary Care Provider] - Discharge Diet: Regular Discharge Activity: Resume usual activity Patient Instructions: End-Stage Kidney Disease (ED) Activity Restrictions/Additional Instructions: Follow-up with your PCP and hospice intensive care nurse to discuss possible changes in care and going to a facility. Continue taking home meds as prescribed. Discharge Date/Time: 10/11/19 11:28 Coding Level of Care Code ED Emergency Room Physician Assistant for Chg Fwd Exam Comprehensive
[2019-10-11 08:32] LABS: Basophils % 0.2 %; Eosinophils # 0.2 10^3/uL (0.0-0.8); Eosinophils % 2.9 %; Hematocrit 23.6 % (37.0-47.0); Hemoglobin 7.4 g/dL (11.5-15.3); Lymphocytes # 0.9 10^3/uL (0.8-4.8); Lymphocytes % 17.3 %; Mean Corpuscular HGB Conc 31.4 g/dL (30.0-36.0); Mean Corpuscular Hemoglobin 28.7 pg (28.0-34.0); Mean Corpuscular Volume 91.5 fL (81-99); Mean Platelet Volume 12.5 fL (7.4-10.4); Monocytes # 0.6 10^3/uL (0.2-0.9); Monocytes % 11.9 %; Neutrophils # 3.5 10^3/uL (1.8-7.7); Neutrophils % 67.5 %; Nucleated Red Blood Cells % 0 %; Platelet Count 90 10^3/cmm (130-400); Red Blood Count 2.58 10^6/uL (4.1-5.3); Red Cell Distribution Width 13.2 % (12.1-15.1); White Blood Count 5.1 10^3/uL (4.0-10.0)
[2019-10-11 09:03] VITALS: RESP 16
[2019-10-11] MEDS: promethazine 25 mg/mL SDV 1 mL IV (09:03)
[2019-10-11] MEDS: morphine 4 mg/mL SDV 1 mL IVP (09:03)
[2019-10-11 09:08] LABS: Alanine Aminotransferase 15 U/L (0-33); Albumin Level 4.5 g/dL (3.5-5.2); Alkaline Phosphatase 36 IU/L (35-105); Anion Gap 33.1 (5-19); Aspartate Amino Transferase 29 U/L (0-32); Carbon Dioxide 16 mmol/L (22-29); Chloride 92 mmol/L (98-107); Globulin 3.2 g/dL (1.3-4.6); Glomerular Filtration Rate 1.8 mL/min (90-130); Glucose 109 mg/dL (65-115); Potassium 5.1 mmol/L (3.5-5.1); Sodium 136 mmol/L (136-145); Total Bilirubin 0.3 mg/dL (0.15-1.2); Total Protein 7.7 g/dL (6.6-8.7)
[2019-10-11 09:12] VITALS: BP 146/87; PULSE 72; RESP 13
[2019-10-11 09:16] LABS: Calcium 4.2 mg/dL (8.5-10.5)
[2019-10-11 09:17] LABS: Blood Urea Nitrogen 141 mg/dL (6-20)
--- NOTE | 2019-10-11 09:21 | PC.NURSE ---
Reported to this nurse by PILAR.
[2019-10-11 09:49] LABS: Bilirubin Urine Neg (NEGATIVE); Blood Urine 3+ (Negative); Glucose Urine UA 1+ (Normal); Ketones Urine Negative (Negative); Leukocyte Esterase Urine 2+ (Negative); Nitrate Urine Negative (Negative); Protein Urine 3+ (Negative); Urine Appearance Hazy (CLEAR); Urine Color Yellow (Yellow); Urobilinogen Urine Norm (Negative); pH Urine 6 (5-7)
[2019-10-11 09:50] VITALS: BP 123/86; PULSE 82; RESP 17; O2SAT 94
[2019-10-11 09:50] LABS: RBC Urine 40-50 /hpf (0-2); WBC Urine >100 /hpf (0-5)
[2019-10-11 09:51] LABS: Add Urine Culture? No; Bacteria Urine 2+; Squamous Epithelial Cell Urine 25-40 (0-5)
--- NOTE | 2019-10-11 09:56 | PC.NURSE ---
Patient resting comfortably with both eyes closed at this time. Patient does wake and verbalized pain has been reduced. Will continue to monitor.
[2019-10-11 10:00] VITALS: BP 140/96; PULSE 75; RESP 16; O2SAT 94
--- NOTE | 2019-10-11 10:16 | PC.NURSE ---
Small amount of bleeding noted from the right nare, nose clamp applied to the area, mid-level caring for patient notified and present in room during clamp application. Pt tolerated well.
[2019-10-11 10:19] LABS: Partial Thromboplastin Time 38.3 SECONDS (23.9-36.7)
[2019-10-11] MEDS: haloperidol inj 5 mg/mL INJ 1 mL IVP (11:02)
[2019-10-11 11:28] VITALS: BP 134/91; PULSE 79; RESP 16; O2SAT 98
== END 2019-10-11 11:28 | disposition home or self-care (01) ==
PROVIDERS: Emergency Provider Physician Assistant; Family Provider Family Medicine; PCP Family Medicine
DX: I12.0 Hypertensive chronic kidney disease with stage 5 chronic kidney disease or end stage renal disease (principal); N18.6 End stage renal disease; Q61.3 Polycystic kidney, unspecified; N25.0 Renal osteodystrophy; B18.2 Chronic viral hepatitis C; F17.200 Nicotine dependence, unspecified, uncomplicated; Z79.891 Long term (current) use of opiate analgesic; Z86.14 Personal history of Methicillin resistant Staphylococcus aureus infection
CPT/HCPCS: 80053; 81001; 85025; 85610; 85730; 96374; 96375; 99283; A9270; J1630; J2270; J2550

== ENCOUNTER 2019-10-18 05:17 | Emergency (ER) | payer MEDICARE, MEDICAID, SELFPAY ==
[2019-10-18 05:18] VITALS: BP 140/77; PULSE 80; RESP 16; TEMP 36.9; O2SAT 97; BMI 13.1
--- NOTE | 2019-10-18 06:05 | ED_ITS ---
HPI - Weakness General: Chief complaint: Weakness Stated complaint: generalized weakness Time Seen by Provider: 10/18/19 05:43 Source: patient Mode of arrival: ambulatory History of Present Illness: HPI Narrative: Patient is a 39-year-old female who is very well-known to the ER. She states that she is been having generalized weakness and difficulty walking. She denies any fevers. Patient has renal altagracia lure and is currently on hospice and has not received dialysis in the month. Patient denies any chest pain. MD Complaint: generalized weakness Onset (ago): month(s) Location: generalized Associated symptoms: Denies chest pain, chills, dysuria, easy bruising, fever(s), headache(s), nausea or vomiting Review of Systems Const: Denies: fever, chills, body aches or change in appetite Eyes: Denies: blurry vision or eye discomfort ENMT: Denies: throat pain or dental pain Card: Denies: chest pain Resp: Denies: shortness of breath GI: Denies: abdominal pain, nausea, vomiting or diarrhea : Denies: painful urination Musc: Denies: neck pain or back pain Skin/Breast: Denies: rash Neuro: Denies: headache Psych: Denies: depression Kevan/Lymph: Denies: easy bruising All/Imm: Denies: hives PFSH ED PFSH: Medical History Anemia Chronic hepatitis C sees Dg Weiss ESRD (end stage renal disease) on dialysis -patient has hx of ESRD secondary to PCKD, is dialysis-dependent (HD on MWF); access is AV fistula (LUE) -has hx of non-compliance with dialysis sessions -Nephrology consulted as will likely need HD due to noted hyperkalemia, evidence of fluid overload on imaging, dyspnea, higher than baseline oxygen requirement. Patient declined HD yesterday, scheduled for today which she has again declined. -continue to monitor renal function and electrolytes -avoid nephrotoxins and renally dose meds -renal diet as tolerated -Anuric at baseline Hemodialysis access, AV graft Left upper extremity Hypertension -had hypertensive urgency in ED; BP now improved -continue to monitor vital signs Polycystic kidney disease Polysubstance abuse Renal osteodystrophy Staphylococcus aureus bacteremia MSSA bacteremia 08/14-09/15 Thrombocytopenia Surgical History S/P dialysis catheter insertion (Unknown) S/P tooth extraction Family History Other Diabetes Hypertension Polycystic kidney disease Social History Smoking and tobacco status: current every day smoker Alcohol intake: never Desire information about substance/drug rehabilitation?: No Counseling given: Yes Caregiver/support person: Yes Household members: family Marital status: Single Physical Exam Const: COMMON NORMALS: oriented x3 GENERAL APPEARANCE: ill appearing and frail appearing HENMT: COMMON NORMALS: normocephalic and head/scalp atraumatic HEAD & SCALP: normocephalic and atraumatic Eye: COMMON NORMALS: PERRL and EOMs intact bilaterally PUPIL: Yes PERRL Neck/C-Spine: COMMON NORMALS: full ROM and supple Chest: COMMONS NORMALS: inspection of chest normal and palpation of chest normal Resp: COMMON NORMALS: normal respiratory effort, no retractions, no use of accessory muscles and clear to auscultation bilaterally AUSCULTATION: clear to auscultation bilaterally Cardio: COMMON NORMALS: regular rate, regular rhythm and no murmurs RATE: regular rate RHYTHM: regular rhythm GI: COMMON NORMALS: normal to inspection, nondistended, normoactive bowel soun ds, soft to palpation, non-tender and no masses PALPATION: Yes soft Extremity: COMMON NORMALS: normal to inspection and full ROM Neuro: COMMON NORMALS: oriented x3, moves all extremities and no focal motor deficits Psych: COMMON NORMALS: mental status grossly normal, thought process normal and cooperative THOUGHT PROCESS: normal thought process Skin: COMMON NORMALS: no rashes or lesions noted and no wounds GENERAL SKIN EXAM: no rashes or lesions noted Course Vital Signs: Vital signs: Vital Signs Temperature 98.4 F 10/18/19 05:18 Pulse Rate 80 10/18/19 05:18 Respiratory Rate 16 10/18/19 06:23 Blood Pressure 140/77 10/18/19 05:18 Pulse Oximetry 97 10/18/19 05:18 MDM - Weakness MDM Narrative: Medical decision making narrative: Patient presents here with generalized weakness likely from end-stage renal disease. She is now considering going back on hospice. I spoke to Dr. Coles case management saw her and will admit for observation and likely place in half-way tomorrow. Patient wants no treatment at this time in the ER for her hyperkalemia. Patient admitted for observation. Lab Data: Labs: Lab Results 10/18/19 10/18/19 10/18/19 Range/Units 06:07 06:07 07:20 WBC 9.6 (4.0-10.0) 10^3/ uL RBC 2.76 L (4.1-5.3) 10^6/u L Hgb 7.8 L (11.5-15.3) g/dL Hct 26.2 L (37.0-47.0) % MCV 94.9 (81-99) fL MCH 28.3 (28.0-34.0) pg MCHC 29.8 L (30.0-36.0) g/dL RDW 13.6 (12.1-15.1) % Plt Count 90 L (130-400) 10^3/c mm MPV 12.6 H (7.4-10.4) fL Neut % (Auto) 95.8 % Lymph % (Auto) 0.6 % Owen % (Auto) 3.1 % Eos % (Auto) 0.0 % Baso % (Auto) 0.1 % Neut # (Auto) 9.1 H (1.8-7.7) 10^3/u L Lymph # (Auto) 0.1 L (0.8-4.8) 10^3/u L Owen # (Auto) 0.3 (0.2-0.9) 10^3/u L Eos # (Auto) 0.0 (0.0-0.8) 10^3/u L Baso # (Auto) 0.0 (0.0-0.1) 10^3/u L Nucleated RBC % (a uto) 0 % Nucleated RBCs # 0.0 /100WBC Sodium Cancelled 133 L Potassium Cancelled 7.7 H* Chloride Cancelled 89 L Carbon Dioxide Cancelled 15 L Anion Gap Cancelled 36.7 H BUN Cancelled 147 H* Creatinine Cancelled 21.4 H* GFR Calculation Cancelled 1.8 L Glucose Cancelled 133 H Calcium Cancelled 4.1 L* Magnesium Cancelled 2.6 H Total Bilirubin Cancelled 0.4 AST Cancelled 41 H ALT Cancelled 25 Alkaline Phosphata se Cancelled 44 Total Protein Cancelled 7.5 Albumin Cancelled 4.2 Globulin Cancelled 3.3 Discharge Plan Discharge Patient Disposition: Placed in Observation Clinical Impression: ESRD (end stage renal disease) on dialysis, Hyperkalemia, Weakness Condition: Stable Prescriptions: No Action Auryxia 210 mg iron tablet See Rx Instructions .ROUTE .COMPLEX RF: 0 clonidine 0.3 mg/24 hr patch weekly 0.3 mg transdermal Q7D RF: 0 nifedipine 30 mg tablet extended release 30 mg PO DAILY Qty: 30 RF: 0 metoprolol succinate 100 mg Tablet Extended Release 24 Hr 100 mg PO BEDTIME RF: 0 losartan 100 mg Tablet 100 mg PO DAILY RF: 0 sofosbuvir-velpatasvir [Epclusa] 400-100 mg Tablet 1 tab PO DAILY RF: 0 Xanax 0.25 mg PO TID PRN (Reason: unknown) RF: 0 Excedrin Migraine 250-250-65 mg Tablet 1 tab PO PRN RF: 0 promethazine 25 mg tablet 25 mg PO Q6H RF: 0 morphine 15 mg tablet 15 - 30 mg PO Q4H PRN (Reason: Pain) RF: 0 minoxidil 2.5 mg tablet See Rx Instructions .ROUTE .COMPLEX RF: 0 metoprolol tartrate 25 mg tablet See Rx Instructions .ROUTE .COMPLEX RF: 0 Referrals: Caire Man DO [Primary Care Provider] - Coding Level of Care Code 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
[2019-10-18 06:22] LABS: Basophils % 0.1 %; Hematocrit 26.2 % (37.0-47.0); Hemoglobin 7.8 g/dL (11.5-15.3); Lymphocytes # 0.1 10^3/uL (0.8-4.8); Lymphocytes % 0.6 %; Mean Corpuscular HGB Conc 29.8 g/dL (30.0-36.0); Mean Corpuscular Hemoglobin 28.3 pg (28.0-34.0); Mean Corpuscular Volume 94.9 fL (81-99); Mean Platelet Volume 12.6 fL (7.4-10.4); Monocytes # 0.3 10^3/uL (0.2-0.9); Monocytes % 3.1 %; Neutrophils # 9.1 10^3/uL (1.8-7.7); Neutrophils % 95.8 %; Nucleated Red Blood Cells % 0 %; Platelet Count 90 10^3/cmm (130-400); Red Blood Count 2.76 10^6/uL (4.1-5.3); Red Cell Distribution Width 13.6 % (12.1-15.1); White Blood Count 9.6 10^3/uL (4.0-10.0)
[2019-10-18 06:23] VITALS: RESP 16
[2019-10-18] MEDS: morphine 4 mg/mL SDV 1 mL IM (06:23)
[2019-10-18] MEDS: ondansetron 2 mg/ML SDV 2 mL 4 MG IM (06:24)
[2019-10-18 07:40] LABS: Alanine Aminotransferase 25 U/L (0-33); Albumin Level 4.2 g/dL (3.5-5.2); Alkaline Phosphatase 44 IU/L (35-105); Anion Gap 36.7 (5-19); Aspartate Amino Transferase 41 U/L (0-32); Carbon Dioxide 15 mmol/L (22-29); Chloride 89 mmol/L (98-107); Globulin 3.3 g/dL (1.3-4.6); Glomerular Filtration Rate 1.8 mL/min (90-130); Glucose 133 mg/dL (65-115); Magnesium 2.6 mg/dL (1.7-2.3); Sodium 133 mmol/L (136-145); Total Bilirubin 0.4 mg/dL (0.15-1.2); Total Protein 7.5 g/dL (6.6-8.7)
[2019-10-18 07:57] LABS: Blood Urea Nitrogen 147 mg/dL (6-20); Potassium 7.7 mmol/L (3.5-5.1)
[2019-10-18 07:58] LABS: Calcium 4.1 mg/dL (8.5-10.5)
--- NOTE | 2019-10-18 09:55 | PM.HP ---
Providers/Chief Complaint Primary Care Provider: Carie Man DO Chief Complaint: WEAKNESS, HYPERKALEMIA, ESRD History of Present Illness Ruby Cortés is a 39 year old female who is well-known to our hospitalist service for her noncompliance multiple admissions because of missing dialysis sessions, hyperkalemia polysubstance abuse who had been at hospice care for last 1 month as she thinks dialysis will not add to her lifestyle and makes her feel worse. She was brought in today by her grandmother with whom she has been living at her long term and is not able to take care of her anymore safely so she was brought in to be placed at SNF. As per the patient she had declined hospice today morning because they are not meeting expectation and keeping her comfortable and also they will not be able to take care of her until she does not have a home. As per the patient and grandmother she cannot live at the long term anymore as per the institutional policies. In ER she was found to have gross abnormalities in blood work due to her CKD. Patient continues to decline any treatment along with dialysis. Patient in the ER is alert, oriented times self place and while she is in the hospital, she denies of having any suicidal or homicidal ideations. During the whole interview her grandmother's bedside. Her grandmother denies of her having any confusion in the last couple of days. Patient complains of nausea with vomiting on eating or drinking anything. Patient states she has not been able to eat for last 1 week. She complains of feeling very weak and tired. Denies of any palpitations, chest pain, headache, bleeding from anywhere. She complains of constipation. Review of Systems Const: Reports: chills, body aches, change in appetite and malaise; Denies: fever, night sweats, diaphoresis, change in sleep pattern, daytime sleepiness or snoring Eyes: Denies: change in vision, blurry vision, photophobia, eye discomfort or eye discharge ENMT: Denies: throat pain, enlarged tonsils, hoarseness, mouth pain, oral sores/lesions, dry mouth, tinnitus, nasal congestion or post nasal drip Card: Reports: shortness of breath on exertion; Denies: chest pain, palpitations, irregular heart rhythm, edema, swelling of feet/ankles, lightheadedness, syncope, pre-syncope, shortness of breath when lying down, leg pain with exertion or bluish discoloration of hands/feet Resp: Denies: shortness of breath, productive cough, non-productive cough, wheezing, stridor, pain on inspiration, change in phlegm color, coughing up blood or chest congestion GI: Reports: abdominal pain, nausea and constipation; Denies: vomiting, vomiting blood, coffee grounds in vomit, difficulty swallowing, heartburn/indigestion, diarrhea, bloating, cramping, change in bowel habits, painful bowel movements, blood in stool or black tarry stool : Denies: flank pain, painful urination, urinary frequency, urinary urgency, urinary hesitancy, nighttime urination or blood in urine Musc: Denies: neck pain, back pain, extremity pain, joint pain, joint swelling, redness, joint stiffness or limited range of motion Neuro: Denies: headache, numbness in extremities, weakness in extremities, changes in sensation, lack of coordination, difficulty walking, frequent falls, dizziness, vertigo, confusion, slurred speech, difficulty communicating thoughts or seizure-like activity Psych: Denies: anxiety, depression, mood swings, panic attacks, hopelessness or irritability Endo: Denies: excessive urination, excessive thirst, tired all the time, cold intolerance, excessive sweating, flushing or heat intolerance Kevan/Lymph: Denies: easy bruising or easy bleeding All/Imm: Denies: tongue swelling, facial swelling or acute wheezing Medications/Allergies Allergies Allergy/AdvReac Type Severity Reaction Status Date / Time clindamycin Allergy Unknown Unknown Verified 10/11/19 08:16 codeine Allergy Unknown Unknown Verified 10/11/19 08:16 erythromycin base Allergy Unknown Unknown Verified 10/11/19 08:16 ketorolac [From Toradol] Allergy Unknown Unknown Verified 10/11/19 08:16 levofloxacin [From Levaquin] Allergy Unknown Unknown Verified 10/11/19 08:16 ondansetron [From Zofran] Allergy Unknown Unknown Verified 10/11/19 08:16 Penicillins Allergy Unknown Unknown Verified 10/11/19 08:16 tramadol [From Ultram] Allergy Unknown Unknown Verified 10/11/19 08:16 PFSH Acute PFSH: Medical History Anemia Chronic hepatitis C sees Conte Depression ESRD (end stage renal disease) on dialysis -patient has hx of ESRD secondary to PCKD, is dialysis-dependent (HD on MWF); access is AV fistula (LUE) -has hx of non-compliance with dialysis sessions -Nephrology consulted as will likely need HD due to noted hyperkalemia, evidence of fluid overload on imaging, dyspnea, higher than baseline oxygen requirement. Patient declined HD yesterday, scheduled for today which she has again declined. -continue to monitor renal function and electrolytes -avoid nephrotoxins and renally dose meds -renal diet as tolerated -Anuric at baseline Hemodialysis access, AV graft Left upper extremity Hypertension -had hypertensive urgency in ED; BP now improved -continue to monitor vital signs Polycystic kidney disease Polysubstance abuse Renal osteodystrophy Staphylococcus aureus bacteremia MSSA bacteremia 08/14-09/15 Thrombocytopenia Surgical History S/P dialysis catheter insertion (Unknown) S/P tooth extraction Family History Other Diabetes Hypertension Polycystic kidney disease Social History Smoking and tobacco status: current every day smoker Alcohol intake: never Desire information about substance/drug rehabilitation?: No Counseling given: Yes Caregiver/support person: Yes Household members: family Marital status: Single Vitals/I&O/Wt Last Vital Signs Temp 98.4 F 10/18/19 05:18 Pulse 80 10/18/19 05:18 Resp 16 10/18/19 06:23 BP 140/77 10/18/19 05:18 Pulse Ox 97 10/18/19 05:18 Weight last 48 hrs Weight 33.566 kg Physical Exam Narrative: EXAM NARRATIVE: General: No acute distress, AO x3, pallor, dehydrated, HEENT: PERRLA, pupils bilaterally equal and reactive Chest: Normal vesicular breath sounds, no added sounds, equal good air entry bilaterally CVS: S1-S2 regular, no murmurs, no tachycardia, no gallops, no rubs Abdomen: Soft, nontender, no organomegaly, bowel sounds present Neuro: No focal deficits, no facial deformity, AO x3, power 5/5 in all limbs Data : 10/18/19 06:07 10/18/19 07:20 A&P Assessment and plan (1) End-stage renal disease (ESRD): Status: Acute Code(s): N18.6 - End stage renal disease (2) Hospice care patient: Status: Acute Code(s): Z51.5 - Encounter for palliative care (3) Hyperkalemia: Status: Acute Code(s): E87.5 - Hyperkalemia (4) Weakness: Status: Acute Code(s): R53.1 - Weakness Additional A&P Information Spoke with detail with patient and her grandmother regarding her goals of care. Patient continues to decline any treatment and any further dialysis. She states dialysis as per her does not help to regain her goals of care. She thinks dialysis is not helping her at all and even after dialysis she continues to feel in her own words blah . Discussed in detail with patient if patient does not want dialysis she would continue to have worsening hyperkalemia, BUN, creatinine leading her to have more nausea, vomiting, abdominal pain, palpitations and can even lead to her . She states all she wants is to be comfortable. Discussed with the patient that she wants to be comfortable and not have dialysis or any other kind of treatment anymore progress note for her would be hospice. Consulted care coordination for further assistance regarding hospice referral and state placement to a residential with hospice. Both me and managed care provider discussed in detail with both Grandmother and patient herself regarding meaning of hospice and how her going to SNF with hospice will help her achieve her goals of care. Patient states she would want to go ahead with hospice care at SNF. We will admit the patient to hospital with hospice. Attestations Medical Necessity Statement*: Less than 2 midnights for transition to SNF with hospice Time Spent in Patient Care: Greater than 35 minutes (>than 50% of time spent in counselling and/or direct pt care on unit). 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
[2019-10-18 10:29] VITALS: BP 125/81; PULSE 76; RESP 20; O2SAT 96
[2019-10-18 12:37] VITALS: BP 125/81; PULSE 76; RESP 18; O2SAT 96
--- NOTE | 2019-10-18 19:43 | P.DS_ITS ---
Discharge Providers Date of Discharge: October 18, 2019 Attending Provider at Discharge: Francis Rosenthal MD Primary Care Provider: Carie Man DO Diagnoses at Discharge Discharge Diagnosis (1) End-stage renal disease (ESRD): Status: Acute (2) Hospice care patient: Status: Acute (3) Hyperkalemia: Status: Acute (4) Weakness: Status: Acute Reason for Visit Reason for Visit: Reason For Visit: WEAKNESS, HYPERKALEMIA, ESRD Hospital Course Discharge Summary: Please read my H&P from today regarding details. Patient was accepted at [facility] with hospice. Patient was discharged directly from the ER to SNF. Discharge Data Data Completed and Pending: Labs from last 24 hours 10/18/19 10/18/19 10/18/19 07:20 06:07 06:07 WBC 9.6 RBC 2.76 L Hgb 7.8 L Hct 26.2 L MCV 94.9 MCH 28.3 MCHC 29.8 L RDW 13.6 Plt Count 90 L MPV 12.6 H Neut % (Auto) 95.8 Lymph % (Auto) 0.6 Caroline % (Auto) 3.1 Eos % (Auto) 0.0 Baso % (Auto) 0.1 Neut # (Auto) 9.1 H Lymph # (Auto) 0.1 L Caroline # (Auto) 0.3 Eos # (Auto) 0.0 Baso # (Auto) 0.0 Nucleated RBC % (a uto) 0 Nucleated RBCs # 0.0 Sodium 133 L Cancelled Potassium 7.7 H* Cancelled Chloride 89 L Cancelled Carbon Dioxide 15 L Cancelled Anion Gap 36.7 H Cancelled BUN 147 H* Cancelled Creatinine 21.4 H* Cancelled GFR Calculation 1.8 L Cancelled Glucose 133 H Cancelled Calcium 4.1 L* Cancelled Magnesium 2.6 H Cancelled Total Bilirubin 0.4 Cancelled AST 41 H Cancelled ALT 25 Cancelled Alkaline Phosphata se 44 Cancelled Total Protein 7.5 Cancelled Albumin 4.2 Cancelled Globulin 3.3 Cancelled Vitals: Last Vital Signs Temp 98.4 F 10/18/19 05:18 Pulse 76 10/18/19 12:37 Resp 18 10/18/19 12:37 BP 125/81 10/18/19 12:37 Pulse Ox 96 10/18/19 12:37 Discharge Plan Discharge Patient Disposition: Hospice - Home Clinical Impression: ESRD (end stage renal disease) on dialysis, Hyperkalemia, Weakness Condition: Stable Prescriptions: No Action Auryxia 210 mg iron tablet See Rx Instructions .ROUTE .COMPLEX RF: 0 clonidine 0.3 mg/24 hr patch weekly 0.3 mg transdermal Q7D RF: 0 nifedipine 30 mg tablet extended release 30 mg PO DAILY Qty: 30 RF: 0 metoprolol succinate 100 mg Tablet Extended Release 24 Hr 100 mg PO BEDTIME RF: 0 losartan 100 mg Tablet 100 mg PO DAILY RF: 0 sofosbuvir-velpatasvir [Epclusa] 400-100 mg Tablet 1 tab PO DAILY RF: 0 Xanax 0.25 mg PO TID PRN (Reason: unknown) RF: 0 Excedrin Migraine 250-250-65 mg Tablet 1 tab PO PRN RF: 0 promethazine 25 mg tablet 25 mg PO Q6H RF: 0 morphine 15 mg tablet 15 - 30 mg PO Q4H PRN (Reason: Pain) RF: 0 minoxidil 2.5 mg tablet See Rx Instructions .ROUTE .COMPLEX RF: 0 metoprolol tartrate 25 mg tablet See Rx Instructions .ROUTE .COMPLEX RF: 0 Discharge Orders: Discharge Order (Routine); Ordered 10/18/19 Ordered By: Karlee Jha Referrals: Carie Man DO [Primary Care Provider] - Discharge Diet: Advance as tolerated Discharge Activity: Resume usual activity Discharge Date/Time: 10/18/19 14:50 Discharge Attestations Time Spent in Discharge Care*: less than 30 min Quality Metrics Clinical Quality Measures During this hospital stay, did patient experience: None Coding Level of Care Code Acute Resolution Specialist for Rosalio Fwtootie Diagnoses End-stage renal disease (ESRD) N18.6 Hospice care patient Z51.5 Hyperkalemia E87.5 Weakness R53.1
== END 2019-10-18 14:50 | disposition hospice, home (50) ==
LOC: ER 10:06 → MEDSURG 10:28 → ER 10:41
PROVIDERS: Emergency Medicine; Emergency Provider Emergency Medicine; Family Provider Family Medicine; PCP Family Medicine; Visit Provider Student in an Organized Health Care Education/Training Program
DX: I12.0 Hypertensive chronic kidney disease with stage 5 chronic kidney disease or end stage renal disease (principal); N18.6 End stage renal disease; E87.5 Hyperkalemia; R53.1 Weakness; Q61.3 Polycystic kidney, unspecified; N25.0 Renal osteodystrophy; D69.6 Thrombocytopenia, unspecified; F17.200 Nicotine dependence, unspecified, uncomplicated; Z86.14 Personal history of Methicillin resistant Staphylococcus aureus infection; Z99.2 Dependence on renal dialysis
CPT/HCPCS: 12345; 36415; 80053; 83735; 85025; 96372; 99282; 99285; A9270; J2270; J2405